=== PATIENT | female | born 1930 | race Caucasian/White ===

== ENCOUNTER 2017-02-04 16:18 | Inpatient (IN) | payer MEDICARE ==
[~2017-02-04 16:18] MED LIST: Dexamethasone 20 MG/5 ML VIAL ONE; Ondansetron HCl/PF 4 MG/2 ML Vial ONE; Propofol 200 MG/20 ML VIAL ONE
[2017-02-04 17:31] LABS: ALT (SGPT) 16 U/L (8-55); AST (SGOT) 26 U/L (5-34); Alkaline Phosphatase 110 U/L (40-150); Anion Gap 13 mmol/L (10-20); BUN (Urea Nitrogen) 11 mg/dL (9.8-20.1); Bilirubin, Total 0.8 mg/dL (0.2-1.2); Calc. Creatinine Clearance 0 mL/min (70-130); Calcium 9.6 mg/dL (7.8-10.44); Carbon Dioxide 25 mmol/L (23-31); Chloride 95 mmol/L (98-107); Estimated GFR-MDRD 85; Globulin 3.7 g/dL (2.4-3.5); Glucose 101 mg/dL (83-110); Potassium 3.6 mmol/L (3.5-5.1); Protein, Total 7.7 g/dL (6.0-8.3); Sodium 129 mmol/L (136-145)
[2017-02-04] MEDS ORDERED: Fentanyl 100 MCG/2 ML VIAL ONE ×2 (17:38→21:00)
[2017-02-04] MEDS ORDERED: Piperacillin/Tazobactam 3.375 GM in Sodium Chloride 0.9% 100 ML IVPB SCH ×2 (18:00→23:59)
[2017-02-04] MEDS ORDERED: Neomycin-Polymyxin 1 ML AMP ONE ×2 (18:05→19:43)
[2017-02-04 18:09] LABS: Band 6 % (5-11); Differential Comment Atypical Mono-like; Hemoglobin 9.7 g/dL (12.0-16.0); Lymphocytes 8 % (21-51); MDiff Complete? YES; Mean Corpuscular HGB CONC 30.9 g/dL (32.0-36.0); Mean Corpuscular Hemoglobin 28.1 pg (27.0-31.0); Mean Corpuscular Volume 90.9 fl (81.0-99.0); Mean Platelet Volume 9.7 fL (7.4-10.4); Metamyelocyte 4 % (0-0); Monocytes 45 % (0-10); Myelocyte 5 % (0-0); Neutrophil 16 % (42-75); PLT Morphology Comment Appears Adequate; Platelet Count 249 thou/uL (130-400); Polychromasia MODERATE = 3-4 cells (100X) (0-2/hpf); RBC Distribution Width 14.3 % (11.5-14.5); Reactive Lymphocytes 3 % (0-10); Red Blood Cell (RBC) Count 3.43 mill/uL (4.20-5.40); Reflex for Review?? YES
[2017-02-04] MEDS ORDERED: Morphine 4 MG/ML VIAL ONE (18:55)
--- NOTE | 2017-02-04 19:04 | RAD ---
RIGHT FEMUR TWO VIEWS: History: Pain. Comparison: None. FINDINGS: No fracture. No cortical irregularity. No periosteal reaction. IMPRESSION: No fracture. POS: ANNAMARIA
--- NOTE | 2017-02-04 19:05 | RAD ---
FOUR VIEWS RIGHT KNEE: History: Pain. Comparison: None. FINDINGS: Suprapatellar effusion. Joint spaces are preserved. No fracture. No malalignment. IMPRESSION: Suprapatellar effusion. POS: ANNAMARIA
[2017-02-04] MEDS ORDERED: Piperacillin/Tazobactam 3.375 GM VIAL ONE (19:58)
[2017-02-04] MEDS ORDERED: Acetaminophen 325 MG TAB PO PRN (20:50)
[2017-02-04] MEDS ORDERED: HYDROcodone/Acetaminophen 7.5/325 mg Tablet PO PRN (20:50)
[2017-02-04] MEDS ORDERED: Ondansetron HCl/PF 4 MG/2 ML Vial IVP PRN (20:52)
[2017-02-04] MEDS ORDERED: Promethazine HCl 25 MG/ML VIAL IM PRN (20:52)
[2017-02-04] MEDS ORDERED: Promethazine HCl 25 MG/ML VIAL SLOW IVP PRN (20:52)
[2017-02-04] MEDS ORDERED: Timolol 0.5% Ophth Soln 5 ml Bottle EA EYE SCH (23:00)
[2017-02-04] MEDS ORDERED: Brimonidine Tartrate 0.2% Ophth Soln 5 ml Bottle EA EYE SCH (23:00)
[2017-02-04] MEDS ORDERED: Dorzolamide HCl 2% Ophth Soln 10 ml Bottle EA EYE SCH (23:00)
[2017-02-04] MEDS: Sodium Chloride 0.9% 1,000 ML IV SCH (23:21)
[2017-02-04] MEDS: Latanoprost 0.005% Ophth Soln 2.5 ml Bottle EA EYE SCH ×2 (23:25→23:31)
[2017-02-04] MEDS ORDERED: Latanoprost 0.005% Ophth Soln 2.5 ml Bottle L EYE SCH (23:45)
[2017-02-05] MEDS: Piperacillin/Tazobactam 3.375 GM in Sodium Chloride 0.9% 100 ML IVPB SCH ×4 (02:30→20:54)
[2017-02-05 05:23] LABS: Band 10 % (5-11); Hemoglobin 8.9 g/dL (12.0-16.0); Lymphocytes 14 % (21-51); MDiff Complete? YES; Mean Corpuscular HGB CONC 30.4 g/dL (32.0-36.0); Mean Corpuscular Hemoglobin 28.1 pg (27.0-31.0); Mean Corpuscular Volume 92.7 fl (81.0-99.0); Mean Platelet Volume 10.3 fL (7.4-10.4); Metamyelocyte 4 % (0-0); Monocytes 35 % (0-10); Myelocyte 1 % (0-0); Neutrophil 36 % (42-75); PLT Morphology Comment Appears Adequate; Platelet Count 215 thou/uL (130-400); RBC Distribution Width 14.3 % (11.5-14.5); Red Blood Cell (RBC) Count 3.17 mill/uL (4.20-5.40); White Blood Cell (WBC) Count 63.5 thou/uL (4.8-10.8)
[2017-02-05] MEDS: Levothyroxine Sodium 75 MCG TAB PO SCH (05:27)
[2017-02-05] MEDS: Brimonidine Tartrate 0.2% Ophth Soln 5 ml Bottle EA EYE SCH ×2 (08:27→21:00)
[2017-02-05] MEDS: Dorzolamide HCl 2% Ophth Soln 10 ml Bottle EA EYE SCH ×2 (08:27→21:00)
[2017-02-05] MEDS: Timolol 0.5% Ophth Soln 5 ml Bottle EA EYE SCH ×2 (08:28→21:00)
[2017-02-05] MEDS: Multivit, Therapeutic 1 TAB PO SCH (08:30)
[2017-02-05] MEDS: Vancomycin HCl 1 GM in Premix Bag 1 BAG IVPB SCH ×2 (08:30→21:02)
--- NOTE | 2017-02-05 09:40 | OP ---
DATE OF SURGERY: 02/04/2017 PREOPERATIVE DIAGNOSIS: Right septic hip. POSTOPERATIVE DIAGNOSIS: Right septic hip. SURGICAL PROCEDURE: Incision and drainage of right hip. ANESTHESIA: LMA. SURGEON: Rigo Saldaña M.D. BLOOD LOSS: Approximately 50 mL. COMPLICATIONS: None. DRAINS: Hemovac x 1. SPECIMEN: Swabs x2 sent for Gram stain culture and sensitivity. OUTCOME: Satisfactory. INDICATIONS: The patient is an 86-year-old lady with a 48-hour history of worsening right thigh and groin pain. Earlier today the patient was seen and evaluated at the [facility] in [facility] where workup included x-ray of the hip, CT scan of the hip as well as laboratory. ASSESSMENT: The patient was found to have an elevated white blood cell count of 40,000, extreme groi n pain on the right side and a CT scan that showed evidence of an effusion within the right hip. Giv en concern regarding septic hip the patient was transferred to [facility]. Upon my assessment in the emergency room the patient was found to have severe groin pain with any type of hip flexion or even log rolling of the thigh and her white count had elevated up to 50,000. X-rays of the femur sh owed no evidence of mass within the thigh. Her knee was found to be relatively normal, although she complained of some nonspecific knee pain bilaterally. Given the findings of extreme pain with any hi p motion and elevated white count, we have opted to proceed with incision and drainage of this right hip. Informed consent has been obtained. I believe all questions answered. PROCEDURE IN DETAIL: After the induction of LMA anesthesia, the patient was positioned in the left l ateral decubitus position and then a sterile prep and drape was performed of the right lower extremit y. Next, a small curvilinear incision was made centered over the greater trochanter. After the skin was sharply incised, dissection was carried down bluntly to the underlying tensor fascia and fascia marko. This was incised in line with the skin incision and reflected anteriorly and posteriorly. The trochanteric bursa was swept off of the short external rotators. Next, exploiting the interval betw een the piriformis and the superior gemelli the capsule was identified and a T capsulotomy was perfor med. It should be noted that a yellow colored slightly cloudy fluid did come up from the hip capsule . This was swabbed x2 and sent for Gram stain, culture and sensitivity. There was not an excessive amount of volume within the hip capsule, although clearly it was under pressure. Next 6 liters yolette l saline using Pulsavac was irrigated through the hip through this capsulotomy. At the completion of this, the hip capsule was left open and a Hemovac drain was laid overlying the hip capsule. The fas jhonny marko and tensor fascia was reapproximated with #2 Vicryl in running fashion and then Puja's fas jhonny closed in 0 Vicryl followed by 2-0 Vicryl and staple closure for the skin. A Xeroform gauze tape dressing was applied to the thigh and then the patient was transferred to recovery room in stable co ndition. There were no complications. She tolerated the procedure well.
--- NOTE | 2017-02-05 13:17 | EKG ---
Test Reason : STAT Blood Pressure : / mmHG Vent. Rate : 104 BPM Atrial Rate : 104 BPM P-R Int : 172 ms QRS Dur : 082 ms QT Int : 326 ms P-R-T Axes : 086 047 054 degrees QTc Int : 428 ms Sinus tachycardia Otherwise normal ECG No previous ECGs available Confirmed by MAU ZAMORA ([id number]) on 02/05/2017 1:17:20 PM Referred By: Confirmed By:MAU ZAMORA
[2017-02-05] MEDS: Sodium Chloride 0.9% 1,000 ML IV SCH (17:41)
[2017-02-05] MEDS: traMADol HCl 50 MG TAB PO PRN (18:01)
[2017-02-05] MEDS: Latanoprost 0.005% Ophth Soln 2.5 ml Bottle L EYE SCH (20:59)
[2017-02-06] MEDS: traMADol HCl 50 MG TAB PO PRN ×2 (01:30→13:28)
[2017-02-06] MEDS: Piperacillin/Tazobactam 3.375 GM in Sodium Chloride 0.9% 100 ML IVPB SCH ×4 (03:48→21:08)
[2017-02-06] MEDS: Levothyroxine Sodium 75 MCG TAB PO SCH (05:15)
[2017-02-06 06:45] LABS: Anion Gap 12 mmol/L (10-20); BUN (Urea Nitrogen) 17 mg/dL (9.8-20.1); Calc. Creatinine Clearance 47 mL/min (70-130); Calcium 8.9 mg/dL (7.8-10.44); Carbon Dioxide 25 mmol/L (23-31); Chloride 97 mmol/L (98-107); Estimated GFR-MDRD 62; Glucose 125 mg/dL (83-110); Magnesium 1.8 mg/dL (1.6-2.6); Potassium 3.5 mmol/L (3.5-5.1); Sodium 130 mmol/L (136-145)
[2017-02-06 06:57] LABS: White Blood Cell (WBC) Count 63.1 thou/uL (4.8-10.8)
[2017-02-06 08:04] LABS: Vancomycin, Trough 7.9 ug/mL
[2017-02-06 08:44] LABS: Band 1 % (5-11); Differential Comment Atypical Mono-like; Hemoglobin 6.9 g/dL (12.0-16.0); Lymphocytes 16 % (21-51); MDiff Complete? YES; Mean Corpuscular HGB CONC 30.3 g/dL (32.0-36.0); Mean Corpuscular Hemoglobin 27.8 pg (27.0-31.0); Mean Corpuscular Volume 91.9 fl (81.0-99.0); Mean Platelet Volume 10.1 fL (7.4-10.4); Monocytes 41 % (0-10); Neutrophil 37 % (42-75); Platelet Count 239 thou/uL (130-400); RBC Distribution Width 14.2 % (11.5-14.5); Red Blood Cell (RBC) Count 2.48 mill/uL (4.20-5.40)
[2017-02-06] MEDS: Timolol 0.5% Ophth Soln 5 ml Bottle EA EYE SCH ×2 (09:13→21:08)
[2017-02-06] MEDS: Brimonidine Tartrate 0.2% Ophth Soln 5 ml Bottle EA EYE SCH ×2 (09:14→21:08)
[2017-02-06] MEDS: Dorzolamide HCl 2% Ophth Soln 10 ml Bottle EA EYE SCH ×2 (09:14→21:08)
[2017-02-06] MEDS: Multivit, Therapeutic 1 TAB PO SCH (09:15)
[2017-02-06] MEDS: Vancomycin HCl 1 GM in Premix Bag 1 BAG IVPB SCH ×2 (10:09→21:07)
[2017-02-06] MEDS ORDERED: Polyethylene Glycol 3350 17 GM Packet PO PRN (10:27)
[2017-02-06] MEDS ORDERED: Bisacodyl 10 MG SUPP PR PRN (10:29)
[2017-02-06] MEDS: Sodium Chloride 0.9% 1,000 ML IV SCH (13:31)
--- NOTE | 2017-02-06 15:01 | PDOC.PN ---
- Subjective Encounter Start Date: 02/06/17 Encounter Start Time: 10:40 Pt seen and examined. Case discussed with Dr Saldaña, and ijeoma Kam of Oncology. Pt says her hip feels better, not moving her right leg much out o fear of pain. No F/C, no N/V/D/C. started on Vanc and zosyn post op by ortho. peripheral smear back and shows evidence of myoproliferation. Dr Linton of oncology contacted and recommended conservative management and agrees that right hip effusion *COULD* be reactive 10 point ROS performed and neg for all accept as per HPI - Objective Resuscitation Status: FULL Vital Signs & Weight: Vital Signs (12 hours) Temp Pulse Resp BP BP Pulse Ox 02/06/17 12:00 97.6 F 98 12 109/69 94 L 02/06/17 09:13 98 134/68 02/06/17 08:00 97.6 F 98 14 134/68 98 02/06/17 07:55 97.6 F 98 14 98 Weight Weight 143 lb I&O: 02/05/17 02/06/17 02/07/17 06:59 06:59 06:59 Intake Total 950 3240 Output Total 20 15 Balance 930 3225 Result Diagrams: 02/06/17 06:00 02/06/17 06:00 Radiology Reviewed by me: Yes EKG Reviewed by me: Yes Phys Exam - Physical Examination Constitutional: NAD HEENT: PERRLA, moist MMs, sclera anicteric, oral pharynx no lesions Neck: no nodes, no JVD, supple, full ROM Respiratory: no wheezing, no rales, no rhonchi, clear to auscultation bilateral Cardiovascular: RRR, no rub HSM apex, TESFAYE 2/6 RUSB Gastrointestinal: soft, non-tender, no distention, positive bowel sounds Musculoskeletal: no edema, pulses present Neurological: non-focal, normal sensation, moves all 4 limbs Lymphatic: no nodes Psychiatric: normal affect, A&O x 3 Skin: no rash, normal turgor, cap refill <2 seconds Dx/Plan (1) Arthritis of right hip Code(s): M16.11 - UNILATERAL PRIMARY OSTEOARTHRITIS, RIGHT HIP Status: Acute Comment: s/p I&D, bacterial culture neg so far. No path, cyto, tissue. pt feels markedly better. suspect noninfectious, RF neg, ESTEFANIA and ANCA pending. no AFB or fungal cultures or smears. hold abx fo rnow. no other effusions or pain at present. ESR 70s and CRP 15+ (2) Right hip joint effusion Code(s): M25.451 - EFFUSION, RIGHT HIP Status: Acute Comment: drained (3) Myelodysplasia (myelodysplastic syndrome) Code(s): D46.9 - MYELODYSPLASTIC SYNDROME, UNSPECIFIED Status: Chronic Comment: WBC 12k in 11/2016, now 50 up to 63K with monocytic predominance. Serum cytology ordered. Dr Kumar recommends concervative management and no BM Bx for now as it likely wont change treatment plan (4) Hypothyroidism Code(s): E03.9 - HYPOTHYROIDISM, UNSPECIFIED Status: Chronic Qualifiers: Hypothyroidism type: acquired Qualified Code(s): E03.9 - Hypothyroidism, unspecified Comment: AM TSH - Plan * .
--- NOTE | 2017-02-06 18:12 | EKG ---
Test Reason : C/O CHEST PAIN Blood Pressure : / mmHG Vent. Rate : 087 BPM Atrial Rate : 087 BPM P-R Int : 164 ms QRS Dur : 086 ms QT Int : 376 ms P-R-T Axes : 077 041 048 degrees QTc Int : 452 ms Normal sinus rhythm Normal ECG Confirmed by MAU ZAMORA ([id number]) on 02/06/2017 6:12:06 PM Referred By: ERA SCHOFIELD PA-C Confirmed By:MAU ZAMORA
[2017-02-06] MEDS: Docusate 100 MG CAP PO SCH (21:07)
[2017-02-06] MEDS: Latanoprost 0.005% Ophth Soln 2.5 ml Bottle L EYE SCH (21:08)
[2017-02-07] MEDS: traMADol HCl 50 MG TAB PO PRN (02:41)
[2017-02-07] MEDS: Piperacillin/Tazobactam 3.375 GM in Sodium Chloride 0.9% 100 ML IVPB SCH ×4 (02:41→20:58)
[2017-02-07] MEDS: Levothyroxine Sodium 75 MCG TAB PO SCH (05:23)
[2017-02-07 06:32] LABS: Anion Gap 10 mmol/L (10-20); BUN (Urea Nitrogen) 14 mg/dL (9.8-20.1); Calc. Creatinine Clearance 58 mL/min (70-130); Calcium 8.8 mg/dL (7.8-10.44); Carbon Dioxide 27 mmol/L (23-31); Chloride 99 mmol/L (98-107); Estimated GFR-MDRD 79; Glucose 107 mg/dL (83-110); Potassium 3.4 mmol/L (3.5-5.1); Sodium 133 mmol/L (136-145)
[2017-02-07 06:59] LABS: Band 6 % (5-11); Hemoglobin 6.7 g/dL (12.0-16.0); Lymphocytes 9 % (21-51); MDiff Complete? YES; Mean Corpuscular HGB CONC 31.3 g/dL (32.0-36.0); Mean Corpuscular Hemoglobin 28.8 pg (27.0-31.0); Mean Corpuscular Volume 92.1 fl (81.0-99.0); Monocytes 56 % (0-10); Neutrophil 29 % (42-75); Platelet Count 263 thou/uL (130-400); RBC Distribution Width 14.2 % (11.5-14.5); Red Blood Cell (RBC) Count 2.32 mill/uL (4.20-5.40); White Blood Cell (WBC) Count 40.2 thou/uL (4.8-10.8)
[2017-02-07 08:21] LABS: Antinuclear AB Negative (Negative)
[2017-02-07] MEDS: Vancomycin HCl 1 GM in Premix Bag 1 BAG IVPB SCH ×2 (10:22→20:58)
[2017-02-07] MEDS: Multivit, Therapeutic 1 TAB PO SCH (10:22)
[2017-02-07] MEDS: Docusate 100 MG CAP PO SCH ×2 (10:23→20:58)
[2017-02-07] MEDS: Dorzolamide HCl 2% Ophth Soln 10 ml Bottle EA EYE SCH ×2 (10:23→20:59)
[2017-02-07] MEDS: Brimonidine Tartrate 0.2% Ophth Soln 5 ml Bottle EA EYE SCH ×2 (10:23→20:59)
[2017-02-07] MEDS: HYDROcodone/Acetaminophen 7.5/325 mg Tablet PO PRN ×2 (10:36→21:01)
[2017-02-07] MEDS: Timolol 0.5% Ophth Soln 5 ml Bottle EA EYE SCH ×2 (10:38→20:59)
[2017-02-07] MEDS: Sodium Chloride 0.9% 1,000 ML IV SCH ×2 (10:40→20:58)
--- NOTE | 2017-02-07 19:13 | PDOC.PN ---
- Subjective Encounter Start Date: 02/07/17 Encounter Start Time: 19:00 Subjective: f/u for septic R hip s/p I&D POD #2. Receiving Vancomycin and Zosyn. -: Also with myeloproliferative evidence on CBC with WBC elevated 40K down -: from peak 63.5K. - Objective MAR Reviewed: Yes Vital Signs & Weight: Vital Signs (12 hours) Temp Pulse Pulse Resp BP BP BP 02/07/17 13:30 98 108/52 L 02/07/17 10:38 108 H 119/62 02/07/17 08:08 98.9 F 108 H 16 119/62 Pulse Ox Pulse Ox 02/07/17 13:30 96 02/07/17 10:38 02/07/17 08:08 92 L Weight Weight 143 lb I&O: 02/06/17 02/07/17 02/08/17 06:59 06:59 06:59 Intake Total 3240 2600 Output Total 15 Balance 3225 2600 Result Diagrams: 02/07/17 05:16 02/07/17 05:16 Additional Labs: Microbiology 02/04/17 20:11 Hip - Right Bacterial Culture - Preliminary 02/04/17 20:11 Hip - Right Anaerobic Culture - Preliminary NO ANAEROBES ISOLATED IN 3 DAYS 02/04/17 20:09 Hip - Right Bacterial Culture - Preliminary 02/04/17 20:09 Hip - Right Anaerobic Culture - Preliminary NO ANAEROBES ISOLATED IN 3 DAYS 02/04/17 17:08 Venous blood - Left Hand Blood Culture - Preliminary NO GROWTH AT 48 HOURS 02/04/17 16:59 Venous blood - Left Arm Blood Culture - Preliminary NO GROWTH AT 48 HOURS Laboratory Tests 02/04/17 02/04/17 02/05/17 17:00 17:00 03:28 WBC 50.0 H* 63.5 H* Hgb 9.7 L 8.9 L Sodium 129 L Vancomycin Trough Rheumatoid Factor ESTEFANIA Screen 02/05/17 02/05/17 02/06/17 16:48 16:48 03:44 WBC Hgb Sodium Vancomycin Trough 7.9 Rheumatoid Factor Negative ESTEFANIA Screen Negative 02/06/17 02/06/17 06:00 06:00 WBC 63.1 H* Hgb 6.9 L Sodium 130 L Vancomycin Trough Rheumatoid Factor ESTEFANIA Screen Phys Exam - Physical Examination mild distress HEENT: PERRLA, oral pharynx no lesions Neck: no JVD, supple diminished in bases tachycardic Gastrointestinal: soft, non-tender, no distention, positive bowel sounds R hip with surgical dressing in place Musculoskeletal: pulses present, edema present Psychiatric: A&O x 3 Skin: normal turgor, cap refill <2 seconds Dx/Plan (1) Septic hip Code(s): M00.9 - PYOGENIC ARTHRITIS, UNSPECIFIED Status: Acute Comment: s/p I&D POD #2, local care, IV Vancomycin and Zosyn (2) Status post incision and drainage Code(s): Z98.890 - OTHER SPECIFIED POSTPROCEDURAL STATES Status: Acute Comment: see above #1 (3) Hypothyroidism Code(s): E03.9 - HYPOTHYROIDISM, UNSPECIFIED Status: Chronic Qualifiers: Hypothyroidism type: acquired Qualified Code(s): E03.9 - Hypothyroidism, unspecified Comment: Continue Levothyroxine (4) Myelodysplasia (myelodysplastic syndrome) Code(s): D46.9 - MYELODYSPLASTIC SYNDROME, UNSPECIFIED Status: Chronic Comment: WBC 12k in 11/2016, now 50 up to 63K with monocytic predominance. Serum cytology ordered. Dr Kumar recommends concervative management and no BM Bx for now as it likely wont change treatment plan, trending down currently (5) Normocytic anemia Code(s): D64.9 - ANEMIA, UNSPECIFIED Status: Acute Comment: Likely due to myelodysplastic process, no active blood loss identified, repeat CBC in am - Plan continue antibiotics, PT/OT, DVT proph w/SCDs Stable currently -: Pain control -: Continue Zosyn and Vancomycin -: Serial CBC monitoring -: Continue IVF at 50ml/h * AM lab: BMP, CBC
[2017-02-07 20:33] LABS: Vancomycin, Trough 27.5 ug/mL
[2017-02-07] MEDS: Latanoprost 0.005% Ophth Soln 2.5 ml Bottle L EYE SCH (20:59)
--- NOTE | 2017-02-07 22:48 | CON ---
DATE OF CONSULTATION: 02/05/2017 REQUESTING PHYSICIAN: Rigo Saldaña MD REASON FOR CONSULTATION: Acute arthritis and high white count without a normal appearance. PRIMARY CARE PHYSICIAN: Anthony Cardoza MD HISTORY OF PRESENT ILLNESS: Ms. Menendez is an extremely pleasant 86-year-old white female with a benjamin ited past medical history of hypothyroidism and some kind of bone marrow problem who was in her [facility] state of health until this week. 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 She developed right hip pain that st arted about 48 hours prior to presentation and got acutely worse over the preceding 18 hours or so. It was increased with movement and weightbearing. She denies any fevers or chills. No chest pain, n o shortness of breath, no nausea and vomiting. No chills, rigors, or night sweats. She did state that a couple of days prior to this hip hurting, she did have some knee swelling in the right knee. She says she also has this off and on periodically. Workup in the emergency department suggested a large right hip effusion, white blood cell count on pr esentation was 50,000, Orthopedic was consulted and was concerned about septic arthritis, so took her to the operating room. Dr. Saldaña states he got some cloudy fluid out, but no kelsea pus. He sent swab cultures, but did not obtain any fluid. Today, white blood cell counts from 50,000 to 63,000 a nd had a 35% monocytosis and I was concerned this might not be infectious or might be leukemic and wa nted us to evaluate. Further history, the patient states that she did see Dr. Linton after her other primary Dr. Rosamaria Loaiza found some lab abnormalities. Her white blood cell count over the last year has been between 7,000 and 12,000. She saw Dr. Linton, and did not get a bone marrow biopsy. A peripheral smear did suggest a myelodysplastic syndrome with a monocytic predominance in a couple of metamyelocytes and m yelocytes. She has not had a white count up to this magnitude before. She denies any recurrent complaints. PAST MEDICAL HISTORY: 1. Hypothyroidism. 2. Bone marrow disorder. PAST SURGICAL HISTORY: 1. Hysterectomy, remotely. 2. Bladder sling. 3. Tonsillectomy as a child. HOME MEDICATIONS: Levothyroxine 75 mcg daily. ALLERGIES: NKDA. FAMILY HISTORY: Significant for her parents lived being in their 90 to 93 and 96 per her mother and father, respectively. Her mother was diagnosed with breast cancer at age of 80, but lived to be 93 a nd her dad at 96 with natural causes. She has a brother who has had a stroke. She had a sister that had some kind of arthritis that she had gold infusions for. She has several grandchildren numbering total of 5 with Abraham's thyroiditis. SOCIAL HISTORY: Negative for habits x3. She lives in a [place] currently with her and has been there only for a couple of weeks. She goes to a farm regularly to work there. Her medical decision maker is her niece, Indigo Garnica, phone number is [phone]. We discussed co de status and it must be a FULL CODE at this time. REVIEW OF SYSTEMS: A 10-point review of systems was performed, negative for all systems except as st ated as per HPI. PHYSICAL EXAMINATION: VITAL SIGNS: Temperature 98.1, pulse 93, blood pressure 124/66, respiratory 16, sat 97% on 2 liters, 95% on room air. GENERAL: She is awake. She is alert. She is oriented. She is a well-developed, well-nourished, ol jaden white female, appears to be in no distress. HEENT: Normocephalic, atraumatic. Pupils are equal and reactive bilaterally. Mucous membranes are moist. She had no visible lesions, no thrush. NECK: Supple, without lymphadenopathy, JVD, or thyromegaly. She has no carotid bruits. She has nor mal carotid upstrokes. RESPIRATORY: Lungs are clear. She has no wheezes, no rales, no rhonchi. She has good air movement. Symmetrical chest excursion. There is no prolonged expiratory phase. CARDIOVASCULAR: She has a normal S1 and S2. She is regular with a normal rate. She does have a 2-3 /6 systolic ejection murmur best heard at the right upper sternal border and a 3/6 holosystolic murmu r of two different types, one best over the apex without radiation and one heard at the right lower s ternal border, radiates to bilateral axillae. MUSCULOSKELETAL: Right hip has a drain in place. Left hip, bilateral knees, elbows, shoulders appea r to be uninflamed. There are mild palpable effusions in her bilateral knees, but no tenderness. SKIN: Otherwise warm and well perfused. No rashes or lesions. NEUROLOGIC: Cranial nerves II through XII grossly intact without focal neurologic deficits. She has normal speech pattern and 5/5 strength. LABORATORY AND DIAGNOSTIC DATA: CMP showed a sodium 129, potassium 3.6, chloride 95, bicarbonate 25, BUN 11, creatinine 0.66, glucose 107 with a calcium 9.6. Liver function is normal. White blood jarrod l count today's, at date of consultation is 63,500 up from 50,000. She has 36% neutrophils, 10% band s, 4 metamyelocytes, and 1 myelocyte. She has 14 lymphocytes and 35 monocytes. Hemoglobin today is 8.9/9.7 preop and her hematocrit is 29.4, platelets are 215,000. X-ray of the knee showed a suprapat ellar effusion on admission, a right femur showed no evidence of fracture. She had an echocardiogram done 10/14/2016 and showed an EF of 55% to 60%, mild dilation of left atrium, moderate , mild MR, [id number] tricuspid regurgitation, and moderately increased pulmonary pressures. ASSESSMENT AND PLAN: 1. Right hip effusion, acute, certainly could be arthritis. She is feeling much better since surger y. No other joints are bothering her at this time. We did not get fluid, so we cannot get a cell co unt or cytology on that fluid. Differential includes septic arthritis versus leukemic effusion versu s reactive arthritis. She has no history of antecedent infection in the upper respiratory tract. Reynaldo glaser did not get antibiotics prior to surgery. She was started on vancomycin and Zosyn by the orthopedi c team. We would favor stopping her antibiotics. I do not think this represents an acute bacterial infection. I certainly could be AFB or fungal or atypical bacteria, however, without fluid, we are u nable to get these cultures. We will monitor for signs of reaccumulation or reinflammation. 2. Hypothyroidism: We will check TSH, continue levothyroxine 75 mcg daily. 3. Myelodysplastic syndrome: Awaiting peripheral smear. White blood cell count certainly has had s ignificant increase. She certainly could progress from myelodysplasia to myeloproliferative disorder . We will get serum flow cytometry. 4. Hyponatremia. Sodium is 129, asymptomatic.
[2017-02-08] MEDS: Piperacillin/Tazobactam 3.375 GM in Sodium Chloride 0.9% 100 ML IVPB SCH ×4 (02:51→21:33)
[2017-02-08] MEDS: Levothyroxine Sodium 75 MCG TAB PO SCH (05:25)
[2017-02-08 06:00] LABS: Anion Gap 9 mmol/L (10-20); BUN (Urea Nitrogen) 9 mg/dL (9.8-20.1); Calc. Creatinine Clearance 60 mL/min (70-130); Calcium 8.6 mg/dL (7.8-10.44); Carbon Dioxide 28 mmol/L (23-31); Chloride 101 mmol/L (98-107); Estimated GFR-MDRD 82; Glucose 112 mg/dL (83-110); Potassium 3.3 mmol/L (3.5-5.1); Sodium 135 mmol/L (136-145)
[2017-02-08 06:18] LABS: Band 2 % (5-11); Eosinophils 1 % (0-10); Lymphocytes 7 % (21-51); MDiff Complete? YES; Mean Corpuscular HGB CONC 31.7 g/dL (32.0-36.0); Mean Corpuscular Hemoglobin 29.1 pg (27.0-31.0); Mean Corpuscular Volume 91.8 fl (81.0-99.0); Mean Platelet Volume 9.4 fL (7.4-10.4); Monocytes 51 % (0-10); Neutrophil 39 % (42-75); Platelet Count 292 thou/uL (130-400); RBC Distribution Width 14.2 % (11.5-14.5); Red Blood Cell (RBC) Count 2.08 mill/uL (4.20-5.40); White Blood Cell (WBC) Count 32.3 thou/uL (4.8-10.8)
[2017-02-08] MEDS: Vancomycin HCl 1 GM in Premix Bag 1 BAG IVPB SCH (08:07)
[2017-02-08] MEDS: Docusate 100 MG CAP PO SCH ×2 (09:26→21:37)
[2017-02-08] MEDS: Multivit, Therapeutic 1 TAB PO SCH (09:26)
[2017-02-08] MEDS: Timolol 0.5% Ophth Soln 5 ml Bottle EA EYE SCH ×2 (09:27→21:36)
[2017-02-08] MEDS: Brimonidine Tartrate 0.2% Ophth Soln 5 ml Bottle EA EYE SCH ×2 (09:28→21:36)
[2017-02-08] MEDS: Dorzolamide HCl 2% Ophth Soln 10 ml Bottle EA EYE SCH ×2 (09:28→21:35)
[2017-02-08] MEDS: HYDROcodone/Acetaminophen 7.5/325 mg Tablet PO PRN ×2 (09:39→22:02)
--- NOTE | 2017-02-08 15:47 | PDOC.PN ---
- Subjective Encounter Start Date: 02/08/17 Encounter Start Time: 15:35 Subjective: f/u for septic R hip s/p I&D POD #3 tx with Vancomycin and Zosyn. -: Receiving 1u PRBC's today with Hgb 6. - Objective Vital Signs & Weight: Vital Signs (12 hours) Temp Pulse Pulse Resp BP BP BP 02/08/17 15:25 98.5 F 109 H 20 149/72 H 02/08/17 12:40 98.5 F 100 20 127/58 L 02/08/17 12:24 98.7 F 101 H 20 124/49 L 02/08/17 11:00 98.1 F 95 16 96/56 L 02/08/17 09:27 115 H 152/69 H 02/08/17 07:00 98.2 F 115 H 18 152/69 H 02/08/17 04:36 98.0 F 106 H 18 147/68 H Pulse Ox 02/08/17 15:25 98 02/08/17 12:40 97 02/08/17 12:24 98 02/08/17 11:00 91 L 02/08/17 09:27 02/08/17 07:00 97 02/08/17 04:36 97 Weight Weight 143 lb I&O: 02/07/17 02/08/17 02/09/17 06:59 06:59 06:59 Intake Total 2600 2540 350 Balance 2600 2540 350 Result Diagrams: 02/08/17 05:00 02/08/17 05:00 Additional Labs: Microbiology 02/04/17 20:11 Hip - Right Bacterial Culture - Preliminary 02/04/17 20:11 Hip - Right Anaerobic Culture - Preliminary NO ANAEROBES ISOLATED IN 3 DAYS 02/04/17 20:11 Hip - Right Bacterial Culture - Preliminary 02/04/17 20:11 Hip - Right Anaerobic Culture - Preliminary Coagulase Neg Staphylococcus NO ANAEROBES ISOLATED IN 4 DAYS 02/04/17 20:09 Hip - Right Bacterial Culture - Preliminary 02/04/17 20:09 Hip - Right Anaerobic Culture - Preliminary NO ANAEROBES ISOLATED IN 3 DAYS 02/04/17 17:08 Venous blood - Left Hand Blood Culture - Preliminary NO GROWTH AT 48 HOURS 02/04/17 16:59 Venous blood - Left Arm Blood Culture - Preliminary NO GROWTH AT 48 HOURS Laboratory Tests 02/04/17 02/04/17 02/05/17 17:00 17:00 03:28 WBC 50.0 H* 63.5 H* Hgb 9.7 L 8.9 L Sodium 129 L Potassium TSH 3rd Generation Vancomycin Trough Rheumatoid Factor ESTEFANIA Screen 02/05/17 02/05/17 02/06/17 16:48 16:48 03:44 WBC Hgb Sodium Potassium TSH 3rd Generation Vancomycin Trough 7.9 Rheumatoid Factor Negative ESTEFANIA Screen Negative 02/06/17 02/06/17 02/07/17 06:00 06:00 05:16 WBC 63.1 H* Hgb 6.9 L Sodium 130 L Potassium 3.4 L TSH 3rd Generation Vancomycin Trough Rheumatoid Factor ESTEFANIA Screen 02/07/17 02/07/17 02/07/17 05:16 05:16 20:05 WBC 40.2 H* Hgb 6.7 L Sodium Potassium TSH 3rd Generation 0.6581 Vancomycin Trough 27.5 Rheumatoid Factor ESTEFANIA Screen Phys Exam - Physical Examination Constitutional: NAD HEENT: PERRLA, oral pharynx no lesions Neck: no JVD, supple Respiratory: no wheezing, clear to auscultation bilateral Cardiovascular: RRR Gastrointestinal: soft, non-tender, no distention, positive bowel sounds R hip with mild edema Musculoskeletal: pulses present Neurological: normal sensation, moves all 4 limbs Psychiatric: A&O x 3 Skin: normal turgor, cap refill <2 seconds Dx/Plan (1) Septic hip Code(s): M00.9 - PYOGENIC ARTHRITIS, UNSPECIFIED Status: Acute Comment: s/p I&D POD #3, local care, IV Vancomycin and Zosyn, hold Vancomycin and repeat Vanc level due to elevated value (2) Status post incision and drainage Code(s): Z98.890 - OTHER SPECIFIED POSTPROCEDURAL STATES Status: Acute Comment: see above #1 (3) Hypothyroidism Code(s): E03.9 - HYPOTHYROIDISM, UNSPECIFIED Status: Chronic Qualifiers: Hypothyroidism type: acquired Qualified Code(s): E03.9 - Hypothyroidism, unspecified Comment: Continue Levothyroxine (4) Myelodysplasia (myelodysplastic syndrome) Code(s): D46.9 - MYELODYSPLASTIC SYNDROME, UNSPECIFIED Status: Chronic Comment: WBC 12k in 11/2016, now 50 up to 63K with monocytic predominance. Serum cytology ordered. 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
[2017-02-08] MEDS ORDERED: Vancomycin HCl 750 GM in Premix Bag 1 BAG IVPB SCH (16:05)
[2017-02-08 16:14] LABS: ANCA Pattern <1:20 titer (Neg:<1:20); ANCA Total <1:20 titer (Neg:<1:20); Atypical pANCA <1:20 titer (Neg:<1:20); Myeloperoxidase AutoAbs <9.0 U/mL (0.0-9.0); Proteinase-3 AutoAbs Less than 3.5 U/mL (0.0-3.5)
[2017-02-08] MEDS: Latanoprost 0.005% Ophth Soln 2.5 ml Bottle L EYE SCH (21:33)
[2017-02-09] MEDS: Sodium Chloride 0.9% 1,000 ML IV SCH (02:53)
[2017-02-09] MEDS: Piperacillin/Tazobactam 3.375 GM in Sodium Chloride 0.9% 100 ML IVPB SCH ×4 (02:54→21:37)
[2017-02-09 06:21] LABS: Hemoglobin 7.5 g/dL (12.0-16.0); Mean Corpuscular HGB CONC 31.7 g/dL (32.0-36.0); Mean Corpuscular Volume 91.4 fl (81.0-99.0); Mean Platelet Volume 9.1 fL (7.4-10.4); Platelet Count 326 thou/uL (130-400); RBC Distribution Width 14.3 % (11.5-14.5); Red Blood Cell (RBC) Count 2.59 mill/uL (4.20-5.40)
[2017-02-09 06:41] LABS: Band 2 % (5-11); Lymphocytes 9 % (21-51); MDiff Complete? YES; Monocytes 58 % (0-10); Neutrophil 31 % (42-75); PLT Morphology Comment Appears Adequate
[2017-02-09] MEDS: Levothyroxine Sodium 75 MCG TAB PO SCH (06:55)
[2017-02-09 07:48] LABS: Anion Gap 13 mmol/L (10-20); BUN (Urea Nitrogen) 13 mg/dL (9.8-20.1); Calc. Creatinine Clearance 35 mL/min (70-130); Calcium 8.8 mg/dL (7.8-10.44); Carbon Dioxide 27 mmol/L (23-31); Chloride 100 mmol/L (98-107); Estimated GFR-MDRD 44; Glucose 109 mg/dL (83-110); Potassium 3.5 mmol/L (3.5-5.1); Sodium 136 mmol/L (136-145)
[2017-02-09] MEDS ORDERED: Vancomycin HCl 750 MG in Sodium Chloride 0.9% 250 ML 250 ML IVPB SCH (08:00)
[2017-02-09] MEDS: HYDROcodone/Acetaminophen 7.5/325 mg Tablet PO PRN (08:57)
[2017-02-09] MEDS: Multivit, Therapeutic 1 TAB PO SCH (08:59)
[2017-02-09] MEDS: Dorzolamide HCl 2% Ophth Soln 10 ml Bottle EA EYE SCH ×2 (09:00→21:45)
[2017-02-09] MEDS: Timolol 0.5% Ophth Soln 5 ml Bottle EA EYE SCH ×2 (09:00→21:45)
[2017-02-09] MEDS: Brimonidine Tartrate 0.2% Ophth Soln 5 ml Bottle EA EYE SCH ×2 (09:01→21:44)
[2017-02-09] MEDS: Docusate 100 MG CAP PO SCH ×2 (09:02→21:42)
[2017-02-09 15:12] LABS: Fungus Stain Final report (.)
[2017-02-09 15:12] LABS: Fungus Stain Final report (.)
[2017-02-09] MEDS: Calcium Carbonate 500 MG ChewTAB PO PRN (16:11)
--- NOTE | 2017-02-09 18:41 | PDOC.PN ---
- Subjective Encounter Start Date: 02/09/17 Encounter Start Time: 18:30 Subjective: f/u on I&D R hip effusion POD #4 on Vanc/Zosyn. Also s/p 1u PRBC's -: Hgb 6 now 7.5. Feels better overall. Ambulating further without pain. -: Some diarrhea noted. - Objective MAR Reviewed: Yes Vital Signs & Weight: Vital Signs (12 hours) Temp Pulse Resp BP Pulse Ox 02/09/17 16:00 98.7 F 95 20 128/66 98 02/09/17 12:00 98.8 F 84 16 100/56 L 96 02/09/17 09:30 98.8 F 84 16 02/09/17 08:00 98.7 F 102 H 16 139/57 L 96 02/09/17 07:00 98.8 F 95 18 109/61 93 L Weight Weight 143 lb I&O: 02/08/17 02/09/17 02/10/17 06:59 06:59 06:59 Intake Total 2540 1650 Balance 2540 1650 Result Diagrams: 02/09/17 05:52 02/09/17 05:52 Additional Labs: Microbiology 02/04/17 20:11 Hip - Right Bacterial Culture - Preliminary 02/04/17 20:11 Hip - Right Anaerobic Culture - Preliminary NO ANAEROBES ISOLATED IN 3 DAYS 02/04/17 20:11 Hip - Right Bacterial Culture - Preliminary 02/04/17 20:11 Hip - Right Anaerobic Culture - Preliminary Coagulase Neg Staphylococcus NO ANAEROBES ISOLATED IN 4 DAYS 02/04/17 20:09 Hip - Right Bacterial Culture - Preliminary 02/04/17 20:09 Hip - Right Anaerobic Culture - Preliminary NO ANAEROBES ISOLATED IN 3 DAYS 02/04/17 17:08 Venous blood - Left Hand Blood Culture - Preliminary NO GROWTH AT 48 HOURS 02/04/17 16:59 Venous blood - Left Arm Blood Culture - Preliminary NO GROWTH AT 48 HOURS Laboratory Tests 02/04/17 02/04/17 02/05/17 17:00 17:00 03:28 WBC 50.0 H* 63.5 H* Hgb 9.7 L 8.9 L Neutrophils % (Manual) Sodium 129 L Potassium TSH 3rd Generation Vancomycin Trough Rheumatoid Factor ESTEFANIA Screen 02/05/17 02/05/17 02/06/17 16:48 16:48 03:44 WBC Hgb Neutrophils % (Manual) Sodium Potassium TSH 3rd Generation Vancomycin Trough 7.9 Rheumatoid Factor Negative ESTEFANIA Screen Negative 02/06/17 02/06/17 02/07/17 06:00 06:00 05:16 WBC 63.1 H* Hgb 6.9 L Neutrophils % (Manual) Sodium 130 L Potassium 3.4 L TSH 3rd Generation Vancomycin Trough Rheumatoid Factor ESTEFANIA Screen 02/07/17 02/07/17 02/07/17 05:16 05:16 20:05 WBC 40.2 H* Hgb 6.7 L Neutrophils % (Manual) Sodium Potassium TSH 3rd Generation 0.6581 Vancomycin Trough 27.5 Rheumatoid Factor ESTEFANIA Screen 02/08/17 02/09/17 05:00 05:52 WBC 32.3 H Hgb 6.0 L Neutrophils % (Manual) 39 L 31 L Sodium Potassium TSH 3rd Generation Vancomycin Trough Rheumatoid Factor ESTEFANIA Screen Phys Exam - Physical Examination Constitutional: NAD HEENT: PERRLA, oral pharynx no lesions Neck: no JVD, supple Respiratory: no wheezing, clear to auscultation bilateral Cardiovascular: RRR Gastrointestinal: soft, non-tender, no distention, positive bowel sounds R hip with mild edema Musculoskeletal: pulses present Neurological: normal sensation, moves all 4 limbs Psychiatric: A&O x 3 Skin: normal turgor, cap refill <2 seconds Dx/Plan (1) Septic hip Code(s): M00.9 - PYOGENIC ARTHRITIS, UNSPECIFIED Status: Acute Comment: s/p I&D POD #4, local care, IV Vancomycin and Zosyn, hold Vancomycin and repeat Vanc level due to elevated value (2) Status post incision and drainage Code(s): Z98.890 - OTHER SPECIFIED POSTPROCEDURAL STATES Status: Acute Comment: see above #1 (3) Hypothyroidism Code(s): E03.9 - HYPOTHYROIDISM, UNSPECIFIED Status: Chronic Qualifiers: Hypothyroidism type: acquired Qualified Code(s): E03.9 - Hypothyroidism, unspecified Comment: Continue Levothyroxine (4) Myelodysplasia (myelodysplastic syndrome) Code(s): D46.9 - MYELODYSPLASTIC SYNDROME, UNSPECIFIED Status: Chronic Comment: WBC 12k in 11/2016, now 50 up to 63K with monocytic predominance. Serum cytology ordered. Dr Kumar recommends concervative management and no BM Bx for now as it likely wont change treatment plan, trending down currently (5) Normocytic anemia Code(s): D64.9 - ANEMIA, UNSPECIFIED Status: Acute Comment: Likely due to myelodysplastic process, transfuse 1u PRBC's today, repeat CBC in am - Plan plan discussed w/ family, continue antibiotics, PT/OT, out of bed/ambulate, DVT proph w/SCDs Stable overall -: Continue Vancomycin and Zosyn -: Start Florastor 250mg daily -: Imodium prn -: OOB/ambulate * AM lab: CBC * Likely home in 48h
[2017-02-09] MEDS ORDERED: Loperamide HCl 2 MG CAP PO PRN (19:03)
[2017-02-09] MEDS: Vancomycin HCl 750 MG in Sodium Chloride 0.9% 250 ML 250 ML IVPB SCH (21:33)
[2017-02-09] MEDS: Latanoprost 0.005% Ophth Soln 2.5 ml Bottle L EYE SCH (21:44)
[2017-02-10] MEDS: Sodium Chloride 0.9% 1,000 ML IV SCH ×2 (00:17→17:32)
[2017-02-10] MEDS: Piperacillin/Tazobactam 3.375 GM in Sodium Chloride 0.9% 100 ML IVPB SCH ×4 (03:47→20:51)
[2017-02-10] MEDS: Levothyroxine Sodium 75 MCG TAB PO SCH (05:49)
[2017-02-10] MEDS: HYDROcodone/Acetaminophen 7.5/325 mg Tablet PO PRN (06:20)
[2017-02-10 06:43] LABS: Band 2 % (5-11); Lymphocytes 16 % (21-51); MDiff Complete? YES; Mean Corpuscular HGB CONC 31.2 g/dL (32.0-36.0); Mean Corpuscular Hemoglobin 28.8 pg (27.0-31.0); Mean Corpuscular Volume 92.4 fl (81.0-99.0); Mean Platelet Volume 9.1 fL (7.4-10.4); Monocytes 26 % (0-10); Myelocyte 5 % (0-0); Neutrophil 50 % (42-75); PLT Morphology Comment Appears Adequate; Platelet Count 314 thou/uL (130-400); RBC Distribution Width 14.3 % (11.5-14.5); Red Blood Cell (RBC) Count 2.42 mill/uL (4.20-5.40); White Blood Cell (WBC) Count 27.5 thou/uL (4.8-10.8)
[2017-02-10] MEDS: Vancomycin HCl 750 MG in Sodium Chloride 0.9% 250 ML 250 ML IVPB SCH ×2 (08:19→20:51)
[2017-02-10] MEDS: Multivit, Therapeutic 1 TAB PO SCH (08:27)
[2017-02-10] MEDS: Saccharomyces boulardii 250 MG CAP PO SCH (08:28)
[2017-02-10] MEDS: Dorzolamide HCl 2% Ophth Soln 10 ml Bottle EA EYE SCH ×2 (08:31→21:07)
[2017-02-10] MEDS: Brimonidine Tartrate 0.2% Ophth Soln 5 ml Bottle EA EYE SCH ×2 (08:32→21:08)
[2017-02-10] MEDS: Timolol 0.5% Ophth Soln 5 ml Bottle EA EYE SCH ×2 (08:32→21:08)
[2017-02-10] MEDS: Docusate 100 MG CAP PO SCH ×2 (08:36→20:51)
--- NOTE | 2017-02-10 14:31 | PDOC.PN ---
- Subjective Encounter Start Date: 02/10/17 Encounter Start Time: 14:25 Subjective: f/u for R hip I&D POD #5 on Vanc/Zosyn with ? staph in aspirate. No new -: complaints. No fever. Still with some loose stool. - Objective MAR Reviewed: Yes Vital Signs & Weight: Vital Signs (12 hours) Temp Pulse Resp BP Pulse Ox 02/10/17 12:15 97.8 F 82 18 115/66 98 02/10/17 08:00 97.4 F L 90 16 148/67 H 99 Weight Weight 143 lb I&O: 02/09/17 02/10/17 02/11/17 06:59 06:59 06:59 Intake Total 1650 1290 Balance 1650 1290 Result Diagrams: 02/10/17 04:20 02/09/17 05:52 Phys Exam - Physical Examination Constitutional: NAD HEENT: PERRLA, oral pharynx no lesions Neck: no JVD, supple Respiratory: no wheezing, clear to auscultation bilateral Cardiovascular: RRR Gastrointestinal: soft, non-tender, no distention, positive bowel sounds Minimal edema of R hip region Musculoskeletal: pulses present Neurological: normal sensation, moves all 4 limbs Psychiatric: A&O x 3 Skin: normal turgor, cap refill <2 seconds Dx/Plan (1) Septic hip Code(s): M00.9 - PYOGENIC ARTHRITIS, UNSPECIFIED Status: Acute Comment: s/p I&D POD #5, local care, IV Vancomycin and Zosyn, hold Vancomycin and repeat Vanc level due to elevated value (2) Status post incision and drainage Code(s): Z98.890 - OTHER SPECIFIED POSTPROCEDURAL STATES Status: Acute Comment: see above #1 (3) Hypothyroidism Code(s): E03.9 - HYPOTHYROIDISM, UNSPECIFIED Status: Chronic Qualifiers: Hypothyroidism type: acquired Qualified Code(s): E03.9 - Hypothyroidism, unspecified Comment: Continue Levothyroxine (4) Myelodysplasia (myelodysplastic syndrome) Code(s): D46.9 - MYELODYSPLASTIC SYNDROME, UNSPECIFIED Status: Chronic Comment: WBC 12k in 11/2016, now 50 up to 63K with monocytic predominance. Serum cytology ordered. Dr Linton recommends concervative management and no Bx for now as it likely wont change treatment plan, trending down currently (5) Normocytic anemia Code(s): D64.9 - ANEMIA, UNSPECIFIED Status: Acute Comment: Likely due to myelodysplastic process, transfuse 1u PRBC's today, repeat CBC in am - Plan plan discussed w/ family, continue antibiotics, out of bed/ambulate, DVT proph w /SCDs stable overall -: OOB/ambulate with PT -: Continue Vancomycin and Zosyn with likely d/c Zosyn in 24h -: Continue Florastor 250mg daily -: AM lab: BMP, CBC * Likely home in am
[2017-02-10] MEDS: Latanoprost 0.005% Ophth Soln 2.5 ml Bottle L EYE SCH (21:07)
[2017-02-10] MEDS: Calcium Carbonate 500 MG ChewTAB PO PRN (23:58)
[2017-02-11] MEDS: Piperacillin/Tazobactam 3.375 GM in Sodium Chloride 0.9% 100 ML IVPB SCH ×4 (04:43→20:33)
[2017-02-11] MEDS: Levothyroxine Sodium 75 MCG TAB PO SCH (05:40)
[2017-02-11 06:38] LABS: Hemoglobin 7.8 g/dL (12.0-16.0); Mean Corpuscular HGB CONC 31.1 g/dL (32.0-36.0); Mean Corpuscular Hemoglobin 28.8 pg (27.0-31.0); Mean Corpuscular Volume 92.5 fl (81.0-99.0); Mean Platelet Volume 8.9 fL (7.4-10.4); Platelet Count 374 thou/uL (130-400); RBC Distribution Width 14.4 % (11.5-14.5); Red Blood Cell (RBC) Count 2.69 mill/uL (4.20-5.40); White Blood Cell (WBC) Count 33.9 thou/uL (4.8-10.8)
[2017-02-11 06:39] LABS: Band 5 % (5-11); Eosinophils 2 % (0-10); Large Platelets SLIGHT; Lymphocytes 11 % (21-51); MDiff Complete? YES; Metamyelocyte 1 % (0-0); Monocytes 44 % (0-10); Myelocyte 2 % (0-0); Neutrophil 34 % (42-75)
[2017-02-11 06:40] LABS: Vancomycin, Trough 36.7 ug/mL
[2017-02-11] MEDS ORDERED: VANCOMYCIN IVPB PRN (07:09)
[2017-02-11] MEDS: Saccharomyces boulardii 250 MG CAP PO SCH (07:35)
[2017-02-11] MEDS: Docusate 100 MG CAP PO SCH ×2 (07:35→20:31)
[2017-02-11] MEDS: Calcium Carbonate 500 MG ChewTAB PO PRN (07:35)
[2017-02-11] MEDS: Multivit, Therapeutic 1 TAB PO SCH (07:36)
[2017-02-11] MEDS: Timolol 0.5% Ophth Soln 5 ml Bottle EA EYE SCH ×2 (07:41→20:33)
[2017-02-11] MEDS: Dorzolamide HCl 2% Ophth Soln 10 ml Bottle EA EYE SCH ×2 (07:41→20:34)
[2017-02-11] MEDS: Brimonidine Tartrate 0.2% Ophth Soln 5 ml Bottle EA EYE SCH ×2 (07:42→20:34)
[2017-02-11] MEDS: Ondansetron HCl/PF 4 MG/2 ML Vial IVP PRN (08:19)
--- NOTE | 2017-02-11 10:40 | PRG ---
DATE OF SERVICE: 02/11/2017 ORTHOPEDIC PROGRESS NOTE SUBJECTIVE: Ms. Alcazar complains of abdominal pain. She is now approximately 6 days postop from he r open arthrotomy of the hip, which provided her with significant relief. First culture did not demo nstrate any bacteria and her second culture did demonstrate some coag negative Staph, but in the nutr ient broth only. Question of whether or not this is a contaminant. She is doing much better other t bello the ileus that she developed. She does complain bitterly of abdominal pain. Her white count has been trending down, now 33.9. Vital signs have remained stable, afebrile. The last 24 hours is 98. 4. Blood pressure is also stable. OBJECTIVE: VITAL SIGNS: Temperature 98.4, pulse is 89, blood pressure 124/61, respiratory rate 16, O2 saturatio n on room air is 94%. GENERAL: She is alert and oriented to person, place, time, and situation, and appropriate with the e xaminer. ABDOMEN: Distended, tympanitic to percussion is also noted. Bowel sounds are audible, but sounds ar e consistent with ileus. Discomfort is noted with palpation along the anterior abdomen, which is dis tended. ASSESSMENT: 1. An 86-year-old white female postoperative day #6 from a right hip open arthrotomy. 2. Leukocytosis probably unrelated to her hip. 3. Laboratory finding of coag negative Staph in one culture from the hip at approximately 5 days. S uspect a contaminant, because clinically the patient is improving. PLAN: 1. N.p.o. now except for ice chips. 2. Consult walking program to amplify the amount of time. The patient is out of bed, hopefully we w ill get her ileus to pass, if not, place an NG-tube. 3. Hold transfer to skilled today.
[2017-02-11] MEDS ORDERED: Vancomycin HCl 750 MG in Sodium Chloride 0.9% 250 ML 250 ML IVPB SCH (12:15)
--- NOTE | 2017-02-11 14:56 | PDOC.PN ---
- Subjective Encounter Start Date: 02/11/17 Encounter Start Time: 14:50 Subjective: f/u for R septic hip s/p I&D with coag neg Staph on Vancomycin. -: Vanc level elevated this am and Vanc on hold. c/o N/V and concern for ileus -: with KUB pending. + BM's. - Objective MAR Reviewed: Yes Vital Signs & Weight: Vital Signs (12 hours) Temp Pulse Resp BP Pulse Ox 02/11/17 12:00 97.4 F L 92 16 119/68 90 L 02/11/17 08:00 97.8 F 95 14 145/82 H 94 L 02/11/17 07:41 89 02/11/17 03:55 98.4 F 89 16 128/66 98 Weight Admit Weight 143 lb Weight 143 lb I&O: 02/10/17 02/11/17 02/12/17 06:59 06:59 06:59 Intake Total 1290 Balance 1290 Result Diagrams: 02/11/17 05:03 02/09/17 05:52 Additional Labs: Laboratory Tests 02/06/17 02/07/17 02/11/17 03:44 20:05 05:03 Vancomycin Trough 7.9 27.5 36.7 H* Phys Exam - Physical Examination Constitutional: NAD HEENT: PERRLA, oral pharynx no lesions Neck: no JVD, supple Cardiovascular: RRR R hip with edema Musculoskeletal: pulses present, edema present Neurological: normal sensation, moves all 4 limbs Psychiatric: A&O x 3 Skin: normal turgor, cap refill <2 seconds Dx/Plan (1) Septic hip Code(s): M00.9 - PYOGENIC ARTHRITIS, UNSPECIFIED Status: Acute Comment: s/p I&D POD #6, local care, IV Vancomycin and Zosyn, hold Vancomycin and repeat Vanc level due to elevated value, hold Vancomycin 24h (2) Status post incision and drainage Code(s): Z98.890 - OTHER SPECIFIED POSTPROCEDURAL STATES Status: Acute Comment: see above #1 (3) Hypothyroidism Code(s): E03.9 - HYPOTHYROIDISM, UNSPECIFIED Status: Chronic Qualifiers: Hypothyroidism type: acquired Qualified Code(s): E03.9 - Hypothyroidism, unspecified Comment: Continue Levothyroxine (4) Myelodysplasia (myelodysplastic syndrome) Code(s): D46.9 - MYELODYSPLASTIC SYNDROME, UNSPECIFIED Status: Chronic Comment: WBC 12k in 11/2016, now 50 up to 63K with monocytic predominance. Serum cytology ordered. Dr Linton recommends concervative management and no Bx for now as it likely wont change treatment plan (5) Normocytic anemia Code(s): D64.9 - ANEMIA, UNSPECIFIED Status: Acute Comment: Likely due to myelodysplastic process, transfuse 1u PRBC's today, repeat CBC in am - Plan PT/OT, out of bed/ambulate, DVT proph w/SCDs D/C Vancomycin -: KUB pending -: NPO currently -: Continue Zosyn 3.375gm IV q6h -: Continue Florastor 250mg daily * AM lab: BMP, CBC
[2017-02-11] MEDS: Sodium Chloride 0.9% 1,000 ML IV SCH (16:34)
--- NOTE | 2017-02-11 18:20 | RAD ---
ABDOMEN TWO VIEWS CHEST ONE VIEW: Comparison: None. History: Ileus. FINDINGS: Supine and upright views of the abdomen and upright view of the chest shows a nonspecific, nonobstruc vladimir bowel gas pattern. There is air in the colon. A few air filled loops of small bowel are seen in t he lower abdomen. No free air is seen on the upright examination. A few air fluid levels are seen on the upright examination. The cardiomediastinal silhouette is normal in size. There is no evidence of consolidation, mass or pl eural effusion. IMPRESSION: Dilated loops of small bowel. A nonobstructed pattern is seen, but an ileus or partial small bowel ob struction may be a possibility. POS: ANNAMARIA
[2017-02-11] MEDS: Latanoprost 0.005% Ophth Soln 2.5 ml Bottle L EYE SCH (20:35)
[2017-02-12] MEDS: Piperacillin/Tazobactam 3.375 GM in Sodium Chloride 0.9% 100 ML IVPB SCH (02:58)
[2017-02-12] MEDS: Levothyroxine Sodium 75 MCG TAB PO SCH (06:21)
--- NOTE | 2017-02-12 07:38 | PDOC.PN ---
- Subjective Encounter Start Date: 02/12/17 Encounter Start Time: 07:25 Subjective: f/u for R hip septic arthritis s/p I&D with coag neg staph. Currently on -: Vancomycin. Developed ileus 02/11/17 but improved with limited po intake. -: + BM's per pt report. No obstruction noted on KUB. - Objective MAR Reviewed: Yes Vital Signs & Weight: Vital Signs (12 hours) Temp Pulse Resp BP Pulse Ox 02/12/17 04:00 98 F 65 16 129/95 H 95 02/11/17 23:49 98.6 F 104 H 14 145/61 H 96 02/11/17 20:33 99 02/11/17 20:00 98.5 F 99 18 104/57 L 96 Weight Admit Weight 143 lb Weight 143 lb I&O: 02/11/17 02/12/17 02/13/17 06:59 06:59 06:59 Intake Total 1550 Output Total 400 Balance 1150 Result Diagrams: 02/12/17 07:08 02/12/17 07:08 Additional Labs: Microbiology 02/04/17 20:11 Hip - Right Bacterial Culture - Preliminary 02/04/17 20:11 Hip - Right Anaerobic Culture - Preliminary NO ANAEROBES ISOLATED IN 3 DAYS 02/04/17 20:11 Hip - Right Bacterial Culture - Preliminary 02/04/17 20:11 Hip - Right Anaerobic Culture - Preliminary Coagulase Neg Staphylococcus NO ANAEROBES ISOLATED IN 4 DAYS 02/04/17 20:09 Hip - Right Bacterial Culture - Preliminary 02/04/17 20:09 Hip - Right Anaerobic Culture - Preliminary NO ANAEROBES ISOLATED IN 3 DAYS 02/04/17 17:08 Venous blood - Left Hand Blood Culture - Preliminary NO GROWTH AT 48 HOURS 02/04/17 16:59 Venous blood - Left Arm Blood Culture - Preliminary NO GROWTH AT 48 HOURS Laboratory Tests 02/04/17 02/04/17 02/05/17 17:00 17:00 03:28 WBC 50.0 H* 63.5 H* Hgb 9.7 L 8.9 L Neutrophils % (Manual) Sodium 129 L Potassium Creatinine TSH 3rd Generation Vancomycin Trough Rheumatoid Factor ESTEFANIA Screen 02/05/17 02/05/17 02/06/17 16:48 16:48 03:44 WBC Hgb Neutrophils % (Manual) Sodium Potassium Creatinine TSH 3rd Generation Vancomycin Trough 7.9 Rheumatoid Factor Negative ESTEFANIA Screen Negative 02/06/17 02/06/17 02/07/17 06:00 06:00 05:16 WBC 63.1 H* Hgb 6.9 L Neutrophils % (Manual) Sodium 130 L Potassium 3.4 L Creatinine TSH 3rd Generation Vancomycin Trough Rheumatoid Factor ESTEFANIA Screen 02/07/17 02/07/17 02/07/17 05:16 05:16 20:05 WBC 40.2 H* Hgb 6.7 L Neutrophils % (Manual) Sodium Potassium Creatinine TSH 3rd Generation 0.6581 Vancomycin Trough 27.5 Rheumatoid Factor ESTEFANIA Screen 02/08/17 02/09/17 02/09/17 05:00 05:52 05:52 WBC 32.3 H Hgb 6.0 L Neutrophils % (Manual) 39 L 31 L Sodium Potassium 3.5 Creatinine 1.16 H TSH 3rd Generation Vancomycin Trough Rheumatoid Factor ESTEFANIA Screen 02/10/17 02/11/17 02/11/17 04:20 05:03 05:03 WBC 27.5 H 33.9 H Hgb 7.0 L 7.8 L Neutrophils % (Manual) Sodium Potassium Creatinine TSH 3rd Generation Vancomycin Trough 36.7 H* Rheumatoid Factor ESTEFANIA Screen 02/12/17 07:08 WBC Hgb Neutrophils % (Manual) Sodium Potassium Creatinine TSH 3rd Generation Vancomycin Trough 24.1 Rheumatoid Factor ESTEFANIA Screen Radiology Reviewed by me: Yes (KUB - no obstruction noted, likely ileus) Phys Exam - Physical Examination Constitutional: NAD HEENT: PERRLA, oral pharynx no lesions Neck: no JVD, supple Respiratory: no wheezing, clear to auscultation bilateral Cardiovascular: RRR mild distention Gastrointestinal: soft, non-tender, positive bowel sounds R hip edema noted Musculoskeletal: pulses present Neurological: normal sensation, moves all 4 limbs Psychiatric: A&O x 3 Skin: normal turgor, cap refill <2 seconds Dx/Plan (1) Ileus Code(s): K56.7 - ILEUS, UNSPECIFIED Status: Acute Comment: KUB negative for overt obstruction, + BM's currently and no emesis, clear liquids and monitor response, consider surgical evaluation if clinically decompensating, increase ambulation (2) Septic hip Code(s): M00.9 - PYOGENIC ARTHRITIS, UNSPECIFIED Status: Acute Comment: s/p I&D POD #7, local care, IV Vancomycin and Zosyn, hold Vancomycin and repeat Vanc level due to elevated value, hold Vancomycin 24h (3) Status post incision and drainage Code(s): Z98.890 - OTHER SPECIFIED POSTPROCEDURAL STATES Status: Acute Comment: see above #1 (4) Hypothyroidism Code(s): E03.9 - HYPOTHYROIDISM, UNSPECIFIED Status: Chronic Qualifiers: Hypothyroidism type: acquired Qualified Code(s): E03.9 - Hypothyroidism, unspecified Comment: Continue Levothyroxine (5) Myelodysplasia (myelodysplastic syndrome) Code(s): D46.9 - MYELODYSPLASTIC SYNDROME, UNSPECIFIED Status: Chronic Comment: WBC 12k in 11/2016, now 50 up to 63K with monocytic predominance. Serum cytology ordered. 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
[2017-02-12] MEDS: Brimonidine Tartrate 0.2% Ophth Soln 5 ml Bottle EA EYE SCH ×2 (08:07→22:04)
[2017-02-12 08:11] LABS: Hemoglobin 7.6 g/dL (12.0-16.0); Mean Corpuscular HGB CONC 30.4 g/dL (32.0-36.0); Mean Corpuscular Hemoglobin 28.4 pg (27.0-31.0); Mean Corpuscular Volume 93.3 fl (81.0-99.0); Mean Platelet Volume 8.8 fL (7.4-10.4); Platelet Count 401 thou/uL (130-400); RBC Distribution Width 14.8 % (11.5-14.5); Red Blood Cell (RBC) Count 2.69 mill/uL (4.20-5.40); White Blood Cell (WBC) Count 45.9 thou/uL (4.8-10.8)
[2017-02-12] MEDS: Timolol 0.5% Ophth Soln 5 ml Bottle EA EYE SCH ×2 (08:13→22:05)
[2017-02-12] MEDS: Dorzolamide HCl 2% Ophth Soln 10 ml Bottle EA EYE SCH ×2 (08:13→22:04)
[2017-02-12 08:14] LABS: Vancomycin, Trough 24.1 ug/mL
[2017-02-12] MEDS: Saccharomyces boulardii 250 MG CAP PO SCH (08:14)
[2017-02-12] MEDS: Multivit, Therapeutic 1 TAB PO SCH (08:14)
[2017-02-12] MEDS: Docusate 100 MG CAP PO SCH ×2 (08:14→22:06)
[2017-02-12 08:17] LABS: Anion Gap 15 mmol/L (10-20); BUN (Urea Nitrogen) 27 mg/dL (9.8-20.1); Calc. Creatinine Clearance 24 mL/min (70-130); Calcium 8.9 mg/dL (7.8-10.44); Carbon Dioxide 24 mmol/L (23-31); Chloride 102 mmol/L (98-107); Estimated GFR-MDRD 28; Glucose 88 mg/dL (83-110); Potassium 3.3 mmol/L (3.5-5.1); Sodium 138 mmol/L (136-145)
[2017-02-12 09:00] LABS: Band 16 % (5-11); Hypochromia SLIGHT = 6-15 cells (100X) (0-5/hpf); Lymphocytes 8 % (21-51); MDiff Complete? YES; Metamyelocyte 3 % (0-0); Monocytes 29 % (0-10); Myelocyte 7 % (0-0); Neutrophil 36 % (42-75); PLT Morphology Comment Appears Increased; Polychromasia MODERATE = 3-4 cells (100X) (0-2/hpf); Reactive Lymphocytes 1 % (0-10); Toxic Granulation SLIGHT
[2017-02-12] MEDS ORDERED: Cephalexin 250 MG CAP PO SCH (12:00)
[2017-02-12] MEDS: Sodium Chloride 0.9% 1,000 ML IV SCH ×2 (12:19→23:08)
--- NOTE | 2017-02-12 13:23 | MRI ---
MRI OF THE RIGHT HIP WITHOUT IV CONTRAST: INDICATION: History of right hip septic arthritis status post I&D. COMPARISON: None. TECHNIQUE: Multiplanar multisequence MR images were obtained of the right hip without IV contrast due to diminis hed GFR. FINDINGS: There is a heterogeneous fluid collection seen within the musculature of the right gluteus medias mus culature. The collection measures approximately 9.5 x 7.6 x 11.2 cm and suspicious for a large intra muscular abscess. There is also a fluid collection overlying the right greater trochanter suspicious for bursitis measuring 4.4 cm. There is abnormal fluid signal intensity within the right gluteal mu sculature as well as the right hip adductor musculature. There is a high-grade partial-thickness tear of the right gluteus minimus at the insertion. There is mild joint capsular distention within the right hip joint. There are moderate degenerative changes of the right hip joint with degenerative fraying of the acetabular labrum. No iliopsoas bursitis is evident. Rectus femoris and hamstring origins appear within normal limits. There is moderate free fluid in the pelvis. IMPRESSION: 1. Large multiloculated intramuscular abscess suspected within the right gluteus medias measuring 9. 5 x 7.5 x 11.9 cm. 2. Septic trochanteric bursitis overlying the right hip. 3. High-grade partial-thickness tear of the right gluteus minimus muscle. 4. Edema within the right gluteal musculature as well as within the right hip adductor musculature i s suspicious for myositis. 5. Extensive edema within the subcutaneous tissues overlying the right hip and right lower quadrant of the abdomen. 6. Moderate free fluid within the pelvis. 7. Moderate degenerative changes of the right hip joint with degenerative fraying of the acetabular labrum. POS: BRUNILDA
[2017-02-12] MEDS ORDERED: Piperacillin/Tazobactam 2.25 GM in Sodium Chloride 0.9% 100 ML IVPB SCH (14:00)
[2017-02-12] MEDS: Latanoprost 0.005% Ophth Soln 2.5 ml Bottle L EYE SCH (22:03)
[2017-02-12] MEDS: HYDROcodone/Acetaminophen 7.5/325 mg Tablet PO PRN (23:05)
[2017-02-13 05:48] LABS: Anion Gap 10 mmol/L (10-20); BUN (Urea Nitrogen) 28 mg/dL (9.8-20.1); Calc. Creatinine Clearance 25 mL/min (70-130); Calcium 8.6 mg/dL (7.8-10.44); Carbon Dioxide 25 mmol/L (23-31); Chloride 103 mmol/L (98-107); Estimated GFR-MDRD 30; Glucose 103 mg/dL (83-110); Potassium 3.1 mmol/L (3.5-5.1); Sodium 135 mmol/L (136-145)
[2017-02-13] MEDS: Sodium Chloride 0.9% 1,000 ML IV SCH ×2 (05:59→19:58)
[2017-02-13 06:01] LABS: Band 12 % (5-11); Eosinophils 1 % (0-10); Hemoglobin 7.1 g/dL (12.0-16.0); Lymphocytes 9 % (21-51); MDiff Complete? YES; Mean Corpuscular HGB CONC 31.1 g/dL (32.0-36.0); Mean Corpuscular Hemoglobin 28.8 pg (27.0-31.0); Mean Corpuscular Volume 92.8 fl (81.0-99.0); Metamyelocyte 4 % (0-0); Monocytes 21 % (0-10); Myelocyte 9 % (0-0); Neutrophil 44 % (42-75); Platelet Count 357 thou/uL (130-400); Red Blood Cell (RBC) Count 2.45 mill/uL (4.20-5.40); White Blood Cell (WBC) Count 36.1 thou/uL (4.8-10.8)
[2017-02-13] MEDS: Levothyroxine Sodium 75 MCG TAB PO SCH (06:33)
--- NOTE | 2017-02-13 10:28 | PDOC.PN ---
- Subjective Encounter Start Date: 02/13/17 Encounter Start Time: 10:15 Subjective: FEELING BETTER TODAY, SOME PAIN FROM WALKING WITH PT - Objective MAR Reviewed: Yes Vital Signs & Weight: Vital Signs (12 hours) Temp Pulse Resp BP Pulse Ox 02/13/17 07:20 97.5 F L 82 16 122/64 91 L 02/13/17 04:30 97.4 F L 79 16 107/63 91 L 02/13/17 00:15 98.7 F 87 16 122/57 L 93 L Weight Admit Weight 143 lb Weight 143 lb I&O: 02/12/17 02/13/17 02/14/17 06:59 06:59 06:59 Intake Total 1550 2240 Output Total 400 0 Balance 1150 2240 Result Diagrams: 02/13/17 04:35 02/13/17 04:35 Phys Exam - Physical Examination Constitutional: NAD HEENT: PERRLA, moist MMs, sclera anicteric Neck: supple, full ROM Respiratory: no wheezing, no rhonchi, clear to auscultation bilateral Cardiovascular: RRR TESFAYE Gastrointestinal: soft, non-tender, positive bowel sounds Musculoskeletal: no edema Neurological: non-focal, moves all 4 limbs Psychiatric: normal affect, A&O x 3 Skin: no rash Dx/Plan (1) Arthritis of right hip Code(s): M16.11 - UNILATERAL PRIMARY OSTEOARTHRITIS, RIGHT HIP Status: Acute Comment: s/p I&D, bacterial culture neg so far. No path, cyto, tissue. pt feels markedly better. suspect noninfectious, RF neg, ESTEFANIA and ANCA pending. no AFB or fungal cultures or smears. hold abx fo rnow. no other effusions or pain at present. ESR 70s and CRP 15+ (2) Ileus Code(s): K56.7 - ILEUS, UNSPECIFIED Status: Acute Comment: KUB negative for overt obstruction, + BM's currently and no emesis, clear liquids and monitor response, consider surgical evaluation if clinically decompensating, increase ambulation (3) Normocytic anemia Code(s): D64.9 - ANEMIA, UNSPECIFIED Status: Acute Comment: Likely due to myelodysplastic process, transfuse 1u PRBC's today, repeat CBC in am (4) Right hip joint effusion Code(s): M25.451 - EFFUSION, RIGHT HIP Status: Acute Comment: drained (5) Septic hip Code(s): M00.9 - PYOGENIC ARTHRITIS, UNSPECIFIED Status: Acute Comment: s/p I&D POD #7, local care, IV Vancomycin and Zosyn, hold Vancomycin and repeat Vanc level due to elevated value, hold Vancomycin 24h (6) Status post incision and drainage Code(s): Z98.890 - OTHER SPECIFIED POSTPROCEDURAL STATES Status: Acute Comment: see above #1 (7) Hypothyroidism Code(s): E03.9 - HYPOTHYROIDISM, UNSPECIFIED Status: Chronic Qualifiers: Hypothyroidism type: acquired Qualified Code(s): E03.9 - Hypothyroidism, unspecified Comment: Continue Levothyroxine (8) Myelodysplasia (myelodysplastic syndrome) Code(s): D46.9 - MYELODYSPLASTIC SYNDROME, UNSPECIFIED Status: Chronic Comment: WBC 12k in 11/2016, now 50 up to 63K with monocytic predominance. Serum cytology ordered. Dr Linton recommends conservative management and no Bx for now as it likely wont change treatment plan, follow trend - Plan cont current plan of care, continue antibiotics, PT/OT APPROVED FOR SNF ONCE RELEASED BY ORTHO. D/C ON KEFLEX -: MDS PER ONCOLOGY ONCE D/C * .
[2017-02-13] MEDS: Docusate 100 MG CAP PO SCH ×2 (10:49→21:50)
[2017-02-13] MEDS: Multivit, Therapeutic 1 TAB PO SCH (10:49)
[2017-02-13] MEDS: Saccharomyces boulardii 250 MG CAP PO SCH (10:49)
[2017-02-13] MEDS: Timolol 0.5% Ophth Soln 5 ml Bottle EA EYE SCH ×2 (10:50→21:50)
[2017-02-13] MEDS: Dorzolamide HCl 2% Ophth Soln 10 ml Bottle EA EYE SCH ×2 (10:50→21:49)
[2017-02-13] MEDS: Brimonidine Tartrate 0.2% Ophth Soln 5 ml Bottle EA EYE SCH ×2 (10:50→21:48)
[2017-02-13] MEDS: Latanoprost 0.005% Ophth Soln 2.5 ml Bottle L EYE SCH (21:49)
[2017-02-14] MEDS: Sodium Chloride 0.9% 1,000 ML IV SCH ×2 (02:13→11:49)
[2017-02-14] MEDS: Levothyroxine Sodium 75 MCG TAB PO SCH (06:05)
[2017-02-14 06:17] LABS: Anion Gap 11 mmol/L (10-20); BUN (Urea Nitrogen) 24 mg/dL (9.8-20.1); Band 6 % (5-11); Calc. Creatinine Clearance 30 mL/min (70-130); Calcium 8.9 mg/dL (7.8-10.44); Carbon Dioxide 27 mmol/L (23-31); Chloride 102 mmol/L (98-107); Eosinophils 2 % (0-10); Estimated GFR-MDRD 37; Glucose 102 mg/dL (83-110); Hemoglobin 7.8 g/dL (12.0-16.0); Lymphocytes 9 % (21-51); MDiff Complete? YES; Mean Corpuscular HGB CONC 31.2 g/dL (32.0-36.0); Mean Corpuscular Hemoglobin 28.8 pg (27.0-31.0); Mean Corpuscular Volume 92.2 fl (81.0-99.0); Mean Platelet Volume 8.5 fL (7.4-10.4); Metamyelocyte 4 % (0-0); Monocytes 24 % (0-10); Myelocyte 2 % (0-0); Neutrophil 53 % (42-75); PLT Morphology Comment Appears Adequate; Platelet Count 367 thou/uL (130-400); Potassium 3.1 mmol/L (3.5-5.1); RBC Distribution Width 14.7 % (11.5-14.5); Red Blood Cell (RBC) Count 2.73 mill/uL (4.20-5.40); Sodium 137 mmol/L (136-145); White Blood Cell (WBC) Count 40.8 thou/uL (4.8-10.8)
[2017-02-14] MEDS: HYDROcodone/Acetaminophen 7.5/325 mg Tablet PO PRN (06:36)
[2017-02-14] MEDS: Docusate 100 MG CAP PO SCH ×2 (09:00→22:35)
[2017-02-14] MEDS: Saccharomyces boulardii 250 MG CAP PO SCH (09:00)
[2017-02-14] MEDS: Multivit, Therapeutic 1 TAB PO SCH (09:00)
[2017-02-14] MEDS: Brimonidine Tartrate 0.2% Ophth Soln 5 ml Bottle EA EYE SCH ×2 (09:00→22:35)
[2017-02-14] MEDS: Dorzolamide HCl 2% Ophth Soln 10 ml Bottle EA EYE SCH ×2 (09:01→22:43)
[2017-02-14] MEDS: Timolol 0.5% Ophth Soln 5 ml Bottle EA EYE SCH ×2 (09:02→22:37)
[2017-02-14] MEDS ORDERED: Potassium Chloride 20 MEQ TAB PO SCH (12:00)
--- NOTE | 2017-02-14 19:32 | PDOC.PN ---
- Subjective Encounter Start Date: 02/14/17 Encounter Start Time: 11:50 Subjective: no new complaints - Objective MAR Reviewed: Yes Vital Signs & Weight: Vital Signs (12 hours) Temp Pulse Resp BP BP Pulse Ox 02/14/17 16:00 98.0 F 85 18 147/67 H 93 L 02/14/17 12:00 98.0 F 97 14 157/78 H 94 L 02/14/17 09:02 95 151/71 H 02/14/17 08:53 98.0 F 97 14 98 02/14/17 08:00 98.0 F 95 16 151/71 H 90 L Weight Admit Weight 143 lb Weight 143 lb I&O: 02/13/17 02/14/17 02/15/17 06:59 06:59 06:59 Intake Total 2240 1500 960 Output Total 0 Balance 2240 1500 960 Result Diagrams: 02/14/17 05:30 02/14/17 05:30 Phys Exam - Physical Examination Constitutional: NAD HEENT: PERRLA, moist MMs, sclera anicteric Neck: supple, full ROM Respiratory: no rhonchi, clear to auscultation bilateral Cardiovascular: RRR Gastrointestinal: soft, non-tender, positive bowel sounds Musculoskeletal: no edema Neurological: non-focal, moves all 4 limbs Psychiatric: normal affect, A&O x 3 Skin: no rash Dx/Plan (1) Arthritis of right hip Code(s): M16.11 - UNILATERAL PRIMARY OSTEOARTHRITIS, RIGHT HIP Status: Acute Comment: s/p I&D, bacterial culture neg so far. No path, cyto, tissue. pt feels markedly better. suspect noninfectious, RF neg, ESTEFANIA and ANCA pending. no AFB or fungal cultures or smears. hold abx fo rnow. no other effusions or pain at present. ESR 70s and CRP 15+ (2) Ileus Code(s): K56.7 - ILEUS, UNSPECIFIED Status: Acute Comment: KUB negative for overt obstruction, + BM's currently and no emesis, clear liquids and monitor response, consider surgical evaluation if clinically decompensating, increase ambulation (3) Normocytic anemia Code(s): D64.9 - ANEMIA, UNSPECIFIED Status: Acute Comment: Likely due to myelodysplastic process, transfuse 1u PRBC's today, repeat CBC in am (4) Right hip joint effusion Code(s): M25.451 - EFFUSION, RIGHT HIP Status: Acute Comment: drained (5) Septic hip Code(s): M00.9 - PYOGENIC ARTHRITIS, UNSPECIFIED Status: Acute Comment: s/p I&D POD #7, local care, IV Vancomycin and Zosyn, hold Vancomycin and repeat Vanc level due to elevated value, hold Vancomycin 24h (6) Status post incision and drainage Code(s): Z98.890 - OTHER SPECIFIED POSTPROCEDURAL STATES Status: Acute Comment: see above #1 (7) Hypothyroidism Code(s): E03.9 - HYPOTHYROIDISM, UNSPECIFIED Status: Chronic Qualifiers: Hypothyroidism type: acquired Qualified Code(s): E03.9 - Hypothyroidism, unspecified Comment: Continue Levothyroxine (8) Myelodysplasia (myelodysplastic syndrome) Code(s): D46.9 - MYELODYSPLASTIC SYNDROME, UNSPECIFIED Status: Chronic Comment: WBC 12k in 11/2016, now 50 up to 63K with monocytic predominance. Serum cytology ordered. Dr Linton recommends conservative management and no Bx for now as it likely wont change treatment plan, follow trend - Plan cont current plan of care, PT/OT To rehab per primary service * .
[2017-02-14] MEDS: Ondansetron HCl/PF 4 MG/2 ML Vial IVP PRN (22:34)
[2017-02-14] MEDS: Latanoprost 0.005% Ophth Soln 2.5 ml Bottle L EYE SCH (22:36)
[2017-02-15] MEDS: Sodium Chloride 0.9% 1,000 ML IV SCH ×3 (00:10→22:15)
[2017-02-15] MEDS: Ondansetron HCl/PF 4 MG/2 ML Vial IVP PRN (04:37)
[2017-02-15] MEDS: Docusate 100 MG CAP PO SCH ×2 (04:46→09:08)
[2017-02-15 05:45] LABS: Anion Gap 15 mmol/L (10-20); BUN (Urea Nitrogen) 21 mg/dL (9.8-20.1); Calc. Creatinine Clearance 31 mL/min (70-130); Calcium 8.8 mg/dL (7.8-10.44); Carbon Dioxide 25 mmol/L (23-31); Chloride 102 mmol/L (98-107); Estimated GFR-MDRD 38; Glucose 104 mg/dL (83-110); Potassium 3.7 mmol/L (3.5-5.1); Sodium 138 mmol/L (136-145)
[2017-02-15] MEDS: Levothyroxine Sodium 75 MCG TAB PO SCH (06:14)
[2017-02-15 06:15] LABS: Band 19 % (5-11); Eosinophils 2 % (0-10); Hemoglobin 8.7 g/dL (12.0-16.0); Lymphocytes 5 % (21-51); MDiff Complete? YES; Mean Corpuscular HGB CONC 31.6 g/dL (32.0-36.0); Mean Corpuscular Hemoglobin 28.8 pg (27.0-31.0); Mean Corpuscular Volume 91.1 fl (81.0-99.0); Mean Platelet Volume 9.3 fL (7.4-10.4); Metamyelocyte 4 % (0-0); Monocytes 26 % (0-10); Neutrophil 43 % (42-75); PLT Morphology Comment Appears Adequate; Platelet Count 380 thou/uL (130-400); RBC Distribution Width 15.2 % (11.5-14.5); RBC Morphology Normal; Reactive Lymphocytes 1 % (0-10); White Blood Cell (WBC) Count 52.8 thou/uL (4.8-10.8)
[2017-02-15] MEDS ORDERED: Potassium Chloride 20 MEQ TAB PO SCH (08:00)
[2017-02-15] MEDS: Dorzolamide HCl 2% Ophth Soln 10 ml Bottle EA EYE SCH ×2 (09:04→22:02)
[2017-02-15] MEDS: Timolol 0.5% Ophth Soln 5 ml Bottle EA EYE SCH ×2 (09:04→22:01)
[2017-02-15] MEDS: Brimonidine Tartrate 0.2% Ophth Soln 5 ml Bottle EA EYE SCH ×2 (09:05→22:00)
[2017-02-15] MEDS: Multivit, Therapeutic 1 TAB PO SCH (09:08)
[2017-02-15] MEDS: Saccharomyces boulardii 250 MG CAP PO SCH (09:09)
--- NOTE | 2017-02-15 10:08 | RAD ---
FRONTAL VIEW ABDOMEN: Indication: Nausea, vomiting. Two views provided. FINDINGS: There is an abnormal area of distention of small bowel in the lower abdomen and pelvis. The upper abd omen is not imaged for comment. There is osseous degenerative change. Scattered calcifications are pr esent. IMPRESSION: Abnormal dilatation of the small bowel may relate to bowel obstruction versus ileus. Recommend dedica vladimir imaging follow up for further assessment. POS: [facility]
--- NOTE | 2017-02-15 10:53 | PDOC.PN ---
- Subjective Encounter Start Date: 02/15/17 Encounter Start Time: 10:53 Subjective: pleasant but with nausea - Objective MAR Reviewed: Yes Vital Signs & Weight: Vital Signs (12 hours) Temp Pulse Resp BP Pulse Ox 02/15/17 09:04 104 H 02/15/17 08:13 98.0 F 104 H 15 175/71 H 96 02/15/17 08:00 98.0 F 104 H 15 02/15/17 04:27 98.0 F 101 H 20 171/72 H 92 L 02/15/17 00:01 98.1 F 100 18 122/62 90 L Weight Admit Weight 143 lb Weight 143 lb I&O: 02/14/17 02/15/17 02/16/17 06:59 06:59 06:59 Intake Total 1500 1460 Balance 1500 1460 Result Diagrams: 02/15/17 05:03 02/15/17 05:03 Phys Exam - Physical Examination Constitutional: NAD HEENT: PERRLA, sclera anicteric Neck: supple, full ROM Respiratory: no wheezing, no rhonchi, clear to auscultation bilateral Cardiovascular: RRR mumtaz distended mildly tender with hypoactive bs Musculoskeletal: edema present Neurological: non-focal, moves all 4 limbs Psychiatric: normal affect, A&O x 3 Skin: no rash Dx/Plan (1) Arthritis of right hip Code(s): M16.11 - UNILATERAL PRIMARY OSTEOARTHRITIS, RIGHT HIP Status: Acute Comment: s/p I&D, bacterial culture neg so far. No path, cyto, tissue. pt feels markedly better. suspect noninfectious, RF neg, ESTEFANIA and ANCA pending. no AFB or fungal cultures or smears. hold abx fo rnow. no other effusions or pain at present. ESR 70s and CRP 15+ (2) Ileus Code(s): K56.7 - ILEUS, UNSPECIFIED Status: Suspected Comment: KUB negative for overt obstruction, + BM's currently and no emesis, clear liquids and monitor response, consider surgical evaluation if clinically decompensating, increase ambulation (3) Normocytic anemia Code(s): D64.9 - ANEMIA, UNSPECIFIED Status: Acute Comment: Likely due to myelodysplastic process, transfuse 1u PRBC's today, repeat CBC in am (4) Right hip joint effusion Code(s): M25.451 - EFFUSION, RIGHT HIP Status: Acute Comment: drained (5) Septic hip Code(s): M00.9 - PYOGENIC ARTHRITIS, UNSPECIFIED Status: Acute Comment: s/p I&D POD #7, local care, IV Vancomycin and Zosyn, hold Vancomycin and repeat Vanc level due to elevated value, hold Vancomycin 24h (6) Status post incision and drainage Code(s): Z98.890 - OTHER SPECIFIED POSTPROCEDURAL STATES Status: Acute Comment: see above #1 (7) Hypothyroidism Code(s): E03.9 - HYPOTHYROIDISM, UNSPECIFIED Status: Chronic Qualifiers: Hypothyroidism type: acquired Qualified Code(s): E03.9 - Hypothyroidism, unspecified Comment: Continue Levothyroxine (8) Myelodysplasia (myelodysplastic syndrome) Code(s): D46.9 - MYELODYSPLASTIC SYNDROME, UNSPECIFIED Status: Chronic Comment: WBC 12k in 11/2016, now 50 up to 63K with monocytic predominance. Serum cytology ordered. Dr Linton recommends conservative management and no Bx for now as it likely wont change treatment plan, follow trend - Plan KUB c/w possible ileus. hold of NGT at this point. I have requested -: surgical eval. * .
--- NOTE | 2017-02-15 14:10 | RAD ---
ABDOMEN 2 VIEWS WITH 1 VIEW CHEST: Date: 02/15/17 HISTORY: Abdominal distention. FINDINGS: Supine and upright views of abdomen, as well as AP view of chest obtained. There is a nasogastric tube in place. Small bilateral pleural effusions seen. No evidence of pneumoni a seen. There are some areas of scarring seen in the left lung base. Two views of abdomen demonstrate nasogastric tube in place. There is a moderate degree of small bowel dilatation with air fluid levels seen. When compared to the previous exam from 02/11/17, air fluid l evels are stable and have not significantly changed. No evidence of free intraperitoneal air is seen. IMPRESSION: 1. Interval placement of a nasogastric tube. 2. Small bowel dilatation with air fluid levels compatible with bowel obstruction, not significantly changed since the previous exam from 02/11/17. POS: [facility]
[2017-02-15] MEDS ORDERED: Sodium Chloride 0.9% 1,000 ML IV SCH (14:45)
[2017-02-15] MEDS ORDERED: Acetaminophen 1,000 MG in Premix Bag 1 BAG IVPB PRN (18:16)
[2017-02-15] MEDS: Enoxaparin Sodium 30 MG/0.3 ML SYRINGE SC SCH (21:59)
[2017-02-15] MEDS: Latanoprost 0.005% Ophth Soln 2.5 ml Bottle L EYE SCH (22:01)
--- NOTE | 2017-02-15 23:47 | CON ---
DATE OF CONSULT: 02/15/2017 HISTORY OF PRESENT ILLNESS: Inge Menendez is an 86-year-old female who lives with her in [facility] [place] until about 4 to 8 weeks ago when they moved in the [facility] assisted living. Patient reports she has been driving independently ambulatory until she reported to the emergency [facility] on 02/04/2017 that was admitted and found to have a right septic hip undergoing incision and draina ge of the right hip by Dr. Saldaña on 02/04/2017. Cultures revealed coagulase-negative Staphylococc us. Patient initially evaluated at [facility] facility in [place], where an x-ray of the hip, CAT scan of the hip was obtained. I suggested that did not appreciate any mass in the thigh or hip and knee was noted to be normal and she underwent an incision and drainage of the right hip draining some yellow, slightly colored cloudy fluid from the hip capsule. Capsule had been left open and the woun d closed. On admission, her white count was noted to be 50,000 and has fallen to 27,000, but it is b ack up to 52,000. Hemoglobin has ranged from 7.8 to 8.7. The patient reports that since being in [facility], she has suffered nausea and vomiting and had diarrhea on occasion. I was asked to see he r regarding abdominal distention. Abdominal x-rays were obtained revealing distended small bowel loo ps with air-fluid levels compatible with bowel obstruction unchanged since 02/11/2017. NG tube place d, drained over 600 of bilious material. Abdominal x-rays revealed good NG tube placement. MR of [facility] right hip suggests a large right gluteus medius abscess, septic trochanteric bursitis overlying the right hip. Patient reports that in June at [facility] small bowel follow through was ordered for pro blems with abdominal distention and this resolved her problems. She reports having had a colonoscopy many years ago, but it has been over 10 years since she has had one. She has had problems at home w ith intermittent constipation and loose stools. Only operation she reports is total abdominal hyster ectomy, bilateral salpingo-oophorectomy. Patient was then felt that she had an ileus and she would be treated for that until now. 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 ALLERGIES: None. TOBACCO: None. ALCOHOL: None. MEDICATIONS: At home eyedrops, levothyroxine, hydrocodone. PAST SURGICAL HISTORY: Total abdominal hysterectomy, bilateral salpingo-oophorectomy, bladder sling, tonsillectomy as a child. PAST MEDICAL HISTORY: Bone marrow disorder, myelodysplastic syndrome, hypothyroidism. PHYSICAL EXAMINATION: GENERAL: 5 feet 4, 143 pounds, 24 BMI. VITAL SIGNS: 98.1, 100 heart rate, 14 respiratory rate, 153/66. HEAD, EARS, EYES, NOSE, AND THROAT: Unremarkable. LUNGS: Clear to auscultation. CARDIAC: Regular rate and rhythm with a 3/6 ejection murmur. ABDOMEN: Soft, distended, tympanitic. Bowel sounds present. EXTREMITIES: Unremarkable. LABORATORY DATA: White count today is 52,000, hemoglobin 8.7, platelet count 380,000. BUN is 21, cr eatinine 1.33, sodium 138, potassium 3.7. ASSESSMENT AND PLAN: 1. Abdominal distention, no recent bowel movement, no flatus. Findings consistent with an ileus or bowel obstruction. We will continue the NG tube and IV fluid hydration. We would discontinue her po tassium chloride . She has become slightly prerenal with elevated BUN and creatinine in view of her ileus, positive for a bowel obstruction, we will increase to her IV fluids from 75 mL per hour t o 125 mL per hour. Recheck her renal function tomorrow. We would minimize narcotics and stop her or al medications. 2. Myelodysplastic syndrome. 3. Cardiac murmur. She has not had an echocardiogram. We will leave this to medical as she may hav e had this done as an outpatient. She has ordered, Imodium p.r.n., we will stop that, also dis continue her MiraLax and tramadol. We will keep her n.p.o. except for ice chips and began Lovenox fo r deep venous thrombosis prophylaxis. MRI a few days ago suggests large hip abscess, we will discuss with Orthopedics.
[2017-02-16] MEDS: Sodium Chloride 0.9% 1,000 ML IV SCH ×3 (05:12→17:24)
[2017-02-16 05:32] LABS: Hemoglobin 8.7 g/dL (12.0-16.0); Mean Corpuscular HGB CONC 31.6 g/dL (32.0-36.0); Mean Corpuscular Hemoglobin 29.2 pg (27.0-31.0); Mean Corpuscular Volume 92.6 fl (81.0-99.0); Mean Platelet Volume 9.4 fL (7.4-10.4); Platelet Count 369 thou/uL (130-400); RBC Distribution Width 15.7 % (11.5-14.5); Red Blood Cell (RBC) Count 2.97 mill/uL (4.20-5.40)
[2017-02-16 05:58] LABS: Band 29 % (5-11); Hypochromia SLIGHT = 6-15 cells (100X) (0-5/hpf); Lymphocytes 6 % (21-51); MDiff Complete? YES; Metamyelocyte 6 % (0-0); Monocytes 15 % (0-10); Myelocyte 4 % (0-0); Neutrophil 40 % (42-75); Nucleated RBC 2 % (0); PLT Morphology Comment Appears Adequate
[2017-02-16 06:01] LABS: Anion Gap 15 mmol/L (10-20); BUN (Urea Nitrogen) 21 mg/dL (9.8-20.1); Calc. Creatinine Clearance 28 mL/min (70-130); Calcium 8.9 mg/dL (7.8-10.44); Carbon Dioxide 26 mmol/L (23-31); Chloride 103 mmol/L (98-107); Estimated GFR-MDRD 34; Glucose 84 mg/dL (83-110); Potassium 3.3 mmol/L (3.5-5.1); Sodium 141 mmol/L (136-145)
[2017-02-16] MEDS: Brimonidine Tartrate 0.2% Ophth Soln 5 ml Bottle EA EYE SCH ×2 (08:32→20:39)
[2017-02-16] MEDS: Timolol 0.5% Ophth Soln 5 ml Bottle EA EYE SCH ×2 (08:32→20:37)
[2017-02-16] MEDS: Dorzolamide HCl 2% Ophth Soln 10 ml Bottle EA EYE SCH ×2 (08:33→20:38)
[2017-02-16] MEDS: Pantoprazole 40 MG VIAL IVP SCH (08:34)
--- NOTE | 2017-02-16 10:24 | PDOC.PN ---
- Subjective Encounter Start Date: 02/16/17 Encounter Start Time: 09:30 Pt seen on rounds, i am re-assuming care. I havent seen her in about 10 days No F/C, no N/V/D/C today. Small BM earlier when up to urinate Complaint of right hip hurting for last 30 min prior to my arrival. Wants to get up to a chair. Case discussed at length with orthopedics seen by surgery yesterday. NGT placed to LWS - nausea resolved. 10 point ROs performed and neg for all systems except as above - Objective MAR Reviewed: Yes Vital Signs & Weight: Vital Signs (12 hours) Temp Pulse Resp BP BP Pulse Ox 02/16/17 08:32 105 H 139/59 L 02/16/17 07:59 98.0 F 105 H 14 139/59 L 87 L 02/16/17 04:00 98.1 F 101 H 20 128/63 94 L 02/16/17 00:00 98.2 F 99 16 127/63 91 L Weight Admit Weight 143 lb Weight 143 lb I&O: 02/15/17 02/16/17 02/17/17 06:59 06:59 06:59 Intake Total 8303 790 1199 Output Total 1700 450 Balance 1460 -1280 800 Result Diagrams: 02/16/17 05:03 02/16/17 05:04 Radiology Reviewed by me: Yes EKG Reviewed by me: Yes Phys Exam - Physical Examination Constitutional: NAD HEENT: PERRLA, moist MMs, sclera anicteric, oral pharynx no lesions NGT in place to LIWS Neck: no nodes, no JVD, supple, full ROM Respiratory: no wheezing, no rales, no rhonchi, clear to auscultation bilateral Cardiovascular: RRR, no rub murmurs stable Gastrointestinal: soft, non-tender, no distention, positive bowel sounds bowel sounds present, hypoactive, no r/r/g Musculoskeletal: pulses present, edema present Neurological: non-focal, normal sensation, moves all 4 limbs Lymphatic: no nodes Psychiatric: normal affect, A&O x 3 Skin: no rash, normal turgor, cap refill <2 seconds Dx/Plan (1) Arthritis of right hip Code(s): M16.11 - UNILATERAL PRIMARY OSTEOARTHRITIS, RIGHT HIP Status: Acute Comment: s/p I&D, bacterial culture neg so far. No path, cyto, tissue. pt feels markedly better. suspect noninfectious, RF neg, ESTEFANIA and ANCA pending. no AFB or fungal cultures or smears. hold abx fo rnow. no other effusions or pain at present. ESR 70s and CRP 15+. Cultures remained negative, fungal cx neg to date, no AFB cultures sent. feels markedly better and able to walk on. owuld NOT rx for bacterial infection at this point (2) Right hip joint effusion Code(s): M25.451 - EFFUSION, RIGHT HIP Status: Acute Comment: drained (3) Myelodysplasia (myelodysplastic syndrome) Code(s): D46.9 - MYELODYSPLASTIC SYNDROME, UNSPECIFIED Status: Chronic Comment: WBC 12k in 11/2016, now 50 up to 69K with monocytic predominance. Serum cytology ordered. Dr Linton recommends conservative management and no Bx for now as it likely wont change treatment plan, follow trend. I think she is just very reactive. (4) Hypothyroidism Code(s): E03.9 - HYPOTHYROIDISM, UNSPECIFIED Status: Chronic Qualifiers: Hypothyroidism type: acquired Qualified Code(s): E03.9 - Hypothyroidism, unspecified Comment: Continue Levothyroxine (5) ANTOINETTE (acute kidney injury) Code(s): N17.9 - ACUTE KIDNEY FAILURE, UNSPECIFIED Status: Acute Comment: I think this was a Vanc+Zosyn effect. off both. IVF upped by surgery while NPO and NGT to LIWS. slightly better today. follow (6) Ileus Code(s): K56.7 - ILEUS, UNSPECIFIED Status: Suspected Comment: KUB negative for overt obstruction, + BM's currently and no emesis, npo x ice chips. surgery following. less symptomatic today. OOB and ambulate - Plan cont current plan of care, PT/OT, out of bed/ambulate * .
--- NOTE | 2017-02-16 15:07 | RAD ---
TWO VIEW ABDOMEN: TECHNIQUE: Supine and upright views. HISTORY: Followup ileus. COMPARISON: Comparison is made to abdominal films from yesterday. FINDINGS: There is scattered gas throughout the colon. There continues to be gas-filled mildly dilated loops o f small bowel in the mid abdomen. No free air is seen on the upright study. IMPRESSION: Continued gas-filled mildly dilated loops of small bowel, unchanged in appearance from yesterday. POS: [facility]
--- NOTE | 2017-02-16 18:04 | PRG ---
DATE OF SERVICE: 02/16/2017 SUBJECTIVE: Ms. Menendez is doing well today. She has not had any hip pain. Her NG tube output has been 900 over the last 24 hours. She has been making urine. Abdominal x-rays are nonspecific with s ome dilated loops of small bowel, blood gas in the colon. Report is that she did pass some stool. H er BUN and creatinine are still elevated to 21 and 1.47 respectively. Potassium 3.3, sodium 141. Wh ite count is 69,000, hemoglobin 8.7. ASSESSMENT AND PLAN: 1. Myelodysplastic syndrome with reactive leukocytosis. 2. Right hip problems resolved with buttocks fluid collection due to orthopedic intervention, no act ion required. 3. Ileus. She has experienced this before and has outpatient problems with gastrointestinal functio n. We will obtain a small bowel follow through tomorrow and await these results.
[2017-02-16] MEDS: Acetaminophen 1,000 MG in Premix Bag 1 BAG IVPB PRN (19:41)
[2017-02-16] MEDS: Enoxaparin Sodium 30 MG/0.3 ML SYRINGE SC SCH (20:36)
[2017-02-16] MEDS: Latanoprost 0.005% Ophth Soln 2.5 ml Bottle L EYE SCH (20:39)
[2017-02-17] MEDS: Acetaminophen 1,000 MG in Premix Bag 1 BAG IVPB PRN ×2 (01:31→08:56)
[2017-02-17] MEDS: Sodium Chloride 0.9% 1,000 ML IV SCH ×3 (01:32→16:43)
[2017-02-17 04:46] LABS: Anion Gap 16 mmol/L (10-20); BUN (Urea Nitrogen) 24 mg/dL (9.8-20.1); Calc. Creatinine Clearance 27 mL/min (70-130); Calcium 8.3 mg/dL (7.8-10.44); Carbon Dioxide 22 mmol/L (23-31); Chloride 106 mmol/L (98-107); Estimated GFR-MDRD 33; Glucose 78 mg/dL (83-110); Magnesium 1.6 mg/dL (1.6-2.6); Potassium 3.4 mmol/L (3.5-5.1); Sodium 141 mmol/L (136-145)
[2017-02-17 05:48] LABS: Band 15 % (5-11); Hemoglobin 6.7 g/dL (12.0-16.0); Lymphocytes 12 % (21-51); MDiff Complete? YES; Mean Corpuscular HGB CONC 30.5 g/dL (32.0-36.0); Mean Corpuscular Hemoglobin 28.6 pg (27.0-31.0); Mean Corpuscular Volume 93.5 fl (81.0-99.0); Metamyelocyte 4 % (0-0); Monocytes 25 % (0-10); Neutrophil 41 % (42-75); PLT Morphology Comment Appears Adequate; Platelet Count 319 thou/uL (130-400); Polychromasia MODERATE = 3-4 cells (100X) (0-2/hpf); RBC Distribution Width 15.7 % (11.5-14.5); Reactive Lymphocytes 3 % (0-10); Red Blood Cell (RBC) Count 2.33 mill/uL (4.20-5.40)
[2017-02-17] MEDS: Pantoprazole 40 MG VIAL IVP SCH (08:51)
[2017-02-17] MEDS: Timolol 0.5% Ophth Soln 5 ml Bottle EA EYE SCH ×2 (08:53→20:58)
[2017-02-17] MEDS: Brimonidine Tartrate 0.2% Ophth Soln 5 ml Bottle EA EYE SCH ×2 (08:54→20:57)
[2017-02-17] MEDS: Dorzolamide HCl 2% Ophth Soln 10 ml Bottle EA EYE SCH ×2 (08:54→20:58)
[2017-02-17 10:58] LABS: Hemoglobin 6.2 g/dL (12.0-16.0)
--- NOTE | 2017-02-17 11:23 | PDOC.PN ---
- Subjective Encounter Start Date: 02/17/17 Encounter Start Time: 09:40 Pt sleeping soundly, easily arousable, feels tires, no f/C,no N/V/D/C. Hip pain better now. No acute events overnight. Denies BRBPR, hematemesis, melena. Case discussed with Dr saldaña this morning, Dr obiren last evening face to face. Dr Obrien wants to get a SBFT today, will order. today, h/H down 2 grams, repeated, and even lower. Will transfuse. ? bleeding into hip or belly/bowel? 10 point ROs performed and neg for all systems except as per HPI - Objective MAR Reviewed: Yes Vital Signs & Weight: Vital Signs (12 hours) Temp Pulse Resp BP BP Pulse Ox 02/17/17 08:53 100 148/65 H 02/17/17 08:50 98.1 F 100 16 93 L 02/17/17 08:05 98.1 F 100 16 148/65 H 93 L 02/17/17 05:49 97.6 F 101 H 18 146/63 H 95 02/16/17 23:52 98 F 92 16 114/61 91 L Weight Admit Weight 143 lb Weight 143 lb I&O: 02/16/17 02/17/17 02/18/17 06:59 06:59 06:59 Intake Total 420 4125 Output Total 1700 1630 Balance -1280 2495 Result Diagrams: 02/17/17 10:34 02/17/17 03:33 Radiology Reviewed by me: Yes EKG Reviewed by me: Yes Phys Exam - Physical Examination Constitutional: NAD pale HEENT: PERRLA, moist MMs, sclera anicteric, oral pharynx no lesions Neck: no nodes, no JVD, supple, full ROM Respiratory: no wheezing, no rales, no rhonchi, clear to auscultation bilateral Cardiovascular: RRR, no significant murmur, no rub Gastrointestinal: soft, non-tender, no distention, positive bowel sounds bowel sound scant, no r/R/G Musculoskeletal: pulses present, edema present Neurological: non-focal, normal sensation, moves all 4 limbs Lymphatic: no nodes Psychiatric: normal affect, A&O x 3 Skin: no rash, normal turgor, cap refill <2 seconds Dx/Plan (1) Arthritis of right hip Code(s): M16.11 - UNILATERAL PRIMARY OSTEOARTHRITIS, RIGHT HIP Status: Acute Comment: s/p I&D, bacterial culture neg so far. No path, cyto, tissue. pt feels markedly better. suspect noninfectious, RF neg, ESTEFANIA and ANCA pending. no AFB or fungal cultures or smears. hold abx fo rnow. no other effusions or pain at present. ESR 70s and CRP 15+. Cultures remained negative, fungal cx neg to date, no AFB cultures sent. feels markedly better and able to walk on. Would NOT rx for bacterial infection at this point (2) Right hip joint effusion Code(s): M25.451 - EFFUSION, RIGHT HIP Status: Acute Comment: drained (3) Myelodysplasia (myelodysplastic syndrome) Code(s): D46.9 - MYELODYSPLASTIC SYNDROME, UNSPECIFIED Status: Chronic Comment: WBC 12k in 11/2016, now 50 up to 69K to 77k with monocytic predominance. Serum cytology ordered. Dr Linton recommends conservative management and no Bx for now as it likely wont change treatment plan, follow trend. I think she is just very reactive. Will ask oncology to see tomorrow. WE need to maek sure her blood dyscrasia has nothing to do with the other issues (4) Hypothyroidism Code(s): E03.9 - HYPOTHYROIDISM, UNSPECIFIED Status: Chronic Qualifiers: Hypothyroidism type: acquired Qualified Code(s): E03.9 - Hypothyroidism, unspecified Comment: Continue Levothyroxine (5) ANTOINETTE (acute kidney injury) Code(s): N17.9 - ACUTE KIDNEY FAILURE, UNSPECIFIED Status: Acute Comment: I think this was a Vanc+Zosyn effect. off both. IVF upped by surgery while NPO and NGT to LIWS. slightly better today. follow (6) Ileus Code(s): K56.7 - ILEUS, UNSPECIFIED Status: Suspected Comment: KUB negative for overt obstruction, + BM's currently and no emesis, npo x ice chips. surgery following. less symptomatic today. OOB and ambulate (7) Acute blood loss anemia Code(s): D62 - ACUTE POSTHEMORRHAGIC ANEMIA Status: Acute Comment: unsure of source/site. likely hip or bowel. haqs not sown up form bowel. hav enot reimaged hip. Will discuss again with Dr Saldaña - Plan cont current plan of care, PT/OT, out of bed/ambulate * .
--- NOTE | 2017-02-17 13:12 | CT ---
CT OF THE ABDOMEN AND PELVIS WITHOUT IV CONTRAST: INDICATION: Abdominal pain with distention and ileus. Concern for loose stool and bloody stool. COMPARISON: None. FINDINGS: There are moderate bilateral pleural effusions. There is bibasilar airspace consolidation. There is dense contrast seen within the stomach and small bowel loops consistent with the patient's o ngoing procedure of a small bowel follow-through utilizing Gastrografin contrast. Some beam-scattere d artifact limits detail within the upper abdomen from the concentrated enteric contrast within the r egion of the stomach. There are multiple dilated loops of small bowel that do transition to a normal caliber in the right l ower quadrant on image 59 of series 2. There is a mild amount of free fluid present within the abdomen. The unopacified liver, spleen, and visualized kidneys are unremarkable. The pancreas is difficult to see due to the spray artifact. There are moderate calcifications noted involving the abdominopelvic vasculature. There is a large 7.5 x 10.6 hyperdense hematoma within the right gluteus medius and minimus musculatu re on image 63 of series 2. There is diffuse anasarca. There is a compression abnormality along the superior aspect of T10 and T11, which in retrospect was probably present in the 12/19/16 abdominal s eries from [facility]. IMPRESSION: 1. Findings suspicious for a mild to moderate partial small bowel obstruction with a transition zone within the right lower quadrant of the abdomen. 2. Limitation of the exam due to prominent beam scatter artifact from the patient's enteric contrast . 3. Bibasilar airspace opacities with bilateral pleural effusions may reflect a component of atelecta sis or pneumonia. 4. Mild ascites and anasarca. 5. Large right gluteal intramusculature hematoma. 6. Likely chronic superior end plate compression fractures involving T10 and T11, which in retrospec t were probably present on an comparison abdominal radiograph dated 04/22/16. There is diffuse osteop enia. POS: [facility]
--- NOTE | 2017-02-17 16:04 | RAD ---
GASTROGRAFIN SMALL BOWEL EXAM: Technique: Gastrografin administered through NG tube. Sequential imaging of abdomen obtained. FINDINGS: Initial images show mild dilatation of the jejunum and ileum. Contrast reaches the right colon at 2 h ours. IMPRESSION: Ekg/Ecg Technician film shows gas filled mildly dilated loops of small bowel and the contrast small bowel exam als o exhibits diffuse mild dilatation of small bowel loops. A transition point is not definitely identif ied. Contrast reaches the colon within two hours. Findings could represent ileus or partial distal sm all bowel obstruction. POS: [facility]
--- NOTE | 2017-02-17 16:41 | PRG ---
DATE OF SERVICE: 02/17/2017 SUBJECTIVE: She is doing well today. She is slightly confused. Family reports that she does do thi s occasionally. Her son in [place] has power of patternmaker wood. Temperature 97.5 degrees, heart rate 93, respiratory rate 20, blood pressure 130/63. Gastric drainage overnight last 24 hours is 1030. T he patient has been urinating adequately. White count is 7700, hemoglobin 6.7. She has been transfu sed 2 units of blood. BUN is 24, creatinine 1.5 consistent with her chronic kidney disease. Sodium 141, potassium 3.4. The patient has not had a bowel movement. She has not passed flatus since yeste rd morning. I have spoken to the patient initially and the family is present and reiterates what s he has told me that she was hospitalized in [place] for nonoperative treatment of a bowel obstruction and has had interval problems with gastrointestinal function, abdominal bloating, distention intermi ttently. I had ordered a small bowel follow-through this morning and contrast initiated. Dr. Diogenes morris ordered a CAT scan of the abdomen that demonstrated probable transition zone distal small bowel . The patient is undergoing small bowel follow-through currently. Initial radiation / chemistry technician film reveals some g as in the colon suggestive of partial obstruction, but distended small bowel loops. The 1-hour film on the small bowel follow-through, there is distended small bowel without progression to the colon. OBJECTIVE: LUNGS: Clear to auscultation. CARDIAC: Regular rate and rhythm without murmur or gallop. ABDOMEN: Soft, distended, nontender. ASSESSMENT AND PLAN: 1. Small bowel obstruction secondary to past hysterectomy and probable adhesions. If the small martha l follow-through does not progress today, it is likely that she will need a laparotomy, adhesiolysis tomorrow, Saturday. I discussed this with the family present and they are in agreement and they expect ed this to occur with the problems she has been having in the past. 2. Status post drainage of right hip recently with resultant hematoma, right gluteus demonstrated on today's CAT scan. 3. Myelodysplastic syndrome with anemia and leukocytosis. Dr. Ender Garrett discussed this with Dr. Tess montesinos and this has happened in the past with her and is not unexpected. She is anemic and was trans fused 2 units of blood. Her platelet count is 319,000. [facility] 4. Chronic kidney disease. 5. Dementia. 6. Advanced age.
[2017-02-17] MEDS ORDERED: MD-Gastroview 120 ML BOT ONE (17:50)
[2017-02-17 19:45] LABS: Hemoglobin 10.2 g/dL (12.0-16.0)
[2017-02-17] MEDS: Latanoprost 0.005% Ophth Soln 2.5 ml Bottle L EYE SCH (20:57)
[2017-02-18] MEDS: Sodium Chloride 0.9% 1,000 ML IV SCH ×3 (03:04→17:19)
[2017-02-18] MEDS: Acetaminophen 1,000 MG in Premix Bag 1 BAG IVPB PRN ×3 (03:04→23:30)
[2017-02-18 05:38] LABS: Anion Gap 19 mmol/L (10-20); BUN (Urea Nitrogen) 22 mg/dL (9.8-20.1); Calc. Creatinine Clearance 27 mL/min (70-130); Calcium 8.6 mg/dL (7.8-10.44); Carbon Dioxide 20 mmol/L (23-31); Chloride 113 mmol/L (98-107); Estimated GFR-MDRD 33; Glucose 95 mg/dL (83-110); Hemoglobin 9.7 g/dL (12.0-16.0); Mean Corpuscular HGB CONC 30.1 g/dL (32.0-36.0); Mean Corpuscular Hemoglobin 28.4 pg (27.0-31.0); Mean Corpuscular Volume 94.4 fl (81.0-99.0); Mean Platelet Volume 10.2 fL (7.4-10.4); Platelet Count 289 thou/uL (130-400); RBC Distribution Width 15.5 % (11.5-14.5); Sodium 149 mmol/L (136-145); White Blood Cell (WBC) Count 94.6 thou/uL (4.8-10.8)
[2017-02-18 05:52] LABS: Band 14 % (5-11); Lymphocytes 4 % (21-51); MDiff Complete? YES; Metamyelocyte 3 % (0-0); Monocytes 25 % (0-10); Myelocyte 3 % (0-0); Neutrophil 50 % (42-75); PLT Morphology Comment Appears Adequate
[2017-02-18 08:11] LABS: ALT (SGPT) 19 U/L (8-55); AST (SGOT) 33 U/L (5-34); Alkaline Phosphatase 146 U/L (40-150); Bilirubin, Direct 0.5 mg/dL (0.1-0.3); Bilirubin, Total 0.8 mg/dL (0.2-1.2); Protein, Total 6.1 g/dL (6.0-8.3)
[2017-02-18] MEDS ORDERED: Ondansetron HCl/PF 4 MG/2 ML Vial ONE (08:56)
[2017-02-18] MEDS ORDERED: Propofol 200 MG/20 ML VIAL ONE (08:56)
[2017-02-18] MEDS ORDERED: Succinylcholine Chloride 20 MG/ML 10 ml SYRINGE FS ONE (08:56)
[2017-02-18] MEDS ORDERED: Lidocaine 1% PF 5 ML VIAL ONE (08:56)
[2017-02-18] MEDS ORDERED: PHENYLEPHRINE-NS 100 MCG/ML 10 ML SYRINGE ONE (08:56)
[2017-02-18] MEDS: Dorzolamide HCl 2% Ophth Soln 10 ml Bottle EA EYE SCH ×2 (09:17→22:16)
[2017-02-18] MEDS: Pantoprazole 40 MG VIAL IVP SCH (09:17)
[2017-02-18] MEDS: Timolol 0.5% Ophth Soln 5 ml Bottle EA EYE SCH ×2 (09:17→22:16)
[2017-02-18] MEDS: Brimonidine Tartrate 0.2% Ophth Soln 5 ml Bottle EA EYE SCH ×2 (09:18→22:15)
--- NOTE | 2017-02-18 09:52 | RAD ---
ABDOMEN 2 VIEWS: Date: 02/18/17 HISTORY: Follow-up small bowel obstruction. COMPARISON: CT abdomen and pelvis from prior day. FINDINGS: On the left lateral decubitus view, there is no free air detected under the peritoneum. On multiple v iews, there is contrast throughout the small bowel and is entering into the large bowel. An enteric tube is in place with tip in the gastric body. Large sliding hiatal hernia. Layering pleural effusions. IMPRESSION: Contrast is transited throughout the small bowel and is within the large bowel; therefore, there is n o high grade small bowel obstruction. POS: OFF
[2017-02-18] MEDS: Ondansetron HCl/PF 4 MG/2 ML Vial IVP PRN (11:07)
[2017-02-18] MEDS ORDERED: Fentanyl 100 MCG/2 ML VIAL ONE ×2 (12:54→15:17)
--- NOTE | 2017-02-18 13:02 | CON ---
DATE OF CONSULTATION: 02/18/2017 REASON FOR CONSULTATION: Leukocytosis. HISTORY OF PRESENT ILLNESS: Ms. Menendez is an 86-year-old female with a history of probable low-grad e myelodysplastic syndrome, who presented to the emergency room with acute arthritis and leukocytosis . She developed hip pain 48 hours prior to arrival. She was unable to bear weight. In the emergenc y room, her CBC showed a white count of 50,000. She had a monocytosis consistent with her myelodyspl astic syndrome. Over the course of the hospital stay, the white count has fluctuated with a low of 2 7,000. Most recently, it has increased to 94,000. Patient did have surgery on her right hip on 07/2016. Culture was coagulase-negative Staphylococcus. She improved during the course of stay; means mert, she developed an ileus and had again a fluid buildup in the right hip and is currently going for repeat I and D. The patient's current CBC shows a white count of 94.6. She has a hemoglobin of 9.7 , hematocrit 32.1, platelet count of 289. She has 50% neutrophils, 14% bands, 4% lymphocytes, and 25 % monocytes. She does have 3% metamyelocytes and 3% myelocytes. The patient complains of pain in th e right hip. PAST MEDICAL HISTORY: 1. Low-grade myelodysplastic syndrome with anemia and monocytosis, and occasional myelocyte and meta myelocytes on peripheral smear. 2. Prediabetes. 3. High cholesterol. 4. Glaucoma. 5. Osteoarthritis. 6. Macular degeneration. 7. Hypothyroidism. 8. Bilateral coronary artery stenosis. 9. Hearing loss. 10. Peptic ulcer, 1980. PAST SURGICAL HISTORY: 1. Right hip I and D. 2. Hysterectomy. 3. Bladder suspension. 4. Tonsillectomy. 5. Cataract removal. 6. Corneal transplant. ALLERGIES: No known drug allergies. CURRENT MEDICATIONS: 1. Tylenol p.r.n. 2. Eye drops b.i.d. 2. Protonix 40 mg daily. FAMILY HISTORY: Noncontributory. SOCIAL HISTORY: She is , has 5 children. No alcohol, tobacco, or illicit drug use. REVIEW OF SYSTEMS: Positive for confusion, abdominal bloating, and hip pain. PHYSICAL EXAMINATION: VITAL SIGNS: Temperature 97.8, pulse is 124, respiratory rate 22, BP is 165/84. She is 96% on 1 lit er. GENERAL: A well-developed, well-nourished female, in no acute distress. HEENT: Atraumatic, normocephalic. Pupils are equal and reactive to light. CARDIOVASCULAR: Regular rate and rhythm. LUNGS: Clear. ABDOMEN: Soft, mildly tender. NEUROLOGICAL: Nonfocal. PERTINENT LABORATORY AND X-RAYS: Current WBCs are 95,000 with polymorphonuclear leukocytes. Sodium is 149, potassium 3.0, chloride 113, CO2 is 20, BUN is 22, creatinine 1.5, total bilirubin is 0.8, T is 33, ALT is 19, alkaline phosphatase is 146, serum total protein is 6.1, albumin is 3. ESTEFANIA is ne gative. IMPRESSION: 1. Myelodysplastic syndrome with likely reactive leukocytosis. 2. Right hip effusion, status post incision and drainage. 3. Ileus. 4. Chronic kidney disease. 5. Advanced age. DISCUSSION: Case was discussed and reviewed in detail with Dr. Linton. He does feel that this is l ikely reactive leukocytosis. She has polymorphonuclear leukocytes with mature neutrophils, monocytes , and lymphocytes. A bone marrow biopsy is appropriate. I discussed with the orthopedic surgeons an d they will attempt to get a bone marrow aspirate during the I and D of the right hip this morning. If not, then this can be done in a few days when she has recovered from this procedure. She will be transfused p.r.n. and monitored closely. Thank you for the consult.
--- NOTE | 2017-02-18 13:22 | PDOC.PN ---
- Subjective Encounter Start Date: 02/18/17 Encounter Start Time: 09:00 Pt sen and exmained earlier on rounds. Case discussed with Dr Saldaña and MsBilly Kam face to face. Pt seen by Dr Reza last evening, mentioned repeat SBFT and OR trip of not improved Dr Saldaña wants tot take back to R today in setting of hematoma and WBC now up to 95+k. I have spoken with oncology to see. At thsi point her WBC is entering the leukemic range, adn i would like to ascertain exactly what process we are delaing with. Since visitng with the patient, she is being prepped for surgery for washout of her hip and will have a BMBx during the procedure while unde. Afebrile overnight, no N/V, no CP or SOB. iglesia NG tube okay, though she wants it out. - Objective MAR Reviewed: Yes Vital Signs & Weight: Vital Signs (12 hours) Temp Pulse Resp BP BP Pulse Ox 02/18/17 11:23 98.1 F 105 H 18 167/74 H 93 L 02/18/17 09:17 124 H 165/84 H 02/18/17 08:10 97.8 F 119 H 22 H 96 02/18/17 07:21 97.8 F 119 H 22 H 165/84 H 96 Weight Admit Weight 143 lb Weight 143 lb I&O: 02/17/17 02/18/17 02/19/17 06:59 06:59 06:59 Intake Total 4125 2575 Output Total 1630 1450 Balance 2495 1125 Result Diagrams: 02/18/17 04:44 02/18/17 04:44 Radiology Reviewed by me: Yes Phys Exam - Physical Examination Constitutional: NAD HEENT: PERRLA, moist MMs, sclera anicteric, oral pharynx no lesions NGT to LIWS Neck: no nodes, no JVD, supple Respiratory: no wheezing, no rales, no rhonchi, clear to auscultation bilateral Cardiovascular: RRR, no significant murmur, no rub tachy, regular Gastrointestinal: soft, non-tender, no distention scant bowel sounds Musculoskeletal: pulses present, edema present pedal edema bilaterally Neurological: non-focal, normal sensation, moves all 4 limbs Lymphatic: no nodes Psychiatric: normal affect, A&O x 3 Dx/Plan (1) Arthritis of right hip Code(s): M16.11 - UNILATERAL PRIMARY OSTEOARTHRITIS, RIGHT HIP Status: Acute Comment: s/p I&D, bacterial culture neg so far. No path, cyto, tissue. pt feels markedly better. suspect noninfectious, RF neg, ESTEFANIA and ANCA pending. no AFB or fungal cultures or smears. hold abx fo rnow. no other effusions or pain at present. ESR 70s and CRP 15+. Cultures remained negative, fungal cx neg to date, no AFB cultures sent. feels markedly better and able to walk on. Would NOT rx for bacterial infection at this point. TO OR 02/18 for washout and look. WBC trending up, but little in the way of symptoms, but again, would not expect much symptoms after synovectomy (2) Right hip joint effusion Code(s): M25.451 - EFFUSION, RIGHT HIP Status: Acute Comment: drained. Now iwth hematoma. washout today. follow up on findings (3) Myelodysplasia (myelodysplastic syndrome) Code(s): D46.9 - MYELODYSPLASTIC SYNDROME, UNSPECIFIED Status: Chronic Comment: WBC 12k in 11/2016, now 50 up to 69K to 77k to 95K with monocytic predominance. Serum cytology ordered. Dr Linton recommends conservative management and no Bx for now as it likely wont change treatment plan, follow trend. I think she is just very reactive. Will ask oncology to see tomorrow. WE need to make sure her blood dyscrasia has nothing to do with the other issues. Seen by onc chris steward BMBx planned in OR 02/18 (4) Hypothyroidism Code(s): E03.9 - HYPOTHYROIDISM, UNSPECIFIED Status: Chronic Qualifiers: Hypothyroidism type: acquired Qualified Code(s): E03.9 - Hypothyroidism, unspecified Comment: Continue Levothyroxine (5) ANTOINETTE (acute kidney injury) Code(s): N17.9 - ACUTE KIDNEY FAILURE, UNSPECIFIED Status: Acute Comment: I think this was a Vanc+Zosyn effect. off both. IVF upped by surgery while NPO and NGT to LIWS. stable today. follow (6) Ileus Code(s): K56.7 - ILEUS, UNSPECIFIED Status: Suspected Comment: KUB negative for overt obstruction, + BM's currently and no emesis, npo x ice chips. surgery following. SBFT showed ileus or PSBO, repeat films planned today. (7) Acute blood loss anemia Code(s): D62 - ACUTE POSTHEMORRHAGIC ANEMIA Status: Acute Comment: unsure of source/site. likely hip or bowel. has not shown up form bowel. have not reimaged hip. Dr Saldaña to wash out today. trnasfused 2 units yesterday, up form 6.2 to 10.2, down to 9.7 today - Plan cont current plan of care * .
[2017-02-18] MEDS ORDERED: Bupivacaine 0.25% HCL 30 ML VIAL ONE (13:40)
[2017-02-18] MEDS ORDERED: Promethazine HCl 25 MG/ML VIAL SLOW IVP PRN (14:48)
[2017-02-18] MEDS ORDERED: Promethazine HCl 25 MG/ML VIAL IM PRN (14:48)
[2017-02-18] MEDS ORDERED: Ondansetron HCl/PF 4 MG/2 ML Vial IVP PRN (14:48)
--- NOTE | 2017-02-18 17:51 | PRG ---
DATE OF SERVICE: 02/18/2017 SUBJECTIVE: Inge Menendez has completed her small bowel followthrough with a transit contrast in t he right colon within 2 hours. Follow up x-rays this morning reveal stagnant contrast in the small b owel. Patient's NG tube this morning once took back up to suction and has drained 1450 mL. She is s cheduled for a bone marrow today. OBJECTIVE: VITAL SIGNS: Temperature 98.1 degrees, pulse 105, blood pressure 167/74. LUNGS: Clear to auscultation. CARDIAC: Regular rate and rhythm without murmur or gallop. ABDOMEN: Soft, slightly tympanitic. Slightly distended, but less so than yesterday. LABORATORY DATA: White count 94,000, hemoglobin 9.7. Basic metabolic profile is unremarkable with C KD chronic changes, BUN 22, creatinine 1.5. ASSESSMENT AND PLAN: The patient has a several month history of GI motility problems, possibly relat ed to partial bowel obstruction from her previous hysterectomy despite small bowel follow through rev ealing the above findings. She has significant output of her NG tube. At this point, we would plan to clamp her NG tube and check residual in the morning. We will check abdominal x-rays in the [facility], could consider removing the NG tube depending on how she tolerates NG tube clamped today.
--- NOTE | 2017-02-18 18:07 | OP ---
DATE OF SURGERY: 02/18/2017 PREOPERATIVE DIAGNOSES: 1. Postoperative hematoma, right hip. 2. Myelodysplastic syndrome. POSTOPERATIVE DIAGNOSES: 1. Postoperative hematoma, right hip. 2. Myelodysplastic syndrome. SURGICAL PROCEDURES: 1. Incision and drainage of right hip hematoma. 2. Right iliac crest bone marrow aspirate with bone biopsy. ANESTHESIA: General. SURGEON: Rigo Saldaña M.D. NAIL WELTER: Rich Tafoya PA-C ESTIMATED BLOOD LOSS: 500 mL if you include the 400 mL hematoma present. SPECIMEN: 1. Aspirate was taken both superficial to the tensor fascia and deep to the tensor fascia. This asp irate was sent for Gram stain and culture and sensitivity. 2. Bone marrow aspirate from right anterior iliac crest sent for pathology, flow cytometry and then a right iliac crest bone biopsy also obtained. DRAINS: Hemovac x2. COMPLICATIONS: None. OUTCOME: Satisfactory. INDICATIONS: Ms. Menendez is a pleasant 86-year-old lady who is now 2 weeks into a hospitalization, i nitially thought for a septic hip with some severe hip pain and a white count of 40,000. The patient is now status post irrigation and debridement, which has only grown out 1 broth after 3 days of incu bation for any organisms. A follow up MRI was obtained of the hip that did show hematoma and patient continued to show a very significant elevated white blood cell count. At this time, the patient now taken back to the operating room for an anticipated incision and drainage procedure due to the fact that she is still draining from her skin incision, but also to obtain iliac crest bone marrow aspirat e and bone biopsy to further workup the presumed myelodysplastic syndrome. Informed consent has been obtained. I believe all questions answered. PROCEDURE IN DETAIL: After the induction of general anesthesia, the patient was positioned in a left lateral decubitus position and a sterile prep and drape was performed of the right lower extremity. First, attention was placed at the anterior iliac crest. Using the sterile prep and drape, a small skin incision was made at the anterior crest. After skin was sharply incised, the bone marrow aspira te tray was opened and using the sleeve with trocar introduced into the marrow cavity of the anterior iliac crest. This was aspirated for 5 mL of blood to be sent to pathology and then a green top and purple top tube were also gathered. Following this, the trocar was removed and then repositioned wit h help of the stylet to obtain a bone biopsy from the iliac crest. This does result in the bone biop sy measuring in excess of 1.5 cm. The manufacturing lab technician was in the room at the time of gathering these specimens and felt that all of the specimens were good and would be of diagnostic value. As manoz ch, the small incision was closed with a single staple. Next, the previously placed philip from her incision and drainage procedure were removed. This was followed by cutting of the 2-0 Vicryl and 0 Vicryl sutures. An aspirate was obtained from above the tensor fascia and IT band. This was sent for Gram stain culture and sensitivity. This just looks li ke serous fluid. Next, the IT band was again divided just by removing the prior sutures. At this po int, there was a large hematoma posterior to the joint capsule. This was evacuated and once evacuate d, aspiration of this fluid also performed and sent for Gram stain culture and sensitivity. Next, 5 liters of normal saline was irrigated through the wound. This resulted in final evacuation of the he matoma. No active bleeding was encountered. As such, the wound again inspected and found to be free of any further hematoma and then a Hemovac drain was placed posterior to the hip capsule. This was followed by closure of the IT band and tensor fascia. A second Hemovac drain was then placed superfi cial to this structure with closure of Puja's fascia, and then 2-0 Vicryl for the subcutaneous laye r. Prolene sutures were then used for the final skin closure. A Xeroform gauze and tape dressing wa s applied to the thigh and then patient was transferred to recovery room in stable condition. There were no complications and she tolerated the procedure well.
[2017-02-18] MEDS ORDERED: CEFAZOLIN 1 GM VIAL SLOW IVP SCH (22:00)
[2017-02-18] MEDS: Latanoprost 0.005% Ophth Soln 2.5 ml Bottle L EYE SCH (22:15)
[2017-02-18] MEDS: CEFAZOLIN 1 GM, Syringe 2.5 ML in Sterile Water 7.5 ML SLOW IVP SCH (22:15)
[2017-02-19 05:47] LABS: ALT (SGPT) 14 U/L (8-55); AST (SGOT) 30 U/L (5-34); Albumin 2.9 g/dL (3.4-4.8); Alkaline Phosphatase 138 U/L (40-150); Anion Gap 14 mmol/L (10-20); BUN (Urea Nitrogen) 23 mg/dL (9.8-20.1); Bilirubin, Total 0.6 mg/dL (0.2-1.2); Calc. Creatinine Clearance 30 mL/min (70-130); Calcium 7.9 mg/dL (7.8-10.44); Carbon Dioxide 24 mmol/L (23-31); Chloride 116 mmol/L (98-107); Estimated GFR-MDRD 37; Globulin 2.9 g/dL (2.4-3.5); Glucose 86 mg/dL (83-110); Magnesium 1.7 mg/dL (1.6-2.6); Protein, Total 5.8 g/dL (6.0-8.3); Sodium 151 mmol/L (136-145)
[2017-02-19] MEDS: Sodium Chloride 0.9% 1,000 ML IV SCH ×3 (06:39→14:26)
[2017-02-19] MEDS: CEFAZOLIN 1 GM, Syringe 2.5 ML in Sterile Water 7.5 ML SLOW IVP SCH ×3 (06:39→21:37)
[2017-02-19 08:38] LABS: Hemoglobin 8.8 g/dL (12.0-16.0); Mean Corpuscular HGB CONC 29.2 g/dL (32.0-36.0); Mean Corpuscular Hemoglobin 28.3 pg (27.0-31.0); Mean Platelet Volume 9.8 fL (7.4-10.4); Platelet Count 288 thou/uL (130-400); Red Blood Cell (RBC) Count 3.09 mill/uL (4.20-5.40); White Blood Cell (WBC) Count 80.2 thou/uL (4.8-10.8)
[2017-02-19] MEDS: Brimonidine Tartrate 0.2% Ophth Soln 5 ml Bottle EA EYE SCH ×2 (08:44→20:54)
[2017-02-19] MEDS: Dorzolamide HCl 2% Ophth Soln 10 ml Bottle EA EYE SCH ×2 (08:44→20:55)
[2017-02-19] MEDS: Timolol 0.5% Ophth Soln 5 ml Bottle EA EYE SCH ×2 (08:45→20:55)
[2017-02-19] MEDS: Pantoprazole 40 MG VIAL IVP SCH (08:45)
[2017-02-19] MEDS ORDERED: Ibuprofen 600 MG TAB PO PRN (08:51)
[2017-02-19] MEDS ORDERED: traMADol HCl 50 MG TAB PO PRN (08:51)
[2017-02-19 09:18] LABS: Band 27 % (5-11); Lymphocytes 3 % (21-51); MDiff Complete? YES; Metamyelocyte 8 % (0-0); Monocytes 24 % (0-10); Myelocyte 10 % (0-0); Neutrophil 28 % (42-75); Nucleated RBC 1 % (0); PLT Morphology Comment Appears Adequate; Polychromasia MODERATE = 3-4 cells (100X) (0-2/hpf)
[2017-02-19] MEDS: Polyethylene Glycol 3350 17 GM Packet PO SCH (10:03)
--- NOTE | 2017-02-19 11:37 | PRG ---
DATE OF SERVICE: 02/19/2017 SUBJECTIVE: Ms. Menendez is doing well today. Her small bowel follow through per NG tube yesterday r eached the colon within 2 hours. She reports, this morning, her abdomen is slightly distended, but m uch better than yesterday. She has had multiple bowel movements. NG tube was clamped overnight more than 12 hours and residual this morning was less than 20 mL. Her NG tube was removed and diet advan may to full liquids. Yesterday, she underwent evacuation of right buttock hematoma and bone marrow a spirate. Dr. Saldaña performed this. She did have abdominal x-rays this morning, portable, reveali ng a nonspecific bowel gas pattern. She has contrast in her colon and a few distended bowel loops, b ut not indicative of perhaps partial low-grade obstruction. OBJECTIVE: LUNGS: Clear to auscultation. CARDIAC: Regular rate and rhythm without murmur or gallop. ABDOMEN: Soft, bowel sounds present and nontender. LABORATORY DATA: White count 80,000, hemoglobin 8.8. Sodium 151, potassium 3.0, BUN 23 and creatini ne 1.35. ASSESSMENT AND PLAN: Chronic gastrointestinal problems. She had a small bowel follow through in [facility] a few months ago and has had some intermittent abdominal distention. She has had a prior hyster ectomy and probably has partial obstruction, mechanical from that event. Currently, there is no marlon cation for surgery at this point. Her NG tube has been removed. I would advance her diet as tolerat ed and give her MiraLax every day. If she has problems with recurrent nausea and vomiting, one could consider adhesiolysis expecting adhesions from her prior hysterectomy and perhaps a laparoscopy coul d be done, but to minimize her incisions. At this point, I would recommend a diet trial to avoid molly lyndon and increase her mobility.
--- NOTE | 2017-02-19 11:41 | RAD ---
ABDOMEN TWO VIEWS: History: Follow up small bowel follow through. Comparison: Abdomen radiograph prior day. FINDINGS: There is much less contrast in the abdomen. There is, however, new distention of the small bowel philip uring up to 4 cm. IMPRESSION: 1. Decreased contrast in the abdomen, therefore, high grade small bowel obstruction is not present. 2. New mild dilatation of the small bowel loops measuring up to 4 cm. This may represent low grade ob struction versus ileus. 3. Layering effusions. POS: [facility]
--- NOTE | 2017-02-19 12:07 | PDOC.PN ---
- Subjective Encounter Start Date: 02/19/17 Encounter Start Time: 10:15 Pt sitting up in a chair, NGT has been removed, pt has a few sips of water and became very nauseated, but has not vomitied. Discussed case with a daughter who was present. Went over findings and current results and plan. WBC down to 80k. Flow report reviewed. Bone marrow path pending, operative culres pending, gram stain neg for organisms, WBC present. afebrile, no Chills, no D/c, no GI bleeding 10 point ROs performed and neg for all systems except as per HPI - Objective MAR Reviewed: Yes Vital Signs & Weight: Vital Signs (12 hours) Temp Pulse Resp BP BP BP Pulse Ox 02/19/17 10:40 153/76 H 02/19/17 08:45 99 153/76 H 02/19/17 08:00 98.2 F 99 18 153/76 H 94 L 02/19/17 04:00 97.6 F 99 16 130/67 94 L Weight Admit Weight 143 lb Weight 143 lb I&O: 02/18/17 02/19/17 02/20/17 06:59 06:59 06:59 Intake Total 2575 970 Output Total 1450 190 Balance 1125 780 Result Diagrams: 02/19/17 04:46 02/19/17 04:46 Radiology Reviewed by me: Yes Phys Exam - Physical Examination Constitutional: NAD HEENT: PERRLA, moist MMs, sclera anicteric, oral pharynx no lesions Neck: no nodes, no JVD, supple, full ROM Respiratory: no wheezing, no rales, no rhonchi, clear to auscultation bilateral Cardiovascular: RRR, no significant murmur, no rub Gastrointestinal: soft, no distention tinkling bowel sounds Musculoskeletal: pulses present, edema present Neurological: non-focal, normal sensation, moves all 4 limbs Lymphatic: no nodes Psychiatric: normal affect, A&O x 3 Dx/Plan (1) Arthritis of right hip Code(s): M16.11 - UNILATERAL PRIMARY OSTEOARTHRITIS, RIGHT HIP Status: Acute Comment: s/p I&D, bacterial culture neg so far. No path, cyto, tissue. pt feels markedly better. suspect noninfectious, RF neg, ESTEFANIA and ANCA pending. no AFB or fungal cultures or smears. hold abx fo rnow. no other effusions or pain at present. ESR 70s and CRP 15+. Cultures remained negative, fungal cx neg to date, no AFB cultures sent. feels markedly better and able to walk on. Would NOT rx for bacterial infection at this point. TO OR 02/18 for washout and look. WBC trending up, but little in the way of symptoms, but again, would not expect much symptoms after synovectomy (2) Right hip joint effusion Code(s): M25.451 - EFFUSION, RIGHT HIP Status: Acute Comment: drained. Now with hematoma drained, cultures pending. washout 02/18. follow up on findings (3) Myelodysplasia (myelodysplastic syndrome) Code(s): D46.9 - MYELODYSPLASTIC SYNDROME, UNSPECIFIED Status: Chronic Comment: WBC 12k in 11/2016, now 50 up to 69K to 77k to 95K with monocytic predominance. Post op hematoma drainge, back to 80k. Serum cytology ordered. Dr Linton recommends conservative management and no Bx for now as it likely wont change treatment plan, follow trend. I think she is just very reactive. Will ask oncology to see tomorrow. WE need to make sure her blood dyscrasia has nothing to do with the other issues. Seen by onc toda02/17, BMBx in OR pending result. 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 off both. IVF upped by surgery while NPO and NGT to LIWS. Cr down to 1.35 on 02/19 (6) Ileus Code(s): K56.7 - ILEUS, UNSPECIFIED Status: Suspected Comment: KUB negative for overt obstruction, + BM's currently and no emesis, npo x ice chips. surgery following. SBFT showed ileus or PSBO, repeat films neg for high grade obstruction. NGT pulled, diet to advance as toleated. Will add reglan as a propulsive agent (7) Acute blood loss anemia Code(s): D62 - ACUTE POSTHEMORRHAGIC ANEMIA Status: Acute Comment: unsure of source/site. likely hip or bowel. has not shown up form bowel. have not reimaged hip. Dr Saldaña to wash out today. trnasfused 2 units yesterday, up form 6.2 to 10.2, down to 8.8 today post op hematoma drainage - Plan cont current plan of care, plan discussed w/ family, PT/OT, out of bed/ambulate * .
[2017-02-19] MEDS: traMADol HCl 50 MG TAB PO PRN (14:29)
[2017-02-19] MEDS: Ondansetron HCl/PF 4 MG/2 ML Vial IVP PRN (17:55)
[2017-02-19] MEDS: Latanoprost 0.005% Ophth Soln 2.5 ml Bottle L EYE SCH (20:55)
[2017-02-20] MEDS: Sodium Chloride 0.9% 1,000 ML IV SCH ×3 (01:30→19:18)
[2017-02-20] MEDS: CEFAZOLIN 1 GM, Syringe 2.5 ML in Sterile Water 7.5 ML SLOW IVP SCH ×3 (05:35→22:46)
[2017-02-20 06:23] LABS: Hemoglobin 8.1 g/dL (12.0-16.0); Mean Corpuscular Hemoglobin 29.2 pg (27.0-31.0); Mean Corpuscular Volume 97.2 fl (81.0-99.0); Mean Platelet Volume 10.1 fL (7.4-10.4); Platelet Count 277 thou/uL (130-400); RBC Distribution Width 16.4 % (11.5-14.5); Red Blood Cell (RBC) Count 2.79 mill/uL (4.20-5.40); White Blood Cell (WBC) Count 75.7 thou/uL (4.8-10.8)
[2017-02-20 06:37] LABS: Anion Gap 12 mmol/L (10-20); BUN (Urea Nitrogen) 24 mg/dL (9.8-20.1); Calc. Creatinine Clearance 31 mL/min (70-130); Calcium 7.8 mg/dL (7.8-10.44); Carbon Dioxide 25 mmol/L (23-31); Chloride 116 mmol/L (98-107); Estimated GFR-MDRD 39; Glucose 107 mg/dL (83-110); Magnesium 1.5 mg/dL (1.6-2.6); Sodium 150 mmol/L (136-145)
[2017-02-20 06:48] LABS: Potassium 2.9 mmol/L (3.5-5.1)
[2017-02-20 06:53] LABS: Band 9 % (5-11); Eosinophils 1 % (0-10); Lymphocytes 5 % (21-51); MDiff Complete? YES; Metamyelocyte 4 % (0-0); Monocytes 23 % (0-10); Myelocyte 9 % (0-0); Neutrophil 47 % (42-75); Nucleated RBC 1 % (0); PLT Morphology Comment Appears Adequate
[2017-02-20] MEDS ORDERED: Potassium Chloride 20 MEQ/100 ML PREMIX BAG IVPB SCH (07:30)
[2017-02-20] MEDS ORDERED: Potassium Chloride 20 MEQ in Sodium Chloride 0.9% 250 ML 250 ML IVPB SCH (08:00)
[2017-02-20] MEDS: Dorzolamide HCl 2% Ophth Soln 10 ml Bottle EA EYE SCH ×2 (08:44→21:42)
[2017-02-20] MEDS: Polyethylene Glycol 3350 17 GM Packet PO SCH (08:45)
[2017-02-20] MEDS ORDERED: Magnesium 2 GM/NS 0.9% 100 ML 2 GM in Premix Bag 1 BAG IVPB SCH (08:45)
[2017-02-20] MEDS: Brimonidine Tartrate 0.2% Ophth Soln 5 ml Bottle EA EYE SCH ×2 (08:46→21:42)
[2017-02-20] MEDS: Timolol 0.5% Ophth Soln 5 ml Bottle EA EYE SCH ×2 (08:46→21:42)
[2017-02-20] MEDS: traMADol HCl 50 MG TAB PO PRN (11:18)
--- NOTE | 2017-02-20 11:33 | PRG ---
DATE OF SERVICE: 02/20/2017 Ms. Menendez is feeling okay today. She has a little nausea off and on, but has been passing gas and had bowel movements. She has tolerated her clear liquids as long she takes it slow and thinks that h er stomach would feel better as she had some solid food. She does have some cream of wheat that she is going to try this morning. Her white count has come down slightly, but is still quite elevated at 75,000. Her hemoglobin is down a little bit to 8.1. Potassium is 2.9 and medicine has written for IV replacement. Her magnesium is slightly low at 1.5 and I have written for some supplemental magnes ium as well. Her abdomen is soft and nondistended. Her VENKATA drainage is serosanguineous. She has nor mal to hyperactive bowel sounds. ASSESSMENT: Ileus due to medical issues and anesthesia for her recent hip surgeries. This appears t o be resolving and we will advance her diet slowly as tolerated. No new recommendations.
--- NOTE | 2017-02-20 14:55 | PDOC.PN ---
- Subjective Encounter Start Date: 02/20/17 Encounter Start Time: 11:00 Pt feeling better, less nausea, but still present after eating or drinking. Walked to bathroom with much difficulty. No f/c, no CP or SOB, no abd pain, no D/C, good BMs earlier and passing gas 10 point ROS performed and neg for all systems except as per HPI - Objective MAR Reviewed: Yes Vital Signs & Weight: Vital Signs (12 hours) Temp Pulse Resp BP BP Pulse Ox 02/20/17 08:46 90 133/69 02/20/17 07:45 97.7 F 88 16 94 L 02/20/17 04:33 97.8 F 74 16 148/80 H 98 02/20/17 04:00 97.6 F 90 16 116/66 95 Weight Admit Weight 143 lb Weight 143 lb I&O: 02/19/17 02/20/17 02/21/17 06:59 06:59 06:59 Intake Total 970 2300 Output Total 190 120 Balance 780 2180 Result Diagrams: 02/20/17 05:17 02/20/17 05:17 Radiology Reviewed by me: Yes Phys Exam - Physical Examination Constitutional: NAD HEENT: PERRLA, moist MMs, sclera anicteric, oral pharynx no lesions Neck: no nodes, no JVD, supple, full ROM Respiratory: no wheezing, no rales, no rhonchi, clear to auscultation bilateral Cardiovascular: RRR, no significant murmur, no rub Gastrointestinal: soft, non-tender, no distention, positive bowel sounds Musculoskeletal: pulses present, edema present Neurological: non-focal, normal sensation, moves all 4 limbs Lymphatic: no nodes Psychiatric: normal affect, A&O x 3 Skin: no rash, normal turgor, cap refill <2 seconds Dx/Plan (1) Arthritis of right hip Code(s): M16.11 - UNILATERAL PRIMARY OSTEOARTHRITIS, RIGHT HIP Status: Acute Comment: s/p I&D, bacterial culture neg so far. No path, cyto, tissue. pt feels markedly better. suspect noninfectious, RF neg, ESTEFANIA and ANCA pending. no AFB or fungal cultures or smears. hold abx fo rnow. no other effusions or pain at present. ESR 70s and CRP 15+. Cultures remained negative, fungal cx neg to date, no AFB cultures sent. feels markedly better and able to walk on. Would NOT rx for bacterial infection at this point. TO OR 02/18 for washout and look. WBC trending up, but little in the way of symptoms, but again, would not expect much symptoms after synovectomy (2) Right hip joint effusion Code(s): M25.451 - EFFUSION, RIGHT HIP Status: Acute Comment: drained. Now with hematoma drained, cultures pending. washout 02/18. follow up on findings (3) Myelodysplasia (myelodysplastic syndrome) Code(s): D46.9 - MYELODYSPLASTIC SYNDROME, UNSPECIFIED Status: Chronic Comment: WBC 12k in 11/2016, now 50 up to 69K to 77k to 95K with monocytic predominance. Post op hematoma drainge, back to 80k to 75k. Serum cytology ordered. Dr Linton recommends conservative management and no Bx for now as it likely wont change treatment plan, follow trend. I think she is just very reactive. Will ask oncology to see tomorrow. WE need to make sure her blood dyscrasia has nothing to do with the other issues. Seen by onc toda02/17, BMBx in OR 02/18 pending result. 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 off both. IVF upped by surgery while NPO and NGT to LIWS. Cr down to 1.35 on 02/19 and 1.3 on 02/20 (6) Ileus Code(s): K56.7 - ILEUS, UNSPECIFIED Status: Suspected Comment: KUB negative for overt obstruction, + BM's currently and no emesis, npo x ice chips. surgery following. SBFT showed ileus or PSBO, repeat films neg for high grade obstruction. NGT pulled, diet to advance as toleated. Will add reglan as a propulsive agent (7) Acute blood loss anemia Code(s): D62 - ACUTE POSTHEMORRHAGIC ANEMIA Status: Acute Comment: unsure of source/site. likely hip or bowel. has not shown up form bowel. have not reimaged hip. Dr Saldaña to wash out today. trnasfused 2 units yesterday, up form 6.2 to 10.2, down to 8.8 today post op hematoma drainage - Plan * .
[2017-02-20] MEDS: Acetaminophen 500 MG TAB PO PRN (15:01)
[2017-02-20] MEDS: Latanoprost 0.005% Ophth Soln 2.5 ml Bottle L EYE SCH (21:42)
[2017-02-21] MEDS: Sodium Chloride 0.9% 1,000 ML IV SCH ×3 (02:35→17:57)
[2017-02-21] MEDS: CEFAZOLIN 1 GM, Syringe 2.5 ML in Sterile Water 7.5 ML SLOW IVP SCH ×3 (05:50→20:56)
[2017-02-21 06:25] LABS: Anion Gap 14 mmol/L (10-20); BUN (Urea Nitrogen) 20 mg/dL (9.8-20.1); Calc. Creatinine Clearance 35 mL/min (70-130); Carbon Dioxide 19 mmol/L (23-31); Chloride 117 mmol/L (98-107); Estimated GFR-MDRD 44; Glucose 96 mg/dL (83-110); Magnesium 1.9 mg/dL (1.6-2.6); Potassium 3.5 mmol/L (3.5-5.1); Sodium 146 mmol/L (136-145)
[2017-02-21 06:27] LABS: Hemoglobin 9.3 g/dL (12.0-16.0); Mean Corpuscular HGB CONC 29.6 g/dL (32.0-36.0); Mean Corpuscular Hemoglobin 28.9 pg (27.0-31.0); Mean Corpuscular Volume 97.8 fl (81.0-99.0); Platelet Count 268 thou/uL (130-400); RBC Distribution Width 16.5 % (11.5-14.5); Red Blood Cell (RBC) Count 3.23 mill/uL (4.20-5.40); White Blood Cell (WBC) Count 86.8 thou/uL (4.8-10.8)
[2017-02-21 06:38] LABS: Anisocytosis SLIGHT = 6-15 cells (100X) (0-5/hpf); Band 19 % (5-11); Lymphocytes 6 % (21-51); MDiff Complete? YES; Metamyelocyte 2 % (0-0); Monocytes 26 % (0-10); Myelocyte 4 % (0-0); Neutrophil 43 % (42-75); Nucleated RBC 1 % (0); Polychromasia SLIGHT = 2-3 cells (100X) (0-2/hpf)
[2017-02-21] MEDS: Brimonidine Tartrate 0.2% Ophth Soln 5 ml Bottle EA EYE SCH ×2 (09:29→20:57)
[2017-02-21] MEDS: Dorzolamide HCl 2% Ophth Soln 10 ml Bottle EA EYE SCH ×2 (09:29→20:57)
[2017-02-21] MEDS: Polyethylene Glycol 3350 17 GM Packet PO SCH (09:30)
[2017-02-21] MEDS: Timolol 0.5% Ophth Soln 5 ml Bottle EA EYE SCH ×2 (09:30→20:57)
[2017-02-21] MEDS: traMADol HCl 50 MG TAB PO PRN (09:32)
--- NOTE | 2017-02-21 12:06 | PDOC.PN ---
- Subjective Encounter Start Date: 02/21/17 Encounter Start Time: 09:15 Pt lying in bed, tried regular food last nigh,t but very nauseated. labs stable , WBC up, Hgb up, Cr down to1.13. Case discussed with Dr Saldaña face to face. doing well from an ortho perspective, GI function seems to b eher major issue now. Surgery following. diet advanced as tolerated, needs to walk more. No F/c, no diarrhea, had several BMs last evening. no other acute overnight events - Objective MAR Reviewed: Yes Vital Signs & Weight: Vital Signs (12 hours) Temp Pulse Resp BP Pulse Ox 02/21/17 09:30 101 H 02/21/17 08:00 97.5 F L 101 H 20 97 02/21/17 07:45 97.5 F L 101 H 20 157/82 H 97 02/21/17 04:59 98.5 F 96 16 149/73 H 93 L 02/21/17 00:49 98.4 F 92 15 131/72 91 L Weight Admit Weight 143 lb Weight 143 lb I&O: 02/20/17 02/21/17 02/22/17 06:59 06:59 06:59 Intake Total 2300 1600 Output Total 120 20 Balance 2180 1580 Result Diagrams: 02/21/17 05:33 02/21/17 05:33 Radiology Reviewed by me: Yes Phys Exam - Physical Examination Constitutional: NAD HEENT: PERRLA, moist MMs, sclera anicteric, oral pharynx no lesions Neck: no nodes, no JVD, supple, full ROM Respiratory: no wheezing, no rales, no rhonchi, clear to auscultation bilateral Cardiovascular: RRR, no significant murmur, no rub Gastrointestinal: soft, non-tender, no distention, positive bowel sounds Musculoskeletal: pulses present, edema present Neurological: non-focal, normal sensation, moves all 4 limbs Lymphatic: no nodes Psychiatric: normal affect, A&O x 3 Skin: no rash, normal turgor, cap refill <2 seconds Dx/Plan (1) Arthritis of right hip Code(s): M16.11 - UNILATERAL PRIMARY OSTEOARTHRITIS, RIGHT HIP Status: Acute Comment: s/p I&D, bacterial culture neg so far. No path, cyto, tissue. pt feels markedly better. suspect noninfectious, RF neg, ESTEFANIA and ANCA pending. no AFB or fungal cultures or smears. hold abx fo rnow. no other effusions or pain at present. ESR 70s and CRP 15+. Cultures remained negative, fungal cx neg to date, no AFB cultures sent. feels markedly better and able to walk on. Would NOT rx for bacterial infection at this point. TO OR 02/18 for washout and look. WBC trending up, but little in the way of symptoms, but again, would not expect much symptoms after synovectomy (2) Right hip joint effusion Code(s): M25.451 - EFFUSION, RIGHT HIP Status: Acute Comment: drained. Now with hematoma drained, cultures pending. washout 02/18. follow up on findings. Cultures remaining negative (3) Myelodysplasia (myelodysplastic syndrome) Code(s): D46.9 - MYELODYSPLASTIC SYNDROME, UNSPECIFIED Status: Chronic Comment: WBC 12k in 11/2016, now 50 up to 69K to 77k to 95K with monocytic predominance. Post op hematoma drainge, back to 80k to 75k. Serum cytology ordered. Dr Linton recommends conservative management and no Bx for now as it likely wont change treatment plan, follow trend. I think she is just very reactive. Oncology has seen, BMBx in OR 02/18 pending result. 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 off both. IVF upped by surgery while NPO and NGT to LIWS. Cr down to 1.35 on 02/19 and 1.3 on 02/20, 1.13 on 02/21 (6) Ileus Code(s): K56.7 - ILEUS, UNSPECIFIED Status: Suspected Comment: KUB negative for overt obstruction, + BM's currently and no emesis, npo x ice chips. surgery following. SBFT showed ileus or PSBO, repeat films neg for high grade obstruction. NGT pulled, diet to advance as tolerated. 02/21 Will add reglan as a propulsive agent (7) Acute blood loss anemia Code(s): D62 - ACUTE POSTHEMORRHAGIC ANEMIA Status: Acute Comment: unsure of source/site. likely hip or bowel. has not shown up form bowel. have not reimaged hip. Dr Saldaña to wash out today. trnasfused 2 units yesterday, up form 6.2 to 10.2, down to 8.8 today post op hematoma drainage - Plan cont current plan of care, plan discussed w/ family, PT/OT, out of bed/ambulate * .
[2017-02-21] MEDS ORDERED: Metoclopramide HCl 10 MG/2 ML VIAL IVP SCH (12:15)
--- NOTE | 2017-02-21 15:20 | PRG ---
DATE OF SERVICE: 02/21/2017 Inge Menendez is in the surgical floor. The patient's NG tube has been removed when she had no res idual. She has experienced emesis this morning. She was having liquid stools. She has had a long pr ior history of intermittent bowel problems and distention and small bowel follow-through, although tr ansit was within 2-3 hours. She still has stagnant contrast in her small bowel. I believe that she has a partial small-bowel obstruction from her hysterectomy. OBJECTIVE: LUNGS: Clear to auscultation. CARDIAC: Regular rate and rhythm. ABDOMEN: Slightly distended, slightly tympanitic, but much improved from previously. VITAL SIGNS: Temperature 97.7 degrees, pulse 99, blood pressure 145/81. Small bowel follow-through on 02/17/2017 and 02/19 abdominal x-rays reveals stagnation contrast into her small bowel. ASSESSMENT AND PLAN: 1. Leukocytosis 86,000 today, down from 94,000 three days ago. 2. Partial bowel obstruction. She is having some emesis this morning, but having liquid stools. We will plan to repeat abdominal x-rays today. We will discuss the situation with the family.
--- NOTE | 2017-02-21 15:53 | RAD ---
SUPINE AND UPRIGHT VIEWS OF THE ABDOMEN: HISTORY: Small bowel obstruction. FINDINGS: Supine and upright views of the abdomen are obtained. Abnormally dilated loops of small bowel with numerous air fluid levels seen. This is concerning for bowel obstruction or ileus. Small bowel dilatation was present on the patient's previous exam. Some of the small bowel loops more distally were of normal caliber; however, they appear to be somewhat d ilated now with more air fluid levels seen. Gas is seen in the colon suggesting possible intermittent obstruction or partial obstruction. Right proximal lower extremity surgical drains in place. IMPRESSION: Small bowel dilatation and air fluid levels concerning for bowel obstruction or ileus. POS: ANNAMARIA
[2017-02-21] MEDS: Metoclopramide HCl 10 MG TAB PO SCH ×2 (17:56→20:57)
[2017-02-21] MEDS: Latanoprost 0.005% Ophth Soln 2.5 ml Bottle L EYE SCH (20:57)
[2017-02-22] MEDS: Sodium Chloride 0.9% 1,000 ML IV SCH ×3 (02:10→17:10)
[2017-02-22] MEDS: CEFAZOLIN 1 GM, Syringe 2.5 ML in Sterile Water 7.5 ML SLOW IVP SCH ×3 (05:03→20:42)
[2017-02-22 06:26] LABS: Hemoglobin 8.5 g/dL (12.0-16.0); Mean Corpuscular HGB CONC 29.6 g/dL (32.0-36.0); Mean Corpuscular Hemoglobin 28.8 pg (27.0-31.0); Mean Corpuscular Volume 97.3 fl (81.0-99.0); Mean Platelet Volume 10.2 fL (7.4-10.4); Platelet Count 245 thou/uL (130-400); RBC Distribution Width 16.9 % (11.5-14.5); Red Blood Cell (RBC) Count 2.94 mill/uL (4.20-5.40); White Blood Cell (WBC) Count 81.7 thou/uL (4.8-10.8)
[2017-02-22 06:41] LABS: Anion Gap 12 mmol/L (10-20); BUN (Urea Nitrogen) 20 mg/dL (9.8-20.1); Calc. Creatinine Clearance 36 mL/min (70-130); Calcium 8.1 mg/dL (7.8-10.44); Carbon Dioxide 19 mmol/L (23-31); Chloride 115 mmol/L (98-107); Estimated GFR-MDRD 45; Glucose 100 mg/dL (83-110); Potassium 3.4 mmol/L (3.5-5.1); Sodium 143 mmol/L (136-145)
[2017-02-22 07:36] LABS: Anisocytosis SLIGHT = 6-15 cells (100X) (0-5/hpf); Band 20 % (5-11); Eosinophils 1 % (0-10); Lymphocytes 18 % (21-51); MDiff Complete? YES; Metamyelocyte 6 % (0-0); Monocytes 21 % (0-10); Myelocyte 4 % (0-0); Neutrophil 28 % (42-75); Nucleated RBC 1 % (0); PLT Morphology Comment Appears Adequate; Polychromasia MODERATE = 3-4 cells (100X) (0-2/hpf); Reactive Lymphocytes 1 % (0-10)
[2017-02-22] MEDS: Metoclopramide HCl 10 MG TAB PO SCH ×4 (07:52→20:42)
[2017-02-22] MEDS: Polyethylene Glycol 3350 17 GM Packet PO SCH (08:51)
[2017-02-22] MEDS: Timolol 0.5% Ophth Soln 5 ml Bottle EA EYE SCH ×2 (08:52→20:43)
[2017-02-22] MEDS: Dorzolamide HCl 2% Ophth Soln 10 ml Bottle EA EYE SCH ×2 (08:52→20:43)
[2017-02-22] MEDS: Brimonidine Tartrate 0.2% Ophth Soln 5 ml Bottle EA EYE SCH ×2 (08:52→20:43)
--- NOTE | 2017-02-22 13:07 | PDOC.PN ---
- Subjective Encounter Start Date: 02/22/17 Encounter Start Time: 11:00 Ms Gemma borrero on rounds. She does not look well today. No complaints other than abd pain and nasuea. Hip okay, no F/c, no D/C, no cough or sputum, no GI bleeding PT in to see pt, will try to get up to a chair. Abd xray yesterday with PSBO, SBO or ileus. belly distended today, no vomiting this monring yet. 10 point ROS performed and neg for all systems except as per HPI - Objective MAR Reviewed: Yes Vital Signs & Weight: Vital Signs (12 hours) Temp Pulse Resp BP BP Pulse Ox 02/22/17 08:52 101 H 148/67 H 02/22/17 08:25 98 F 101 H 16 148/67 H 96 02/22/17 05:13 98.0 F 104 H 18 151/74 H 93 L Weight Admit Weight 143 lb Weight 143 lb I&O: 02/21/17 02/22/17 02/23/17 06:59 06:59 06:59 Intake Total 1600 3750 Output Total 20 105 Balance 1580 3645 Result Diagrams: 02/22/17 05:47 02/22/17 05:47 Radiology Reviewed by me: Yes EKG Reviewed by me: Yes Phys Exam - Physical Examination Constitutional: NAD HEENT: PERRLA, moist MMs, sclera anicteric, oral pharynx no lesions Neck: no nodes, no JVD, supple, full ROM Respiratory: no wheezing, no rales, no rhonchi, clear to auscultation bilateral Cardiovascular: RRR, no rub HSM apex stable Gastrointestinal: soft minimally and diffusely tender, distended and tympanitic, bowel sounds rare Musculoskeletal: pulses present, edema present Neurological: non-focal, normal sensation, moves all 4 limbs Lymphatic: no nodes Deviation from normal: sleepy, OX3 Skin: no rash, normal turgor, cap refill <2 seconds Dx/Plan (1) Arthritis of right hip Code(s): M16.11 - UNILATERAL PRIMARY OSTEOARTHRITIS, RIGHT HIP Status: Acute Comment: s/p I&D, bacterial culture neg so far. No path, cyto, tissue. pt feels markedly better. suspect noninfectious, RF neg, ESTEFANIA and ANCA pending. no AFB or fungal cultures or smears. hold abx fo rnow. no other effusions or pain at present. ESR 70s and CRP 15+. Cultures remained negative, fungal cx neg to date, no AFB cultures sent. feels markedly better and able to walk on. Would NOT rx for bacterial infection at this point. TO OR 02/18 for washout and look. WBC trending up, but little in the way of symptoms, but again, would not expect much symptoms after synovectomy (2) Right hip joint effusion Code(s): M25.451 - EFFUSION, RIGHT HIP Status: Acute Comment: drained. Now with hematoma drained, cultures pending. washout 02/18. follow up on findings. Cultures remaining negative (3) Myelodysplasia (myelodysplastic syndrome) Code(s): D46.9 - MYELODYSPLASTIC SYNDROME, UNSPECIFIED Status: Chronic Comment: WBC 12k in 11/2016, now 50 up to 69K to 77k to 95K with monocytic predominance. Post op hematoma drainge, back to 80k to 75k. Serum cytology ordered. Dr Linton recommends conservative management and no Bx for now as it likely wont change treatment plan, follow trend. I think she is just very reactive. Oncology has seen, BMBx in OR 02/18 pending result. 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 BMBx back on 02/21, onc reviewed. Just reactive MDS per Dr Linton, Onc s/o'd (4) Hypothyroidism Code(s): E03.9 - HYPOTHYROIDISM, UNSPECIFIED Status: Chronic Qualifiers: Hypothyroidism type: acquired Qualified Code(s): E03.9 - Hypothyroidism, unspecified Comment: Continue Levothyroxine (5) ANTOINETTE (acute kidney injury) Code(s): N17.9 - ACUTE KIDNEY FAILURE, UNSPECIFIED Status: Acute Comment: I think this was a Vanc+Zosyn effect. off both. IVF upped by surgery while NPO and NGT to LIWS. Cr down to 1.35 on 02/19 and 1.3 on 02/20, 1.16 on 02/21 to 1.13 02/22 (6) Ileus Code(s): K56.7 - ILEUS, UNSPECIFIED Status: Suspected Comment: KUB negative for overt obstruction, + BM's currently and no emesis, npo x ice chips. surgery following. SBFT showed ileus or PSBO, repeat films neg for high grade obstruction. NGT pulled, diet to advance as tolerated. 02/21 added reglan as a propulsive agent, not much help (7) Acute blood loss anemia Code(s): D62 - ACUTE POSTHEMORRHAGIC ANEMIA Status: Acute Comment: unsure of source/site. likely hip or bowel. has not shown up form bowel. have not reimaged hip. Dr Saldaña to wash out today. trnasfused 2 units yesterday, up form 6.2 to 10.2, down to 8.5 today post op hematoma drainage - Plan cont current plan of care, PT/OT, out of bed/ambulate * . follow up on surgery recommendations, belly is not improving much.
--- NOTE | 2017-02-22 17:42 | PRG ---
DATE OF SERVICE: 02/22/2017 SUBJECTIVE: Ms. Menendez yesterday had an abdominal x-ray revealing gastric colon of distended loops of small bowel and air fluid levels. All the contrast from the small bowel follow through performed 04/20/2016 has passed out by 04/24/2016. She still had stagnant contrast in her small bowel on [facility] abdominal x-rays on 02/19/2017. The patient has been limited by speech therapy has to oral intak e for safe swallowing. The patient states she has a fear of swallowing. She is really only eating a bout third of her meals and that is pureed. She has between the meals snacks, but she does not like the Ensure and has been drinking chocolate milk. I have asked her nurse to find a supplement that is palatable to her. OBJECTIVE: LUNGS: Clear to auscultation. CARDIAC: Regular rate and rhythm without murmur or gallop. ABDOMEN: Slightly distended, tympanitic, but is soft and there are bowel sounds present. She is pas sing stool. ASSESSMENT AND PLAN: Partial bowel obstruction, no surgical intervention warranted at this time. Co ntinue dietary efforts. At this point, I will see her as needed. Please call if she develops nausea or vomiting, and is unable to tolerate orals in which case laparoscopic or open laparotomy with adhe siolysis could be performed, but at this point, she is deconditioned and I think if she can tolerate her diet is best to avoid this. She has had this problem for many months, and I do not think interve ntion at this time is warranted, although it may be necessary in the future. Please call if needed.
[2017-02-22] MEDS: Latanoprost 0.005% Ophth Soln 2.5 ml Bottle L EYE SCH (20:42)
[2017-02-23] MEDS: Sodium Chloride 0.9% 1,000 ML IV SCH ×3 (03:29→18:20)
[2017-02-23] MEDS: CEFAZOLIN 1 GM, Syringe 2.5 ML in Sterile Water 7.5 ML SLOW IVP SCH ×3 (05:35→22:37)
[2017-02-23] MEDS: Timolol 0.5% Ophth Soln 5 ml Bottle EA EYE SCH ×2 (09:02→22:39)
[2017-02-23] MEDS: Metoclopramide HCl 10 MG TAB PO SCH ×4 (09:02→22:37)
[2017-02-23] MEDS: Polyethylene Glycol 3350 17 GM Packet PO SCH (09:02)
[2017-02-23] MEDS: Brimonidine Tartrate 0.2% Ophth Soln 5 ml Bottle EA EYE SCH ×2 (09:03→22:41)
[2017-02-23] MEDS: Dorzolamide HCl 2% Ophth Soln 10 ml Bottle EA EYE SCH ×2 (09:04→22:39)
--- NOTE | 2017-02-23 15:40 | PDOC.PN ---
- Subjective Encounter Start Date: 02/23/17 Encounter Start Time: 15:38 Subjective: Seen and examined no new complaint - Objective Vital Signs & Weight: Vital Signs (12 hours) Temp Pulse Resp BP BP Pulse Ox 02/23/17 13:19 97.6 F 89 20 121/69 96 02/23/17 09:18 97.9 F 77 20 161/71 H 93 L 02/23/17 09:02 98 161/71 H 02/23/17 08:00 97.9 F 77 20 93 L Weight Admit Weight 143 lb Weight 143 lb I&O: 02/22/17 02/23/17 02/24/17 06:59 06:59 06:59 Intake Total 3750 3650 Output Total 105 30 Balance 3645 3620 Result Diagrams: 02/22/17 05:47 02/22/17 05:47 Phys Exam - Physical Examination Constitutional: NAD HEENT: PERRLA, moist MMs, sclera anicteric, TM's clear Neck: no nodes, no JVD, supple, full ROM Respiratory: no wheezing, no rales, no rhonchi Cardiovascular: RRR, no significant murmur, no rub Gastrointestinal: soft, non-tender Musculoskeletal: no edema, pulses present Dx/Plan (1) ANTOINETTE (acute kidney injury) Code(s): N17.9 - ACUTE KIDNEY FAILURE, UNSPECIFIED Status: Acute Comment: I think this was a Vanc+Zosyn effect. off both. IVF upped by surgery while NPO and NGT to LIWS. Cr down to 1.35 on 02/19 and 1.3 on 02/20, 1.16 on 02/21 to 1.13 02/22 (2) Acute blood loss anemia Code(s): D62 - ACUTE POSTHEMORRHAGIC ANEMIA Status: Acute Comment: unsure of source/site. likely hip or bowel. has not shown up form bowel. have not reimaged hip. Dr Saldaña to wash out today. trnasfused 2 units yesterday, up form 6.2 to 10.2, down to 8.5 today post op hematoma drainage (3) Arthritis of right hip Code(s): M16.11 - UNILATERAL PRIMARY OSTEOARTHRITIS, RIGHT HIP Status: Acute Comment: s/p I&D, bacterial culture neg so far. No path, cyto, tissue. pt feels markedly better. suspect noninfectious, RF neg, ESTEFANIA and ANCA pending. no AFB or fungal cultures or smears. hold abx fo rnow. no other effusions or pain at present. ESR 70s and CRP 15+. Cultures remained negative, fungal cx neg to date, no AFB cultures sent. feels markedly better and able to walk on. Would NOT rx for bacterial infection at this point. TO OR 02/18 for washout and look. WBC trending up, but little in the way of symptoms, but again, would not expect much symptoms after synovectomy (4) Normocytic anemia Code(s): D64.9 - ANEMIA, UNSPECIFIED Status: Acute Comment: Likely due to myelodysplastic process, transfuse 1u PRBC's today, repeat CBC in am (5) Right hip joint effusion Code(s): M25.451 - EFFUSION, RIGHT HIP Status: Acute Comment: drained. Now with hematoma drained, cultures pending. washout 02/18. follow up on findings. Cultures remaining negative (6) Septic hip Code(s): M00.9 - PYOGENIC ARTHRITIS, UNSPECIFIED Status: Acute Comment: s/p I&D POD #7, local care, IV Vancomycin and Zosyn, hold Vancomycin and repeat Vanc level due to elevated value, hold Vancomycin 24h (7) Hypothyroidism Code(s): E03.9 - HYPOTHYROIDISM, UNSPECIFIED Status: Chronic Qualifiers: Hypothyroidism type: acquired Qualified Code(s): E03.9 - Hypothyroidism, unspecified Comment: Continue Levothyroxine - Plan continue antibiotics, PT/OT, health care social worker Dispo challenge * .
[2017-02-23] MEDS: Latanoprost 0.005% Ophth Soln 2.5 ml Bottle L EYE SCH (22:39)
[2017-02-24] MEDS: Sodium Chloride 0.9% 1,000 ML IV SCH ×2 (03:34→15:33)
[2017-02-24] MEDS: Metoclopramide HCl 10 MG TAB PO SCH ×4 (05:42→22:20)
[2017-02-24] MEDS: CEFAZOLIN 1 GM, Syringe 2.5 ML in Sterile Water 7.5 ML SLOW IVP SCH ×3 (05:42→23:57)
[2017-02-24] MEDS ORDERED: Albuterol Sulfate 2.5 mg/3 ml Neb NEB PRN (07:21)
[2017-02-24] MEDS ORDERED: Albuterol Sulfate 2.5 mg/3 ml Neb NEB SCH (07:30)
[2017-02-24] MEDS: Brimonidine Tartrate 0.2% Ophth Soln 5 ml Bottle EA EYE SCH ×2 (10:42→22:20)
[2017-02-24] MEDS: Dorzolamide HCl 2% Ophth Soln 10 ml Bottle EA EYE SCH ×2 (10:43→22:20)
[2017-02-24] MEDS: Polyethylene Glycol 3350 17 GM Packet PO SCH (10:43)
[2017-02-24] MEDS: Timolol 0.5% Ophth Soln 5 ml Bottle EA EYE SCH ×2 (10:44→22:19)
--- NOTE | 2017-02-24 16:39 | PDOC.PN ---
- Subjective Encounter Start Date: 02/24/17 Encounter Start Time: 16:05 Subjective: f/u for protracted hospital stay with ? septic R hip post I&D. Now with -: partial ileus/SBO resolving and taking po. Pt with MDS with WBC >80K and no -: current evidence of active infection. - Objective MAR Reviewed: Yes Vital Signs & Weight: Vital Signs (12 hours) Temp Pulse Resp BP BP Pulse Ox 02/24/17 14:04 96 24 H 02/24/17 11:20 98.1 F 95 20 147/64 H 94 L 02/24/17 10:44 103 H 146/76 H 02/24/17 08:33 95 02/24/17 08:24 103 H 20 95 02/24/17 08:10 97.8 F 105 H 20 146/76 H 95 02/24/17 08:00 97.8 F 105 H 20 95 Weight Admit Weight 143 lb Weight 143 lb I&O: 02/23/17 02/24/17 02/25/17 06:59 06:59 06:59 Intake Total 3650 880 Output Total 30 30 Balance 3620 850 Result Diagrams: 02/22/17 05:47 02/22/17 05:47 Additional Labs: Laboratory Tests 02/19/17 02/19/17 02/20/17 04:46 04:46 05:17 WBC 80.2 H* Potassium 3.0 L 2.9 L* Creatinine 1.35 H 1.30 H 02/20/17 02/21/17 02/21/17 05:17 05:33 05:33 WBC 75.7 H* 86.8 H* Potassium 3.5 Creatinine 1.16 H Phys Exam - Physical Examination alert, responds to questions HEENT: PERRLA, oral pharynx no lesions Neck: no JVD, supple few scattered wheezes and coarse sounds Cardiovascular: RRR mild distention Gastrointestinal: soft, non-tender, positive bowel sounds Musculoskeletal: pulses present, edema present Neurological: normal sensation, moves all 4 limbs Lymphatic: no nodes Skin: normal turgor, cap refill <2 seconds Dx/Plan (1) Ileus Code(s): K56.7 - ILEUS, UNSPECIFIED Status: Suspected Comment: KUB negative for overt obstruction, + BM's currently and no emesis, npo x ice chips. surgery following. SBFT showed ileus or PSBO, repeat films neg for high grade obstruction. NGT pulled, diet to advance as tolerated. 02/21 added reglan as a propulsive agent, advancing diet (2) Septic hip Code(s): M00.9 - PYOGENIC ARTHRITIS, UNSPECIFIED Status: Acute Comment: Local care, Continue Ancef but consider d/c in next 24h (3) Status post incision and drainage Code(s): Z98.890 - OTHER SPECIFIED POSTPROCEDURAL STATES Status: Acute Comment: see above #1 (4) Hypothyroidism Code(s): E03.9 - HYPOTHYROIDISM, UNSPECIFIED Status: Chronic Qualifiers: Hypothyroidism type: acquired Qualified Code(s): E03.9 - Hypothyroidism, unspecified Comment: Continue Levothyroxine (5) Myelodysplasia (myelodysplastic syndrome) Code(s): D46.9 - MYELODYSPLASTIC SYNDROME, UNSPECIFIED Status: Chronic Comment: Oncology has seen, BMBx in OR 02/18 pending result. 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 BMBx back on 02/21, onc reviewed. Just reactive MDS per Dr Linton, Onc s/o'd (6) Normocytic anemia Code(s): D64.9 - ANEMIA, UNSPECIFIED Status: Acute Comment: Likely due to myelodysplastic process, transfuse 1u PRBC's today, repeat CBC in am (7) ANTOINETTE (acute kidney injury) Code(s): N17.9 - ACUTE KIDNEY FAILURE, UNSPECIFIED Status: Acute Comment: I think this was a Vanc+Zosyn effect. off both. IVF upped by surgery while NPO and NGT to LIWS. Cr down to 1.35 on 02/19 and 1.3 on 02/20, 1.16 on 02/21 to 1.13 02/22. IVF's d/c'd - Plan continue antibiotics, PT/OT, out of bed/ambulate, DVT proph w/SCDs Continue supportive mgmt -: Consider d/c Ancef in 24h -: PT for mobilization/OOB -: Nutritional support with fiber restricted diet -: Renal with High Protein diet * Likely to inpt rehab in 48h
[2017-02-24] MEDS: Latanoprost 0.005% Ophth Soln 2.5 ml Bottle L EYE SCH (22:20)
[2017-02-25] MEDS: CEFAZOLIN 1 GM, Syringe 2.5 ML in Sterile Water 7.5 ML SLOW IVP SCH ×3 (06:08→22:33)
[2017-02-25] MEDS: Metoclopramide HCl 10 MG TAB PO SCH ×4 (06:09→22:33)
--- NOTE | 2017-02-25 07:41 | PRG ---
DATE OF SERVICE: 02/25/2017 SUBJECTIVE: The patient is doing well. She seems a little more perky this morning, awake, answerin g questions, less somnolent than she has been in the last few days. No new complaints. OBJECTIVE: VITAL SIGNS: Stable. She is afebrile. I&O's are okay. Her p.o. intake is reasonable, but it could be higher. We have encouraged her to increase this. HIP: Right hip drains and dressing are both intact. Drains are down to 30. We will get those disco ntinued today. Moving bilateral lower extremities well. ASSESSMENT: Stable. Drains out. Continue to work on activity. Medicine following.
[2017-02-25] MEDS: Acetaminophen 500 MG TAB PO PRN (08:55)
[2017-02-25] MEDS: Brimonidine Tartrate 0.2% Ophth Soln 5 ml Bottle EA EYE SCH ×2 (08:56→22:40)
[2017-02-25] MEDS: Dorzolamide HCl 2% Ophth Soln 10 ml Bottle EA EYE SCH ×2 (08:56→22:39)
[2017-02-25] MEDS: Timolol 0.5% Ophth Soln 5 ml Bottle EA EYE SCH ×2 (08:56→22:39)
[2017-02-25] MEDS: Polyethylene Glycol 3350 17 GM Packet PO SCH (08:57)
--- NOTE | 2017-02-25 11:02 | RAD ---
CHEST 1 VIEW: Date: 02/25/17 HISTORY: Shortness of breath. COMPARISON: Chest radiograph from 02/15/17. FINDINGS: New extensive perihilar air space opacities. Layering effusions. No pneumothorax. IMPRESSION: Large effusions and perihilar opacities concerning for infection. This is markedly progressed from th e 02/15/17 examination. Follow-up recommended. POS: [facility]
--- NOTE | 2017-02-25 13:15 | PDOC.PN ---
- Subjective Encounter Start Date: 02/25/17 Encounter Start Time: 13:05 Subjective: f/u for MDS and septic right hip. Drains removed from R hip today. -: WBC remains elevated >80K. Pt feels weak and eating small amounts -: mainly liquids. - Objective MAR Reviewed: Yes Vital Signs & Weight: Vital Signs (12 hours) Temp Pulse Resp BP BP Pulse Ox 02/25/17 11:50 97.9 F 91 20 122/68 92 L 02/25/17 08:56 105 H 111/64 02/25/17 08:30 97.5 F L 83 20 125/72 92 L 02/25/17 08:00 97.5 F L 83 20 92 L 02/25/17 03:26 22 H Weight Admit Weight 143 lb Weight 143 lb I&O: 02/24/17 02/25/17 02/26/17 06:59 06:59 06:59 Intake Total 880 580 Output Total 30 50 Balance 850 530 Result Diagrams: 02/22/17 05:47 02/22/17 05:47 Phys Exam - Physical Examination tired-appearing, responsive HEENT: PERRLA, oral pharynx no lesions Neck: no JVD, supple Respiratory: no wheezing, clear to auscultation bilateral Cardiovascular: RRR Gastrointestinal: soft, non-tender, no distention, positive bowel sounds Musculoskeletal: pulses present, edema present Neurological: normal sensation, moves all 4 limbs Skin: normal turgor, cap refill <2 seconds Dx/Plan (1) Ileus Code(s): K56.7 - ILEUS, UNSPECIFIED Status: Suspected Comment: KUB negative for overt obstruction, + BM's currently and no emesis, npo x ice chips. surgery following. SBFT showed ileus or PSBO, repeat films neg for high grade obstruction. NGT pulled, diet to advance as tolerated. 02/21 added reglan as a propulsive agent, advancing diet (2) Septic hip Code(s): M00.9 - PYOGENIC ARTHRITIS, UNSPECIFIED Status: Acute Comment: Local care, Continue Ancef but consider d/c in next 24h (3) Status post incision and drainage Code(s): Z98.890 - OTHER SPECIFIED POSTPROCEDURAL STATES Status: Acute Comment: see above #1 (4) Hypothyroidism Code(s): E03.9 - HYPOTHYROIDISM, UNSPECIFIED Status: Chronic Qualifiers: Hypothyroidism type: acquired Qualified Code(s): E03.9 - Hypothyroidism, unspecified Comment: Continue Levothyroxine (5) Myelodysplasia (myelodysplastic syndrome) Code(s): D46.9 - MYELODYSPLASTIC SYNDROME, UNSPECIFIED Status: Chronic Comment: Oncology has seen, BMBx in OR 02/18 pending result. 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 BMBx back on 02/21, onc reviewed. Just reactive MDS per Dr Linton, Onc s/o'd (6) Normocytic anemia Code(s): D64.9 - ANEMIA, UNSPECIFIED Status: Acute Comment: Likely due to myelodysplastic process, transfuse 1u PRBC's today, repeat CBC in am (7) ANTOINETTE (acute kidney injury) Code(s): N17.9 - ACUTE KIDNEY FAILURE, UNSPECIFIED Status: Acute Comment: I think this was a Vanc+Zosyn effect. off both. IVF upped by surgery while NPO and NGT to LIWS. Cr down to 1.35 on 02/19 and 1.3 on 02/20, 1.16 on 02/21 to 1.13 02/22. 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
[2017-02-25] MEDS ORDERED: Furosemide 20 MG/2 ML VIAL SLOW IVP SCH (13:30)
[2017-02-25] MEDS: Latanoprost 0.005% Ophth Soln 2.5 ml Bottle L EYE SCH (22:40)
[2017-02-26] MEDS: CEFAZOLIN 1 GM, Syringe 2.5 ML in Sterile Water 7.5 ML SLOW IVP SCH ×3 (05:59→21:35)
[2017-02-26 06:30] LABS: Anion Gap 11 mmol/L (10-20); BUN (Urea Nitrogen) 21 mg/dL (9.8-20.1); Calc. Creatinine Clearance 39 mL/min (70-130); Calcium 8.1 mg/dL (7.8-10.44); Carbon Dioxide 26 mmol/L (23-31); Chloride 114 mmol/L (98-107); Estimated GFR-MDRD 50; Glucose 111 mg/dL (83-110); Sodium 148 mmol/L (136-145)
[2017-02-26 06:43] LABS: Potassium 2.6 mmol/L (3.5-5.1)
[2017-02-26] MEDS ORDERED: Furosemide 20 MG/2 ML VIAL SLOW IVP SCH (09:00)
[2017-02-26] MEDS ORDERED: Potassium Chloride 20 MEQ TAB PO SCH (09:30)
[2017-02-26] MEDS: Metoclopramide HCl 10 MG TAB PO SCH ×4 (09:42→21:17)
[2017-02-26] MEDS: Dorzolamide HCl 2% Ophth Soln 10 ml Bottle EA EYE SCH ×2 (09:42→21:16)
[2017-02-26] MEDS: Brimonidine Tartrate 0.2% Ophth Soln 5 ml Bottle EA EYE SCH ×2 (09:43→21:16)
[2017-02-26] MEDS: Timolol 0.5% Ophth Soln 5 ml Bottle EA EYE SCH ×2 (09:43→21:16)
[2017-02-26 13:03] LABS: Hemoglobin 8.9 g/dL (12.0-16.0); Mean Corpuscular HGB CONC 29.7 g/dL (32.0-36.0); Mean Corpuscular Hemoglobin 28.9 pg (27.0-31.0); Mean Corpuscular Volume 97.4 fl (81.0-99.0); Mean Platelet Volume 11.9 fL (7.4-10.4); Platelet Count 201 thou/uL (130-400); RBC Distribution Width 17.8 % (11.5-14.5); Red Blood Cell (RBC) Count 3.08 mill/uL (4.20-5.40)
[2017-02-26 13:19] LABS: Band 15 % (5-11); Blast 1 % (0-0); Hypochromia SLIGHT = 6-15 cells (100X) (0-5/hpf); Lymphocytes 5 % (21-51); MDiff Complete? YES; Metamyelocyte 7 % (0-0); Monocytes 40 % (0-10); Myelocyte 7 % (0-0); Neutrophil 23 % (42-75); Nucleated RBC 4 % (0); PLT Morphology Comment Appears Adequate; Polychromasia MODERATE = 3-4 cells (100X) (0-2/hpf); Reactive Lymphocytes 2 % (0-10); Reflex for Review?? NO
[2017-02-26] MEDS: Polyethylene Glycol 3350 17 GM Packet PO SCH (15:49)
[2017-02-26] MEDS: Potassium Chloride 20 MEQ TAB PO SCH ×2 (15:50→21:17)
--- NOTE | 2017-02-26 19:25 | PDOC.PN ---
- Subjective Encounter Start Date: 02/26/17 Encounter Start Time: 19:00 Subjective: f/u for septic R hip effusion s/p I&D with drain placement now removed -: Pt ambulated about 100ft today. Remains weak. K+ level 2.6 now receiving -: KCL replacement. Plan for [facility] transfer when K+ stable. - Objective MAR Reviewed: Yes Vital Signs & Weight: Vital Signs (12 hours) Temp Pulse Resp BP BP Pulse Ox 02/26/17 09:43 105 H 151/73 H 02/26/17 08:00 98.1 F 105 H 18 151/73 H 93 L Weight Admit Weight 143 lb Weight 143 lb I&O: 02/25/17 02/26/17 02/27/17 06:59 06:59 06:59 Intake Total 580 400 Output Total 50 10 Balance 530 390 Result Diagrams: 02/26/17 12:48 02/26/17 04:59 Additional Labs: Microbiology 02/04/17 20:11 Hip - Right Bacterial Culture - Preliminary 02/04/17 20:11 Hip - Right Anaerobic Culture - Preliminary NO ANAEROBES ISOLATED IN 3 DAYS 02/04/17 20:11 Hip - Right Bacterial Culture - Preliminary 02/04/17 20:11 Hip - Right Anaerobic Culture - Preliminary Coagulase Neg Staphylococcus NO ANAEROBES ISOLATED IN 4 DAYS 02/04/17 20:09 Hip - Right Bacterial Culture - Preliminary 02/04/17 20:09 Hip - Right Anaerobic Culture - Preliminary NO ANAEROBES ISOLATED IN 3 DAYS 02/04/17 17:08 Venous blood - Left Hand Blood Culture - Preliminary NO GROWTH AT 48 HOURS 02/04/17 16:59 Venous blood - Left Arm Blood Culture - Preliminary NO GROWTH AT 48 HOURS Laboratory Tests 02/04/17 02/04/17 02/05/17 17:00 17:00 03:28 WBC 50.0 H* 63.5 H* Hgb 9.7 L 8.9 L Neutrophils % (Manual) Sodium 129 L Potassium Creatinine TSH 3rd Generation Vancomycin Trough Rheumatoid Factor ESTEFANIA Screen 02/05/17 02/05/17 02/06/17 16:48 16:48 03:44 WBC Hgb Neutrophils % (Manual) Sodium Potassium Creatinine TSH 3rd Generation Vancomycin Trough 7.9 Rheumatoid Factor Negative ESTEFANIA Screen Negative 02/06/17 02/06/17 02/07/17 06:00 06:00 05:16 WBC 63.1 H* Hgb 6.9 L Neutrophils % (Manual) Sodium 130 L Potassium 3.4 L Creatinine TSH 3rd Generation Vancomycin Trough Rheumatoid Factor ESTEFANIA Screen 02/07/17 02/07/17 02/07/17 05:16 05:16 20:05 WBC 40.2 H* Hgb 6.7 L Neutrophils % (Manual) Sodium Potassium Creatinine TSH 3rd Generation 0.6581 Vancomycin Trough 27.5 Rheumatoid Factor ESTEFANIA Screen 02/08/17 02/09/17 02/09/17 05:00 05:52 05:52 WBC 32.3 H Hgb 6.0 L Neutrophils % (Manual) 39 L 31 L Sodium Potassium 3.5 Creatinine 1.16 H TSH 3rd Generation Vancomycin Trough Rheumatoid Factor ESTEFANIA Screen 02/10/17 02/11/17 02/11/17 04:20 05:03 05:03 WBC 27.5 H 33.9 H Hgb 7.0 L 7.8 L Neutrophils % (Manual) Sodium Potassium Creatinine TSH 3rd Generation Vancomycin Trough 36.7 H* Rheumatoid Factor ESTEFANIA Screen 02/12/17 02/19/17 02/19/17 07:08 04:46 04:46 WBC 80.2 H* Hgb Neutrophils % (Manual) Sodium Potassium 3.0 L Creatinine 1.35 H TSH 3rd Generation Vancomycin Trough 24.1 Rheumatoid Factor ESTEFANIA Screen 02/20/17 02/20/17 02/21/17 05:17 05:17 05:33 WBC 75.7 H* Hgb Neutrophils % (Manual) Sodium Potassium 2.9 L* 3.5 Creatinine 1.30 H 1.16 H TSH 3rd Generation Vancomycin Trough Rheumatoid Factor ESTEFANIA Screen 02/21/17 02/22/17 02/22/17 05:33 05:47 05:47 WBC 86.8 H* 81.7 H* Hgb 8.5 L Neutrophils % (Manual) Sodium Potassium 3.4 L Creatinine 1.14 H TSH 3rd Generation Vancomycin Trough Rheumatoid Factor ESTEFANIA Screen Phys Exam - Physical Examination Constitutional: NAD HEENT: PERRLA, oral pharynx no lesions Neck: no JVD, supple few scattered rhonchi Respiratory: no wheezing Cardiovascular: RRR Gastrointestinal: soft, non-tender, no distention, positive bowel sounds Musculoskeletal: pulses present, edema present Neurological: normal sensation, moves all 4 limbs Skin: normal turgor, cap refill <2 seconds Dx/Plan (1) Ileus Code(s): K56.7 - ILEUS, UNSPECIFIED Status: Suspected Comment: KUB negative for overt obstruction, + BM's currently and no emesis, npo x ice chips. surgery following. SBFT showed ileus or PSBO, repeat films neg for high grade obstruction. NGT pulled, diet to advance as tolerated. 02/21 added reglan as a propulsive agent, advancing diet, resolved (2) Septic hip Code(s): M00.9 - PYOGENIC ARTHRITIS, UNSPECIFIED Status: Acute Comment: Local care, ? d/c Ancef in next 24h (3) Status post incision and drainage Code(s): Z98.890 - OTHER SPECIFIED POSTPROCEDURAL STATES Status: Acute Comment: see above #1 (4) Hypothyroidism Code(s): E03.9 - HYPOTHYROIDISM, UNSPECIFIED Status: Chronic Qualifiers: Hypothyroidism type: acquired Qualified Code(s): E03.9 - Hypothyroidism, unspecified Comment: Continue Levothyroxine (5) Myelodysplasia (myelodysplastic syndrome) Code(s): D46.9 - MYELODYSPLASTIC SYNDROME, UNSPECIFIED Status: Chronic Comment: Oncology has seen, BMBx in OR 02/18 pending result. 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 BMBx back on 02/21, onc reviewed. MDS per Hematology service without plans for intervention. (6) Normocytic anemia Code(s): D64.9 - ANEMIA, UNSPECIFIED Status: Acute Comment: Likely due to myelodysplastic process, transfuse 1u PRBC's today, repeat CBC in am (7) ANTOINETTE (acute kidney injury) Code(s): N17.9 - ACUTE KIDNEY FAILURE, UNSPECIFIED Status: Acute Comment: I think this was a Vanc+Zosyn effect. off both. IVF upped by surgery while NPO and NGT to LIWS. Cr down to 1.35 on 02/19 and 1.3 on 02/20, 1.16 on 02/21 to 1.13 02/22. IVF's d/c'd (8) Hypokalemia Code(s): E87.6 - HYPOKALEMIA Status: Acute Comment: KCL 40meq TID, d/c Lasix , repeat K+ level in am - Plan PT/OT, psychologist social, out of bed/ambulate, DVT proph w/SCDs Stable overall -: KCL 40meq TID -: OOB/ambulate with PT -: D/C Lasix -: AM lab: BMP * Plan for transfer to [facility] rehab when K+ levels stabilize
[2017-02-26] MEDS: Latanoprost 0.005% Ophth Soln 2.5 ml Bottle L EYE SCH (21:16)
[2017-02-27 05:41] LABS: Anion Gap 9 mmol/L (10-20); BUN (Urea Nitrogen) 23 mg/dL (9.8-20.1); Calc. Creatinine Clearance 42 mL/min (70-130); Calcium 8.5 mg/dL (7.8-10.44); Carbon Dioxide 30 mmol/L (23-31); Chloride 114 mmol/L (98-107); Estimated GFR-MDRD 55; Glucose 111 mg/dL (83-110); Potassium 3.9 mmol/L (3.5-5.1); Sodium 149 mmol/L (136-145)
[2017-02-27] MEDS: CEFAZOLIN 1 GM, Syringe 2.5 ML in Sterile Water 7.5 ML SLOW IVP SCH ×3 (06:08→21:14)
[2017-02-27] MEDS: Timolol 0.5% Ophth Soln 5 ml Bottle EA EYE SCH ×2 (08:33→21:13)
[2017-02-27] MEDS: Dorzolamide HCl 2% Ophth Soln 10 ml Bottle EA EYE SCH ×2 (08:33→21:12)
[2017-02-27] MEDS: Brimonidine Tartrate 0.2% Ophth Soln 5 ml Bottle EA EYE SCH ×2 (08:34→21:09)
[2017-02-27] MEDS ORDERED: Furosemide 40 MG/4 ML VIAL ONE (09:16)
--- NOTE | 2017-02-27 09:16 | PDOC.PN ---
- Subjective Encounter Start Date: 02/27/17 Encounter Start Time: 09:15 Patient seen and examined. No new complaints. No overnight events. called by the nurse this am due to altered mentation. she was hypoxic last night and hard to wake up this morning. No N/v. No pain meds. No IV fluids running leg swelling present. pt woke up for me but was not able to stay awake. Transferred to CCU. - Objective MAR Reviewed: Yes Vital Signs & Weight: Vital Signs (12 hours) Temp Pulse Resp BP BP Pulse Ox 02/27/17 08:51 97.4 F L 74 20 147/68 H 94 L 02/27/17 08:33 97 147/68 H 02/27/17 04:49 97.9 F 99 16 158/72 H 95 02/27/17 00:20 98.3 F 80 16 126/71 94 L 02/26/17 21:22 98.1 F 80 16 119/65 93 L 02/26/17 21:16 98.1 F 80 16 119/65 95 Weight Admit Weight 143 lb Weight 143 lb I&O: 02/26/17 02/27/17 02/28/17 06:59 06:59 06:59 Intake Total 400 120 Output Total 10 Balance 390 120 Result Diagrams: 02/26/17 12:48 02/27/17 04:41 Additional Labs: Accuchecks 02/27/17 08:55 POC Glucose 121 H Phys Exam - Physical Examination acute distress and somnolent this am HEENT: sclera anicteric Neck: supple crackles present tachycardic Gastrointestinal: soft Musculoskeletal: edema present Neurological: non-focal Deviation from normal: somnolent and hard to wake up. Skin: no rash Dx/Plan (1) Altered mental status Code(s): R41.82 - ALTERED MENTAL STATUS, UNSPECIFIED Status: Acute (2) Edema Code(s): R60.9 - EDEMA, UNSPECIFIED Status: Acute (3) Fluid overload Code(s): E87.70 - FLUID OVERLOAD, UNSPECIFIED Status: Acute (4) ANTOINETTE (acute kidney injury) Code(s): N17.9 - ACUTE KIDNEY FAILURE, UNSPECIFIED Status: Acute Comment: I think this was a Vanc+Zosyn effect. off both. IVF upped by surgery while NPO and NGT to LIWS. Cr down to 1.35 on 02/19 and 1.3 on 02/20, 1.16 on 02/21 to 1.13 02/22. IVF's d/c'd (5) Septic hip Code(s): M00.9 - PYOGENIC ARTHRITIS, UNSPECIFIED Status: Acute Comment: Local care, ? d/c Ancef in next 24h (6) Hypothyroidism Code(s): E03.9 - HYPOTHYROIDISM, UNSPECIFIED Status: Chronic Qualifiers: Hypothyroidism type: acquired Qualified Code(s): E03.9 - Hypothyroidism, unspecified Comment: Continue Levothyroxine (7) Myelodysplasia (myelodysplastic syndrome) Code(s): D46.9 - MYELODYSPLASTIC SYNDROME, UNSPECIFIED Status: Chronic Comment: Oncology has seen, BMBx in OR 02/18 pending result. 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 BMBx back on 02/21, onc reviewed. MDS per Hematology service without plans for intervention. (8) Ileus Code(s): K56.7 - ILEUS, UNSPECIFIED Status: Suspected Comment: KUB negative for overt obstruction, + BM's currently and no emesis, npo x ice chips. surgery following. SBFT showed ileus or PSBO, repeat films neg for high grade obstruction. NGT pulled, diet to advance as tolerated. 02/21 added reglan as a propulsive agent, advancing diet, resolved - Plan * . Transfer to CCU. lasix 40 mg IV today. consult PCCM supportive care. will repeat cultures. AM labs.
--- NOTE | 2017-02-27 09:53 | RAD ---
PORTABLE CHEST: Date: 02-27-17 Provided Clinical History: Status post code green. FINDINGS: Comparison 02-25-17. Cardiac and mediastinal silhouette is unchanged in appearance. Bibasilar pleural parenchymal opacities redemonstrated, accentuated by lung hyperinflation. There is no evidence for p neumothorax. IMPRESSION: Persistent bibasilar pleural and parenchymal opacities. POS: [facility]
[2017-02-27] MEDS: Polyethylene Glycol 3350 17 GM Packet PO SCH (10:18)
[2017-02-27] MEDS: Potassium Chloride 20 MEQ TAB PO SCH (10:18)
[2017-02-27] MEDS: Metoclopramide HCl 10 MG TAB PO SCH (10:19)
[2017-02-27 10:57] LABS: Troponin I 0.026 ng/mL (< 0.028)
--- NOTE | 2017-02-27 11:27 | CON ---
DATE OF CONSULTATION: 02/27/2017 Forty minutes of critical care time. REASON FOR CONSULTATION: Acute respiratory failure. HISTORY OF PRESENT ILLNESS: This is an 86-year-old female who apparently has been in the hospital fo r the majority of the last month for treatment of the issues related to her right hip, I believe it w as septic at the time of admission. Dr. Saldaña took her to the operating room for drainage. Her c ourse over the last several weeks has been complicated by an ileus and acute kidney injury. This mor iggy she was found to be poorly responsive. She was brought to the ICU where she received bag mask v entilation and subsequently woke up. She is now on BiPAP ventilation. PAST MEDICAL HISTORY: 1. Myelodysplastic syndrome. 2. Diabetes mellitus. 3. Hyperlipidemia. 4. Glaucoma. 5. Macular degeneration. 6. Osteoarthritis. 7. Hypothyroidism. 8. Bilateral carotid artery stenosis. 9. Peptic ulcer disease. PAST SURGICAL HISTORY: 1. Right hip incision, drainage, and subsequent removal of hardware. 2. Hysterectomy. 3. Bladder suspension. 4. Tonsillectomy. 5. History of cataract removal. 6. Corneal transplant. ALLERGIES: None. INPATIENT MEDICATIONS: Acetaminophen, albuterol, DuoNeb, Alphagan eyedrops, cefazolin, dorzolamide, Motrin, Xalatan eyedrops, Reglan, Zofran, MiraLax, K-Dur, Ultram. SOCIAL HISTORY: Nonsmoker, does not consume alcohol, has 5 children. REVIEW OF SYSTEMS: The patient is currently on BiPAP and cannot give review of systems, therefore 10 point review of systems cannot be reviewed in detail. PHYSICAL EXAMINATION: VITAL SIGNS: Heart rate 95, blood pressure 96/48, O2 sat in the low 90s, respiratory rate 14. GENERAL: The patient is arousable. HEENT: Pupils react. Sclerae are anicteric. Oropharynx dry. NECK: No JVD, or bruits. CARDIOVASCULAR: S1, S2, complicated by a 2/6 systolic murmur. LUNGS: Crackles bilaterally. ABDOMEN: Soft, nontender, nondistended. EXTREMITIES: No clubbing or cyanosis. She has yeast type infection in the groin area. LABORATORY AND X-RAY FINDINGS: Sodium 149, potassium 3.9, chloride 114, CO2 30, BUN 23, creatinine 0 .9, glucose 111. ABG, pH 7.32, PCO2 of 53, PO2 66, that was on BiPAP 5/3. White blood cell count 11 7, hemoglobin 8.9, hematocrit 30, platelet count 201. Chest x-ray shows bilateral pulmonary edema an d effusions. ASSESSMENT: 1. Acute respiratory failure - likely related to fluid overload. 2. Rule out sepsis. 3. Recent removal of infected right hip hardware. 4. Multiple other medical problems as listed above. PLAN: 1. The patient will be treated with BiPAP. 2. Empiric antibiotics after cultures drawn. 3. Diuresis. 4. Withhold all sedative medications. She was given a dose of Narcan in the ICU, but did not result in any improvement in her mental status.
[2017-02-27 16:39] LABS: Actual Bicarbonate (HCO3a) 27.3 mEq/L (22-26); Base Excess (BEa) 1.1 mEq/L (0 (+/-) 2.5); CO2 Tension 53.5 mmHg (35.0-45.0); Calcium, Ionized 1.3 mmol/L (1.12-1.30); Hematocrit-ABG 23.7 % (36.0-47.0); Hemoglobin (Hb) 7.1 g/dL (12.0-16.0); O2 Tension (PaO2) 65.9 mmHg (80.0-100.0); pH, Arterial 7.33 (7.35-7.45)
[2017-02-27 16:41] LABS: ALV-art Gradient 83.525 (0-20); Puncture Site LRA
[2017-02-27 17:55] LABS: Bilirubin Negative (Negative); Blood, Urine Trace (Negative); Clarity TURBID (Clear); Glucose, Urine (Dipstick) Negative (Negative); Leukocyte Negative (Negative); Nitrite Negative (Negative); Protein, Urine (Dipstick) 30 mg/dL (Neg-Trace); Specific Gravity, Urine 1.016 (1.002-1.036); Urobilinogen 0.2 mg/dL (0.2-1.0); pH, Urine 5.5 (5.0-9.0)
[2017-02-27 17:59] LABS: Bacteria/HPF None Seen HPF (None Seen); Squamous Epithelial 0-3 HPF (0-3)
[2017-02-27 18:00] LABS: Pathc Cast-AUWi Flag 2.84 (0-2.49)
[2017-02-27 18:13] LABS: Crystals/HPF 4+ URIC ACID HPF (Negative); Hyaline Casts/LPF 0-3 HYALINE CAST LPF (0-3 Hyaline); Other Casts/LPF None Seen LPF (0-3 Hyaline); Yeast-All Forms None Seen HPF (None Seen)
[2017-02-27] MEDS ORDERED: Furosemide 40 MG/4 ML VIAL SLOW IVP SCH (21:00)
[2017-02-27] MEDS: Latanoprost 0.005% Ophth Soln 2.5 ml Bottle L EYE SCH (21:13)
[2017-02-28] MEDS: CEFAZOLIN 1 GM, Syringe 2.5 ML in Sterile Water 7.5 ML SLOW IVP SCH ×3 (05:19→21:16)
[2017-02-28 05:42] LABS: Hemoglobin 6.9 g/dL (12.0-16.0); Mean Corpuscular HGB CONC 29.7 g/dL (32.0-36.0); Mean Corpuscular Hemoglobin 28.8 pg (27.0-31.0); Mean Corpuscular Volume 96.9 fl (81.0-99.0); Mean Platelet Volume 12.7 fL (7.4-10.4); Platelet Count 144 thou/uL (130-400); RBC Distribution Width 17.2 % (11.5-14.5); Red Blood Cell (RBC) Count 2.39 mill/uL (4.20-5.40); White Blood Cell (WBC) Count 73.5 thou/uL (4.8-10.8)
[2017-02-28 05:46] LABS: ALT (SGPT) Less than 7 U/L (8-55); AST (SGOT) 39 U/L (5-34); Albumin 2.6 g/dL (3.4-4.8); Alkaline Phosphatase 117 U/L (40-150); Anion Gap 13 mmol/L (10-20); BUN (Urea Nitrogen) 26 mg/dL (9.8-20.1); Bilirubin, Total 0.4 mg/dL (0.2-1.2); Calc. Creatinine Clearance 42 mL/min (70-130); Calcium 8.3 mg/dL (7.8-10.44); Carbon Dioxide 29 mmol/L (23-31); Chloride 113 mmol/L (98-107); Estimated GFR-MDRD 54; Globulin 3.1 g/dL (2.4-3.5); Glucose 83 mg/dL (83-110); Potassium 3.1 mmol/L (3.5-5.1); Protein, Total 5.7 g/dL (6.0-8.3); Sodium 152 mmol/L (136-145)
[2017-02-28] MEDS ORDERED: CCU Electrolyte Replacement 1 EACH FS ONE (06:12)
[2017-02-28 06:13] LABS: Band 20 % (5-11); Hypochromia SLIGHT = 6-15 cells (100X) (0-5/hpf); Lymphocytes 2 % (21-51); MDiff Complete? YES; Metamyelocyte 39 % (0-0); Monocytes 21 % (0-10); Myelocyte 3 % (0-0); Neutrophil 13 % (42-75); Nucleated RBC 1 % (0); PLT Morphology Comment Appears Adequate; Polychromasia SLIGHT = 2-3 cells (100X) (0-2/hpf); Reactive Lymphocytes 2 % (0-10)
--- NOTE | 2017-02-28 06:17 | PDOC.PULCC ---
CCU Progress Note: Subj/Obj - Subjective Date: 02/28/17 Time: 06:15 Subjective: She is now awake and talks a lot. She has had several 20 second severe bradycardic spells, with HR down into 20s. Transcutaneous PM currently on, but we haven't had to use it. She is breathing better and I was able to take bipap off this AM - ROS Review of Systems: cough, congestion, shortness of breath - Objective Allergies/Adverse Reactions: Allergies Allergy/AdvReac Type Severity Reaction Status Date / Time No Known Drug Allergies Allergy Verified 02/04/17 22:55 Medications: Current Medications Acetaminophen (Tylenol) 1,000 mg PO Q6H PRN PRN Reason: Moderate to Severe Pain (6-10) Last Admin: 02/25/17 08:55 Dose: 1,000 mg Albuterol Sulfate (Ventolin) 2.5 mg NEB Q2H PRN PRN Reason: SOB &/or Wheezing Last Admin: 02/24/17 14:04 Dose: 2.5 mg Albuterol/Ipratropium (Duoneb) 3 ml NEB [id number] PRN PRN Reason: SOB &/or Wheezing Last Admin: 02/26/17 03:36 Dose: 3 ml Brimonidine Tartrate (Alphagan 0.2% Ophth Soln) 0 drop EA EYE BID PRIMO Last Admin: 02/27/17 21:09 Dose: 1 drp Dorzolamide HCl (Trusopt 2% Ophth Soln) 1 drop EA EYE BID PRIMO Last Admin: 02/27/17 21:12 Dose: 1 drp Furosemide (Lasix) 40 mg SLOW IVP DAILY PRIMO Cefazolin Sodium 1 gm/ Syringe (2.5 ml/ Sterile Water) 10 mls @ 120 mls/hr SLOW IVP Q8HR PRIMO Last Admin: 02/28/17 05:19 Dose: 10 mls Levofloxacin 750 mg/ Device 150 mls @ 100 mls/hr IVPB 1000 PRIMO Last Admin: 02/27/17 12:02 Dose: 150 mls Fluconazole/Sodium Chloride (200 mg/ Device) 100 mls @ 100 mls/hr IVPB 1100 PRIMO Latanoprost (Xalatan 0.005% Ophth Soln) 1 drop L EYE HS PRIMO Last Admin: 02/27/17 21:13 Dose: 1 drop Miscellaneous Medication (Ccu Electrolyte Replacement) 1 each FS ONE ONE Stop: 02/28/17 06:13 Ondansetron HCl (Zofran) 4 mg IVP Q6H PRN PRN Reason: Nausea/Vomiting Last Admin: 02/19/17 17:55 Dose: 4 mg Timolol Maleate (Timoptic 0.5% Ophth Soln) 1 drop EA EYE BID PRIMO Last Admin: 02/27/17 21:13 Dose: 1 drop MAR Reviewed: Yes Vital Signs and I&O: Vital Signs Temp 98.4 F 02/28/17 04:00 Pulse 96 02/28/17 02:30 Resp 21 H 02/27/17 20:00 BP 125/53 L 02/27/17 21:13 Pulse Ox 96 02/27/17 20:00 Intake & Output 02/27/17 02/27/17 02/28/17 06:59 18:59 06:59 Intake Total 120 Output Total 1180 1910 Balance 120 -1180 -1910 Weight 143 lb 166 lb 3.657 oz Intake: Oral 120 Output: Output, [place] 1180 1910 Other: *Amount Reported-IN IV Fluid 145 Voiding Method Diaper Diaper Indwelling Catheter # Unmeasured Voids 1 # Bowel Movements 1 1 Vent Setting: currently on Bipap CCU Progress Note: Exam - Physical Exam Constitutional: NAD HEENT: PERRLA, sclera anicteric Neck: no JVD Cardiovascular: RRR, no significant murmur Deviation from normal: bradycardic strips reviewed. Episodic Deviation from normal: a few crackles in both bases Gastrointestinal: soft, non-tender Musculoskeletal: edema present Neurological: non-focal, normal sensation, moves all 4 limbs Psychiatric: normal affect Deviation from normal: mildly disoriented Skin: no rash - Labs Result Diagrams: 02/28/17 05:15 02/28/17 05:15 Lab results: Laboratory Results - last 24 hr 02/18/17 02/18/17 02/27/17 14:02 14:02 08:55 WBC RBC Hgb Hct MCV MCH MCHC RDW Plt Count MPV Neutrophils % (Manual) Band Neuts % (Manual) Lymphocytes % (Manual) Reactive Lymphs % Monocytes % (Manual) Metamyelocytes % (Man) Myelocytes % Neutrophils # Lymphocytes # Nucleated RBCs # (Man) Hypochromia Plt Morphology Comment Polychromasia Specimen Type Puncture Site Bicarbonate Actual ABG pH ABG pCO2 ABG pO2 ABG O2 Sat Calc/Rony ABG O2 Content ABG Base Excess ABG Hematocrit ABG Hemoglobin ABG Oxyhemoglobin ABG Carboxyhemoglobin ABG Methemoglobin ABG Deoxyhemoglobin Kana Test A-a O2 Gradient Sodium Potassium Chloride Ionized Calcium Mode of Support Mechanical Rate Inspired O2 Peak Inspir Pressure PEEP or CPAP Carbon Dioxide Anion Gap BUN Creatinine Estimated GFR (MDRD) Glucose POC Glucose 121 H Calcium Total Bilirubin AST ALT Alkaline Phosphatase Troponin I B-Natriuretic Peptide Serum Total Protein Albumin Globulin Albumin/Globulin Ratio Urine Color Urine Clarity Urine pH Ur Specific Barton Urine Protein Urine Glucose (UA) Urine Ketones Urine Blood Urine Nitrite Urine Bilirubin Urine Urobilinogen Ur Leukocyte Esterase Urine RBC Urine WBC Ur Squamous Epith Cells Urine Crystals Urine Bacteria Hyaline Casts Other Casts Urine Yeast Cytogenetics Report Flow Cytometry Interp 02/27/17 02/27/17 02/27/17 09:00 09:00 09:30 WBC RBC Hgb Hct MCV MCH MCHC RDW Plt Count MPV Neutrophils % (Manual) Band Neuts % (Manual) Lymphocytes % (Manual) Reactive Lymphs % Monocytes % (Manual) Metamyelocytes % (Man) Myelocytes % Neutrophils # Lymphocytes # Nucleated RBCs # (Man) Hypochromia Plt Morphology Comment Polychromasia Specimen Type ARTERIAL Puncture Site LRA Bicarbonate Actual 27.3 H ABG pH 7.33 L ABG pCO2 53.5 H ABG pO2 65.9 L ABG O2 Sat Calc/Rony 94.2 ABG O2 Content 9.2 L ABG Base Excess 1.1 ABG Hematocrit 23.7 L ABG Hemoglobin 7.1 L ABG Oxyhemoglobin 91.8 L ABG Carboxyhemoglobin 1.9 ABG Methemoglobin 0.7 ABG Deoxyhemoglobin 5.7 H Kana Test POSITIVE A-a O2 Gradient 83.525 H Sodium 150 H Potassium 4.1 Chloride 110 H Ionized Calcium 1.3 Mode of Support NIPPV Mechanical Rate 12 Inspired O2 30 Peak Inspir Pressure 10 PEEP or CPAP 5.0 Carbon Dioxide Anion Gap BUN Creatinine Estimated GFR (MDRD) Glucose POC Glucose Calcium Total Bilirubin AST ALT Alkaline Phosphatase Troponin I 0.026 B-Natriuretic Peptide 437.0 H Serum Total Protein Albumin Globulin Albumin/Globulin Ratio Urine Color Urine Clarity Urine pH Ur Specific Barton Urine Protein Urine Glucose (UA) Urine Ketones Urine Blood Urine Nitrite Urine Bilirubin Urine Urobilinogen Ur Leukocyte Esterase Urine RBC Urine WBC Ur Squamous Epith Cells Urine Crystals Urine Bacteria Hyaline Casts Other Casts Urine Yeast Cytogenetics Report Flow Cytometry Inter 02/27/17 02/28/17 02/28/17 17:44 05:15 05:15 WBC 73.5 H* RBC 2.39 L Hgb 6.9 L Hct 23.2 L MCV 96.9 MCH 28.8 MCHC 29.7 L RDW 17.2 H Plt Count 144 MPV 12.7 H Neutrophils % (Manual) 13 L Band Neuts % (Manual) 20 H Lymphocytes % (Manual) 2 L Reactive Lymphs % 2 Monocytes % (Manual) 21 H Metamyelocytes % (Man) 39 H Myelocytes % 3 H Neutrophils # Not Reportable Lymphocytes # Not Reportable Nucleated RBCs # (Man) 1 H Hypochromia SLIGHT = 6-15 cells Plt Morphology Comment Appears Adequate Polychromasia SLIGHT = 2-3 cells Specimen Type Puncture Site Bicarbonate Actual ABG pH ABG pCO2 ABG pO2 ABG O2 Sat Calc/Rony ABG O2 Content ABG Base Excess ABG Hematocrit ABG Hemoglobin ABG Oxyhemoglobin ABG Carboxyhemoglobin ABG Methemoglobin ABG Deoxyhemoglobin Kana Test A-a O2 Gradient Sodium 152 H Potassium 3.1 L Chloride 113 H Ionized Calcium Mode of Support Mechanical Rate Inspired O2 Peak Inspir Pressure PEEP or CPAP Carbon Dioxide 29 Anion Gap 13 BUN 26 H Creatinine 0.97 Estimated GFR (MDRD) 54 Glucose 83 POC Glucose Calcium 8.3 Total Bilirubin 0.4 AST 39 H ALT Less than 7 L Alkaline Phosphatase 117 Troponin I B-Natriuretic Peptide Serum Total Protein 5.7 L Albumin 2.6 L Globulin 3.1 Albumin/Globulin Ratio 0.8 L Urine Color YELLOW Urine Clarity TURBID Urine pH 5.5 Ur Specific Barton 1.016 Urine Protein 30 H Urine Glucose (UA) Negative Urine Ketones Negative Urine Blood Trace H Urine Nitrite Negative Urine Bilirubin Negative Urine Urobilinogen 0.2 Ur Leukocyte Esterase Negative Urine RBC 4-6 Urine WBC 7-10 H Ur Squamous Epith Cells 0-3 Urine Crystals 4+ URIC ACID Urine Bacteria None Seen Hyaline Casts 0-3 HYALINE CAST Other Casts None Seen Urine Yeast None Seen Cytogenetics Report Flow Cytometry Inter CCU Progress Note: A/P - Problems (1) Congestive heart failure (CHF) Current Visit: Yes Status: Acute Code(s): I50.9 - HEART FAILURE, UNSPECIFIED Qualifiers: Congestive heart failure type: diastolic Congestive heart failure chronicity: acute Qualified Code(s): I50.31 - Acute diastolic (congestive) heart failure (2) Acute respiratory failure with hypoxemia Current Visit: Yes Status: Acute Code(s): J96.01 - ACUTE RESPIRATORY FAILURE WITH HYPOXIA (3) Bradycardia Current Visit: Yes Status: Acute Code(s): R00.1 - BRADYCARDIA, UNSPECIFIED - Time Spent with Patient Time: 35 minutes CC time - Plan Plan: X-ray looks improved compared to yesterday Given developing hypernatremia, I will cut back on diuretics Replace potassium I will ask Cardiology to see. She may need pacemaker for severe bradycardia. On/Off Bipap as needed Continue IV levaquin as this could also be a hospital acquired PNA Discussed with family at length, yesterday
[2017-02-28] MEDS ORDERED: Potassium Chloride 20 MEQ TAB PO PRN (06:23)
[2017-02-28] MEDS ORDERED: Potassium Phosphate 9 MMOL in Sodium Chloride 0.9% 100 ML IVPB PRN (06:23)
[2017-02-28] MEDS ORDERED: CCU ELECTROLYTE REPLACEMENT PROTOCOL FS PRN (06:23)
[2017-02-28] MEDS ORDERED: Potassium Phosphate 12 MMOL in Sodium Chloride 0.9% 250 ML 250 ML IV PRN (06:23)
[2017-02-28] MEDS ORDERED: Potassium Chloride 40 MEQ in Premix Bag 1 BAG IVPB PRN (06:23)
[2017-02-28] MEDS ORDERED: Magnesium Oxide 400 MG TAB PO PRN ×2 (06:23)
[2017-02-28] MEDS ORDERED: Potassium Phosphate 15 MMOL in Sodium Chloride 0.9% 250 ML 250 ML IV PRN (06:23)
[2017-02-28] MEDS ORDERED: Magnesium 2 GM/NS 0.9% 100 ML 2 GM in Premix Bag 1 BAG IVPB PRN (06:23)
[2017-02-28] MEDS: Potassium Chloride 40 MEQ in Sodium Chloride 0.9% 250 ML 250 ML IVPB PRN ×2 (07:24→18:29)
[2017-02-28] MEDS: Dorzolamide HCl 2% Ophth Soln 10 ml Bottle EA EYE SCH ×2 (08:11→21:15)
[2017-02-28] MEDS: Brimonidine Tartrate 0.2% Ophth Soln 5 ml Bottle EA EYE SCH ×2 (08:13→21:14)
[2017-02-28] MEDS: Timolol 0.5% Ophth Soln 5 ml Bottle EA EYE SCH ×2 (08:13→21:15)
--- NOTE | 2017-02-28 08:50 | RAD ---
CHEST ONE VIEW: HISTORY: Ventilated patient. COMPARISON: Chest one view from the prior day. FINDINGS: There are layering bilateral pleural effusions. Bibasilar air space opacities are present. Defibrillator pads are over the left hemithorax. There is what appears to be a catheter of some sort projecting over the lower mediastinum. IMPRESSION: Interval redistribution of the large layering bilateral pleural effusions. Bibasilar opacities persis t. POS: [facility]
[2017-02-28] MEDS: Furosemide 40 MG/4 ML VIAL SLOW IVP SCH (10:12)
[2017-02-28] MEDS: Fluconazole In NaCl,Iso-Osm 200 MG in Premix Bag 1 BAG IVPB SCH ×2 (11:39)
[2017-02-28 15:37] LABS: Potassium 3.1 mmol/L (3.5-5.1)
--- NOTE | 2017-02-28 17:59 | PDOC.PN ---
- Subjective Encounter Start Date: 02/28/17 Encounter Start Time: 17:57 Subjective: Seen in ICU with o new complaint -still weak - Objective Vital Signs & Weight: Vital Signs (12 hours) Temp Pulse Pulse Pulse Resp BP BP 02/28/17 16:00 98.5 F 02/28/17 12:00 98.7 F 02/28/17 10:35 98 97 119/55 L 02/28/17 08:22 102 H 101 H 133/59 L 02/28/17 08:13 106 H 127/53 L 02/28/17 07:37 98.7 F 106 H 24 H 02/28/17 07:00 98.7 F BP Pulse Ox Pulse Ox Pulse Ox 02/28/17 16:00 02/28/17 12:00 02/28/17 10:35 122/60 96 97 02/28/17 08:22 142/82 H 96 96 02/28/17 08:13 02/28/17 07:37 106 H 02/28/17 07:00 Weight Admit Weight 143 lb Weight 166 lb 3.657 oz Most Recent Monitor Data Heart Rate from ECG 104 NIBP 140/63 NIBP BP-Mean 115 Respiration from ECG 20 SpO2 98 I&O: 02/27/17 02/28/17 03/01/17 06:59 06:59 06:59 Intake Total 120 987.5 Output Total 3090 1935 Balance 120 -3090 -947.5 Result Diagrams: 02/28/17 05:15 02/28/17 15:13 Phys Exam - Physical Examination Constitutional: NAD HEENT: PERRLA, moist MMs, sclera anicteric, TM's clear Neck: no nodes, no JVD, supple, full ROM decreased breat sounds bilaterally Cardiovascular: RRR, no significant murmur tachycardia Gastrointestinal: soft, non-tender, no distention, positive bowel sounds Musculoskeletal: pulses present Dx/Plan (1) ANTOINETTE (acute kidney injury) Code(s): N17.9 - ACUTE KIDNEY FAILURE, UNSPECIFIED Status: Acute Comment: I think this was a Vanc+Zosyn effect. off both. IVF upped by surgery while NPO and NGT to LIWS. Cr down to 1.35 on 02/19 and 1.3 on 02/20, 1.16 on 02/21 to 1.13 02/22. IVF's d/c'd (2) Acute blood loss anemia Code(s): D62 - ACUTE POSTHEMORRHAGIC ANEMIA Status: Acute Comment: unsure of source/site. likely hip or bowel. has not shown up form bowel. have not reimaged hip. Dr Saldaña to wash out today. trnasfused 2 units yesterday, up form 6.2 to 10.2, down to 8.5 today post op hematoma drainage (3) Arthritis of right hip Code(s): M16.11 - UNILATERAL PRIMARY OSTEOARTHRITIS, RIGHT HIP Status: Acute Comment: s/p I&D, bacterial culture neg so far. No path, cyto, tissue. pt feels markedly better. suspect noninfectious, RF neg, ESTEFANIA and ANCA pending. no AFB or fungal cultures or smears. hold abx fo rnow. no other effusions or pain at present. ESR 70s and CRP 15+. Cultures remained negative, fungal cx neg to date, no AFB cultures sent. feels markedly better and able to walk on. Would NOT rx for bacterial infection at this point. TO OR 02/18 for washout and look. WBC trending up, but little in the way of symptoms, but again, would not expect much symptoms after synovectomy (4) Normocytic anemia Code(s): D64.9 - ANEMIA, UNSPECIFIED Status: Acute Comment: Likely due to myelodysplastic process, transfuse 1u PRBC's today, repeat CBC in am (5) Right hip joint effusion Code(s): M25.451 - EFFUSION, RIGHT HIP Status: Acute Comment: drained. Now with hematoma drained, cultures pending. washout 02/18. follow up on findings. Cultures remaining negative (6) Septic hip Code(s): M00.9 - PYOGENIC ARTHRITIS, UNSPECIFIED Status: Acute Comment: Local care, ? d/c Ancef in next 24h (7) Hypothyroidism Code(s): E03.9 - HYPOTHYROIDISM, UNSPECIFIED Status: Chronic Qualifiers: Hypothyroidism type: acquired Qualified Code(s): E03.9 - Hypothyroidism, unspecified Comment: Continue Levothyroxine (8) Hypernatremia Code(s): E87.0 - HYPEROSMOLALITY AND HYPERNATREMIA Status: Acute (9) Acute respiratory failure with hypoxemia Code(s): J96.01 - ACUTE RESPIRATORY FAILURE WITH HYPOXIA Status: Acute (10) Bradycardia Code(s): R00.1 - BRADYCARDIA, UNSPECIFIED Status: Acute (11) Congestive heart failure (CHF) Code(s): I50.9 - HEART FAILURE, UNSPECIFIED Status: Acute Qualifiers: Congestive heart failure type: diastolic Congestive heart failure chronicity: acute Qualified Code(s): I50.31 - Acute diastolic (congestive) heart failure (12) Fluid overload Code(s): E87.70 - FLUID OVERLOAD, UNSPECIFIED Status: Acute (13) Hypokalemia Code(s): E87.6 - HYPOKALEMIA Status: Acute Comment: KCL 40meq TID, d/c Lasix , repeat K+ level in am (14) Myelodysplasia (myelodysplastic syndrome) Code(s): D46.9 - MYELODYSPLASTIC SYNDROME, UNSPECIFIED Status: Chronic Comment: Oncology has seen, BMBx in OR 02/18 pending result. 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 BMBx back on 02/21, onc reviewed. MDS per Hematology service without plans for intervention. - Plan plan discussed w/ family, continue antibiotics, PT/OT, social services director, respiratory therapy De-escalate loop diuresis due to worsening hypernatremia -: Encourage free water intake -: Replete potassium * .
[2017-02-28] MEDS: Latanoprost 0.005% Ophth Soln 2.5 ml Bottle L EYE SCH (21:15)
--- NOTE | 2017-02-28 22:36 | CON ---
DATE OF CONSULTATION: 02/28/2017 REASON FOR CONSULTATION: Bradycardia. HISTORY OF PRESENT ILLNESS: Ms. Menendez was admitted to the hospital on 02/04/2017. On 02/05/2017, she underwent surgery for a septic right hip. She had incision and drainage of the right hip. She i nitially presented with worsening right thigh and groin pain. She underwent incision and drainage of the hip, which was done successfully. The patient has been in the hospital since then. She was seen yesterday by Dr. Uriostegui for acute res piratory failure, ileus, and also kidney injury. On 02/27/2017, she was poorly responsive. She was brought to the intensive care unit. She received bag-mask ventilation and woke up. Since then, she has had some episodes of bradycardia here in the intensive care unit unrelated to difficulty breathin g. PAST MEDICAL HISTORY: 1. Myelodysplastic syndrome. 2. Diabetes. 3. Osteoarthritis. 4. History of carotid artery stenosis. PAST SURGICAL HISTORY: Right hip incision and drainage as mentioned, subsequent removal of hardware. ALLERGIES: None unknown. INPATIENT MEDICATIONS: Acetaminophen, DuoNeb, Alphagan eyedrops. No oral beta blockers. SOCIAL HISTORY: No smoking. REVIEW OF SYSTEMS: Constitutional: No significant weight gain or loss. Vision: No changes. Heari ng: No changes. Pulmonary: No cough or wheezing. Gastrointestinal: No nausea, vomiting, or diarr hea. Skin: No rashes. Neurologic: No unilateral weakness or numbness. Psychiatric: No unusual d epression or anxiety. Hematologic: No unusual bruising. Genitourinary: No burning with urination. PHYSICAL EXAMINATION: GENERAL: This is a pleasant elderly woman resting comfortably in no distress. VITAL SIGNS: Blood pressure is 129/60, pulse currently it is 100, sinus. HEENT: Sclerae anicteric. Mouth, mucous membranes moist. NECK: Supple, no lymphadenopathy. LUNGS: Clear, no wheezing. CARDIAC: Normal S1, normal S2. There is a high-pitched 3/6 crescendo-decrescendo murmur, sounds lik e aortic stenosis. There is no diastolic murmur, no S3. ABDOMEN: Soft, nontender. EXTREMITIES: No clubbing, cyanosis. There is [id number] edema. LABORATORY DATA AND X-RAY FINDINGS: Looking at the initial x-ray on 02/04/2017, I do not see any srikanth ryan there, so I am not sure what was meant by the mention of removal of hardware. The x-ray reveal s no fracture, no cortical irregularity, no periosteal reaction. The patient did have 3 episodes of bradycardia, one at 8:23 p.m., the heart rate was extremely low at that time with a heart rate in the 20s transiently, at 0027 another episode and there was 3-second pauses, and at 2:00 a.m., there was about 3.6-second pause. ASSESSMENT: 1. Initially admitted with infected right hip area which was treated with incision and drainage and subsequently antibiotics respiratory failure, possibly volume overload. 2. Aortic stenosis, thought to be moderate in 10/2016. 3. Bradycardic episodes as outlined above. PLAN: Repeat echocardiogram. We will continue to follow. Certainly, I do not want to place pacemak er until we are confident the infection is controlled.
[2017-03-01 05:46] LABS: Hemoglobin 7.1 g/dL (12.0-16.0); Mean Corpuscular HGB CONC 29.8 g/dL (32.0-36.0); Mean Corpuscular Hemoglobin 28.9 pg (27.0-31.0); Mean Platelet Volume 12.4 fL (7.4-10.4); Platelet Count 146 thou/uL (130-400); RBC Distribution Width 17.2 % (11.5-14.5); Red Blood Cell (RBC) Count 2.44 mill/uL (4.20-5.40); White Blood Cell (WBC) Count 81.7 thou/uL (4.8-10.8)
[2017-03-01 06:14] LABS: Band 24 % (5-11); Differential Comment Atypical Mono-like; Lymphocytes 5 % (21-51); MDiff Complete? YES; Metamyelocyte 5 % (0-0); Monocytes 31 % (0-10); Myelocyte 5 % (0-0); Neutrophil 26 % (42-75); PLT Morphology Comment Appears Adequate
[2017-03-01 06:17] LABS: Anion Gap 12 mmol/L (10-20); BUN (Urea Nitrogen) 24 mg/dL (9.8-20.1); Calc. Creatinine Clearance 47 mL/min (70-130); Calcium 8.2 mg/dL (7.8-10.44); Carbon Dioxide 32 mmol/L (23-31); Chloride 115 mmol/L (98-107); Estimated GFR-MDRD 52; Glucose 109 mg/dL (83-110); Potassium 3.5 mmol/L (3.5-5.1); Sodium 155 mmol/L (136-145)
[2017-03-01] MEDS: Dorzolamide HCl 2% Ophth Soln 10 ml Bottle EA EYE SCH ×2 (08:19→21:34)
[2017-03-01] MEDS: Furosemide 40 MG/4 ML VIAL SLOW IVP SCH (08:19)
[2017-03-01] MEDS: Brimonidine Tartrate 0.2% Ophth Soln 5 ml Bottle EA EYE SCH ×2 (08:20→21:36)
[2017-03-01] MEDS: Timolol 0.5% Ophth Soln 5 ml Bottle EA EYE SCH ×2 (08:20→21:36)
[2017-03-01] MEDS ORDERED: Levothyroxine Sodium 75 MCG TAB PO SCH (09:00)
--- NOTE | 2017-03-01 09:10 | RAD ---
UPRIGHT PORTABLE CHEST ONE VIEW: HISTORY: An 86-year-old female with respiratory insufficiency. COMPARISON: 02/28/2017. FINDINGS: There appears to be progressive bilateral interstitial and alveolar opacity changes throughout both l ungs with bilateral pleural effusions and cardiomegaly. IMPRESSION: Bilateral pleural effusions, vascular congestion, and interstitial and alveolar pulmonary and parench ymal changes with little change from prior study. Continued short-term follow-up. POS: [facility]
[2017-03-01] MEDS: D5 1/4 NS 1,000 ML IV SCH ×2 (09:34→23:07)
--- NOTE | 2017-03-01 11:22 | PRG ---
DATE OF SERVICE: 03/01/2017 PULMONARY OR CRITICAL CARE PROGRESS NOTE SUBJECTIVE: The patient did better over the last 24 hours. Did not require BiPAP last night. She i s still coughing up thick tenacious secretions. PHYSICAL EXAMINATION: VITAL SIGNS: Temperature is 98.5, pulse 93, blood pressure 139/60, total intake for 24 hours 1187, o utput 2410, weight 165 pounds. HEENT: Unremarkable. NECK: No JVD. LUNGS: Inspiratory crackles at both bases. CARDIOVASCULAR: S1 and S2, slightly tachycardic. ABDOMEN: Soft and nontender. EXTREMITIES: Without clubbing or cyanosis. She has trace edema. LABORATORY DATA AND IMAGING DATA: Sodium 155, potassium 3.5, chloride 115, CO2 30, BUN 24, creatinin e 1.0, glucose 109. White blood cell count 81.7, hemoglobin 7.1, hematocrit 23.7, platelet count 146 . Chest x-ray shows bilateral infiltrates. ASSESSMENT: 1. Bilateral pneumonia. 2. Congestive heart failure - acute systolic. 3. Hypernatremia. 4. Renal insufficiency. 5. Septic hip. 6. Episodes of bradycardia. PLAN: 1. Continue antibiotics. 2. Add some steroids to see if that will help. 3. D5 1/4 normal saline for the next 24 hours.
[2017-03-01] MEDS: Fluconazole In NaCl,Iso-Osm 200 MG in Premix Bag 1 BAG IVPB SCH ×2 (11:29)
--- NOTE | 2017-03-01 18:59 | PDOC.PN ---
- Subjective Encounter Start Date: 03/01/17 Encounter Start Time: 18:58 Subjective: seen and examined condition same - Objective Vital Signs & Weight: Vital Signs (12 hours) Temp Pulse Pulse Pulse Resp BP BP 03/01/17 16:00 98.9 F 03/01/17 14:15 95 88 147/73 H 03/01/17 12:00 98.7 F 03/01/17 08:27 92 103 H 128/48 L 03/01/17 08:20 92 163/69 H 03/01/17 07:43 98.5 F 105 H 15 03/01/17 07:00 98.4 F BP Pulse Ox Pulse Ox Pulse Ox 03/01/17 16:00 03/01/17 14:15 137/67 98 96 03/01/17 12:00 03/01/17 08:27 155/73 H 95 98 03/01/17 08:20 03/01/17 07:43 99 03/01/17 07:00 Weight Admit Weight 143 lb Weight 165 lb 5.547 oz Most Recent Monitor Data Heart Rate from ECG 90 NIBP 151/50 NIBP BP-Mean 105 Respiration from ECG 26 SpO2 95 I&O: 02/28/17 03/01/17 03/02/17 06:59 06:59 06:59 Intake Total 1187.5 1557 Output Total 3090 2410 2190 Balance -3090 -1222.5 -633 Result Diagrams: 03/01/17 05:20 03/01/17 05:20 Phys Exam - Physical Examination Constitutional: NAD HEENT: PERRLA, moist MMs, sclera anicteric Neck: no nodes, no JVD, supple, full ROM Respiratory: no wheezing, no rales, no rhonchi Cardiovascular: RRR, no significant murmur, no rub Gastrointestinal: soft, non-tender, no distention, positive bowel sounds Dx/Plan (1) ANTOINETTE (acute kidney injury) Code(s): N17.9 - ACUTE KIDNEY FAILURE, UNSPECIFIED Status: Acute Comment: I think this was a Vanc+Zosyn effect. off both. IVF upped by surgery while NPO and NGT to LIWS. Cr down to 1.35 on 02/19 and 1.3 on 02/20, 1.16 on 02/21 to 1.13 02/22. IVF's d/c'd (2) Acute blood loss anemia Code(s): D62 - ACUTE POSTHEMORRHAGIC ANEMIA Status: Acute Comment: unsure of source/site. likely hip or bowel. has not shown up form bowel. have not reimaged hip. Dr Saldaña to wash out today. trnasfused 2 units yesterday, up form 6.2 to 10.2, down to 8.5 today post op hematoma drainage (3) Arthritis of right hip Code(s): M16.11 - UNILATERAL PRIMARY OSTEOARTHRITIS, RIGHT HIP Status: Acute Comment: s/p I&D, bacterial culture neg so far. No path, cyto, tissue. pt feels markedly better. suspect noninfectious, RF neg, ESTEFANIA and ANCA pending. no AFB or fungal cultures or smears. hold abx fo rnow. no other effusions or pain at present. ESR 70s and CRP 15+. Cultures remained negative, fungal cx neg to date, no AFB cultures sent. feels markedly better and able to walk on. Would NOT rx for bacterial infection at this point. TO OR 02/18 for washout and look. WBC trending up, but little in the way of symptoms, but again, would not expect much symptoms after synovectomy (4) Normocytic anemia Code(s): D64.9 - ANEMIA, UNSPECIFIED Status: Acute Comment: Likely due to myelodysplastic process, transfuse 1u PRBC's today, repeat CBC in am (5) Right hip joint effusion Code(s): M25.451 - EFFUSION, RIGHT HIP Status: Acute Comment: drained. Now with hematoma drained, cultures pending. washout 02/18. follow up on findings. Cultures remaining negative (6) Septic hip Code(s): M00.9 - PYOGENIC ARTHRITIS, UNSPECIFIED Status: Acute Comment: Local care, ? d/c Ancef in next 24h (7) Hypothyroidism Code(s): E03.9 - HYPOTHYROIDISM, UNSPECIFIED Status: Chronic Qualifiers: Hypothyroidism type: acquired Qualified Code(s): E03.9 - Hypothyroidism, unspecified Comment: Continue Levothyroxine (8) Hypernatremia Code(s): E87.0 - HYPEROSMOLALITY AND HYPERNATREMIA Status: Acute (9) Acute respiratory failure with hypoxemia Code(s): J96.01 - ACUTE RESPIRATORY FAILURE WITH HYPOXIA Status: Acute (10) Bradycardia Code(s): R00.1 - BRADYCARDIA, UNSPECIFIED Status: Acute (11) Congestive heart failure (CHF) Code(s): I50.9 - HEART FAILURE, UNSPECIFIED Status: Acute Qualifiers: Congestive heart failure type: diastolic Congestive heart failure chronicity: acute Qualified Code(s): I50.31 - Acute diastolic (congestive) heart failure (12) Fluid overload Code(s): E87.70 - FLUID OVERLOAD, UNSPECIFIED Status: Acute (13) Hypokalemia Code(s): E87.6 - HYPOKALEMIA Status: Acute Comment: KCL 40meq TID, d/c Lasix , repeat K+ level in am (14) Myelodysplasia (myelodysplastic syndrome) Code(s): D46.9 - MYELODYSPLASTIC SYNDROME, UNSPECIFIED Status: Chronic Comment: Oncology has seen, BMBx in OR 02/18 pending result. 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 BMBx back on 02/21, onc reviewed. MDS per Hematology service without plans for intervention. - Plan plan discussed w/ family, PT/OT, social media community manager, respiratory therapy Code status is now DNR * .
[2017-03-01] MEDS: Latanoprost 0.005% Ophth Soln 2.5 ml Bottle L EYE SCH (21:35)
[2017-03-02] MEDS: D5 1/4 NS 1,000 ML IV SCH ×2 (00:14→16:27)
[2017-03-02 04:27] LABS: White Blood Cell (WBC) Count 70.3 thou/uL (4.8-10.8)
[2017-03-02 04:36] LABS: Anion Gap 13 mmol/L (10-20); BUN (Urea Nitrogen) 23 mg/dL (9.8-20.1); Calc. Creatinine Clearance 53 mL/min (70-130); Calcium 8.2 mg/dL (7.8-10.44); Carbon Dioxide 32 mmol/L (23-31); Chloride 109 mmol/L (98-107); Estimated GFR-MDRD 60; Glucose 190 mg/dL (83-110); Magnesium 1.7 mg/dL (1.6-2.6); Potassium 3.1 mmol/L (3.5-5.1); Sodium 151 mmol/L (136-145)
[2017-03-02 04:53] LABS: Anisocytosis SLIGHT = 6-15 cells (100X) (0-5/hpf); Band 26 % (5-11); Hemoglobin 7.7 g/dL (12.0-16.0); Hypochromia SLIGHT = 6-15 cells (100X) (0-5/hpf); Lymphocytes 10 % (21-51); MDiff Complete? YES; Mean Corpuscular Hemoglobin 28.3 pg (27.0-31.0); Mean Corpuscular Volume 97.7 fl (81.0-99.0); Mean Platelet Volume 8.9 fL (7.4-10.4); Metamyelocyte 22 % (0-0); Monocytes 13 % (0-10); Myelocyte 3 % (0-0); Neutrophil 25 % (42-75); PLT Morphology Comment Appears Adequate; Platelet Count 126 thou/uL (130-400); Polychromasia SLIGHT = 2-3 cells (100X) (0-2/hpf); RBC Distribution Width 17.4 % (11.5-14.5); Reactive Lymphocytes 1 % (0-10); Red Blood Cell (RBC) Count 2.72 mill/uL (4.20-5.40); Schistocytes SLIGHT = 2-5 cells (100X) (0-1/hpf)
[2017-03-02] MEDS: Levothyroxine Sodium 75 MCG TAB PO SCH (05:06)
[2017-03-02] MEDS: Potassium Chloride 40 MEQ in Sodium Chloride 0.9% 250 ML 250 ML IVPB PRN (05:41)
[2017-03-02] MEDS ORDERED: Furosemide 40 MG/4 ML VIAL SLOW IVP SCH (08:15)
--- NOTE | 2017-03-02 08:44 | PRG ---
DATE OF SERVICE: 03/02/2017 Ms. Menendez is doing well. She has had no further pauses in her heart rhythm. She has a productive cough. PHYSICAL EXAMINATION: VITAL SIGNS: Her blood pressure is elevated at 180 systolic now, pulse is 74. LUNGS: Some rhonchi. CARDIAC: Normal S1, normal S2. ABDOMEN: Soft, nontender. EXTREMITIES: No edema. LABORATORY DATA: Most recent white count of 17,000, hemoglobin 7.7, hematocrit 26.6. Chest x-ray sh ows pulmonary vascular congestion yesterday. ASSESSMENT: 1. Sinus pauses, no recurrence. 2. Recent infection. 3. Moderate aortic stenosis. PLAN: 1. We will give her another dose of Lasix IV. 2. Add losartan in view of the hypertension and hypokalemia. 3. Dr. Ye will be seeing the patient in next few days.
--- NOTE | 2017-03-02 08:50 | RAD ---
PORTABLE CHEST ONE VIEW: 03/02/2017 3:30 a.m. HISTORY: Respiratory distress. COMPARISON: Exam from the previous day. FINDINGS: The heart size is stable. Bilateral pleural effusions with infiltrates in the mid and lower lung zon es are again noted. No pneumothoraces are seen. POS: [facility]
[2017-03-02] MEDS: Brimonidine Tartrate 0.2% Ophth Soln 5 ml Bottle EA EYE SCH ×2 (08:53→20:16)
[2017-03-02] MEDS: Losartan 25 MG TAB PO SCH (08:53)
[2017-03-02] MEDS: Timolol 0.5% Ophth Soln 5 ml Bottle EA EYE SCH ×2 (08:55→20:17)
[2017-03-02] MEDS: Dorzolamide HCl 2% Ophth Soln 10 ml Bottle EA EYE SCH ×2 (08:55→20:17)
--- NOTE | 2017-03-02 11:09 | PRG ---
DATE OF SERVICE: 03/02/2017 Thirty-five minutes critical care time. SUBJECTIVE: The patient is doing better. She is awake and alert and her family is at bedside. OBJECTIVE: VITAL SIGNS: On exam, her temperature is 97.9, pulse 108, blood pressure 125/65, O2 saturation 94% o n 2 liters nasal cannula. HEENT: Unremarkable. NECK: No JVD. CHEST: Inspiratory crackles bilaterally. CARDIAC: S1 and S2, regular. ABDOMEN: Soft, nontender. EXTREMITIES: No edema. LABORATORY DATA: White blood cell count 70, hematocrit 26.6, and platelet count 126. Sodium 151, po tassium 3.1, chloride 109, CO2 of 32, BUN 23, creatinine 0.8, glucose 190. Cultures demonstrate no g rowth to date. ASSESSMENT: 1. Bilateral pneumonia. 2. Congestive heart failure - acute systolic. 3. Hypernatremia. 4. Renal insufficiency. 5. Septic hip. 6. Episodes of bradycardia, which have not recurred in a couple of days. PLAN: 1. Continue the IV antibiotics. 2. Continue D5 quarter normal saline. 3. Continue IV steroids. 4. Keep in ICU for at least 24 more hours.
[2017-03-02] MEDS: Fluconazole In NaCl,Iso-Osm 200 MG in Premix Bag 1 BAG IVPB SCH ×2 (11:43)
--- NOTE | 2017-03-02 12:56 | PDOC.PN ---
- Subjective Encounter Start Date: 03/02/17 Encounter Start Time: 12:54 Patient seen and examined. No new complaints. No overnight events. seen in ICU family at bedside feeling better. No pain reported. - Objective Resuscitation Status: Resuscitation Status DNR:Do Not Resuscitate MAR Reviewed: Yes Vital Signs & Weight: Vital Signs (12 hours) Temp Pulse Resp BP Pulse Ox 03/02/17 11:00 98.4 F 03/02/17 08:55 97 124/64 03/02/17 08:00 97.9 F 97 21 H 97 03/02/17 04:00 98.6 F Weight Admit Weight 143 lb Weight 158 lb 11.725 oz Most Recent Monitor Data Heart Rate from ECG 85 NIBP 138/44 NIBP BP-Mean 103 Respiration from ECG 21 SpO2 91 I&O: 03/01/17 03/02/17 03/03/17 06:59 06:59 06:59 Intake Total 1187.5 3071 600 Output Total 2410 2190 565 Balance -1222.5 881 35 Result Diagrams: 03/02/17 03:56 03/02/17 03:56 Phys Exam - Physical Examination Constitutional: NAD HEENT: sclera anicteric Neck: supple Respiratory: no wheezing, no rales Cardiovascular: RRR Gastrointestinal: soft Musculoskeletal: edema present Neurological: non-focal, moves all 4 limbs Psychiatric: normal affect, A&O x 3 Skin: no rash Dx/Plan (1) Altered mental status Code(s): R41.82 - ALTERED MENTAL STATUS, UNSPECIFIED Status: Acute (2) Edema Code(s): R60.9 - EDEMA, UNSPECIFIED Status: Acute (3) Fluid overload Code(s): E87.70 - FLUID OVERLOAD, UNSPECIFIED Status: Acute (4) ANTOINETTE (acute kidney injury) Code(s): N17.9 - ACUTE KIDNEY FAILURE, UNSPECIFIED Status: Acute Comment: I think this was a Vanc+Zosyn effect. off both. IVF upped by surgery while NPO and NGT to LIWS. Cr down to 1.35 on 02/19 and 1.3 on 02/20, 1.16 on 02/21 to 1.13 02/22. IVF's d/c'd (5) Septic hip Code(s): M00.9 - PYOGENIC ARTHRITIS, UNSPECIFIED Status: Acute Comment: Local care, ? d/c Ancef in next 24h (6) Hypothyroidism Code(s): E03.9 - HYPOTHYROIDISM, UNSPECIFIED Status: Chronic Qualifiers: Hypothyroidism type: acquired Qualified Code(s): E03.9 - Hypothyroidism, unspecified Comment: Continue Levothyroxine (7) Myelodysplasia (myelodysplastic syndrome) Code(s): D46.9 - MYELODYSPLASTIC SYNDROME, UNSPECIFIED Status: Chronic Comment: Oncology has seen, BMBx in OR 02/18 pending result. 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 BMBx back on 02/21, onc reviewed. MDS per Hematology service without plans for intervention. (8) Ileus Code(s): K56.7 - ILEUS, UNSPECIFIED Status: Suspected Comment: KUB negative for overt obstruction, + BM's currently and no emesis, npo x ice chips. surgery following. SBFT showed ileus or PSBO, repeat films neg for high grade obstruction. NGT pulled, diet to advance as tolerated. 02/21 added reglan as a propulsive agent, advancing diet, resolved - Plan cont current plan of care, plan discussed w/ family, social work faculty member, DVT proph w/SCDs * . looks better DNR Appreciate help from PCCM and cardio Monitor in ICU for one more day. replete electrolytes per protocol. continue free water as tolerated. AM labs.
[2017-03-02] MEDS: Latanoprost 0.005% Ophth Soln 2.5 ml Bottle L EYE SCH (20:17)
[2017-03-03] MEDS: Levothyroxine Sodium 75 MCG TAB PO SCH (05:05)
[2017-03-03 05:40] LABS: Hemoglobin 6.6 g/dL (12.0-16.0); Mean Corpuscular HGB CONC 28.4 g/dL (32.0-36.0); Mean Corpuscular Hemoglobin 28.1 pg (27.0-31.0); Mean Corpuscular Volume 99.1 fl (81.0-99.0); Mean Platelet Volume 12.3 fL (7.4-10.4); Platelet Count 141 thou/uL (130-400); RBC Distribution Width 17.9 % (11.5-14.5); Red Blood Cell (RBC) Count 2.34 mill/uL (4.20-5.40); White Blood Cell (WBC) Count 76.4 thou/uL (4.8-10.8)
[2017-03-03 05:41] LABS: Anion Gap 11 mmol/L (10-20); BUN (Urea Nitrogen) 24 mg/dL (9.8-20.1); Calc. Creatinine Clearance 58 mL/min (70-130); Calcium 8.2 mg/dL (7.8-10.44); Carbon Dioxide 32 mmol/L (23-31); Chloride 108 mmol/L (98-107); Estimated GFR-MDRD 70; Glucose 159 mg/dL (83-110); Magnesium 1.7 mg/dL (1.6-2.6); Sodium 148 mmol/L (136-145)
[2017-03-03 06:17] LABS: Band 40 % (5-11); Hypochromia SLIGHT = 6-15 cells (100X) (0-5/hpf); Lymphocytes 3 % (21-51); MDiff Complete? YES; Monocytes 28 % (0-10); Neutrophil 29 % (42-75); Nucleated RBC 2 % (0); PLT Morphology Comment Appears Adequate
[2017-03-03] MEDS: Potassium Chloride 40 MEQ in Sodium Chloride 0.9% 250 ML 250 ML IVPB PRN (06:50)
--- NOTE | 2017-03-03 08:55 | RAD ---
PORTABLE CHEST 1 VIEW: DATE: 03/03/17. TIME: 5:13 a.m. HISTORY: Respiratory distress. FINDINGS/IMPRESSION: No significant interval change is seen since the previous day's exam. POS: [facility]
[2017-03-03] MEDS ORDERED: Propofol 1,000 MG/100 ML VIAL IV ONE (09:20)
--- NOTE | 2017-03-03 09:54 | PRG ---
DATE OF SERVICE: 03/03/2017 SUBJECTIVE: Family has changed the patient's code status to DNR. She is still having occasional purvi ses with her cardiac rhythm. OBJECTIVE: VITAL SIGNS: Temperature 98.2, pulse 62, blood pressure 140/77. A 24-hour intake 2761, output 1170. HEENT: Unremarkable. NECK: No JVD. LUNGS: Poor air movement. No wheezing. CARDIAC: S1 and S2 now regular to bradycardic. ABDOMEN: Soft, nontender. EXTREMITIES: No edema. LABORATORY DATA: Sodium 148, potassium 3.0, chloride 108, CO2 32, BUN 24, creatinine 0.7, glucose 15 9, white blood cell count 76.4, hemoglobin 6.6, hematocrit 23.2, platelet count 141. X-RAY FINDINGS: Chest x-ray continues to show congestion bilaterally. ASSESSMENT: 1. Bilateral pneumonia. 2. Congestive heart failure - acute systolic. 3. Hypernatremia, which is improved. 4. Renal insufficiency. 5. Septic hip. 6. Episodic bradycardia. PLAN: I do not think Ms. Menendez's prognosis is very good. Aside from putting in a pacemaker, I do not think there is much else that could be done a better heart situation. She will be transferred ou t to telemetry. She will continue Levaquin, but I will stop the Diflucan. She will continue on a co urse normal saline for another 24 hours. Potassium is being replaced this morning, level will be rec hecked tomorrow. She will continue IV steroids. 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 I discussed this with Dr. Saldaña and looks to be consis tent with bone marrow biopsy taken several days ago. Prognosis, patient is quite poor.
[2017-03-03] MEDS: Losartan 25 MG TAB PO SCH (11:27)
[2017-03-03] MEDS: Timolol 0.5% Ophth Soln 5 ml Bottle EA EYE SCH ×2 (11:28→21:04)
[2017-03-03] MEDS: Dorzolamide HCl 2% Ophth Soln 10 ml Bottle EA EYE SCH ×2 (11:28→21:04)
[2017-03-03] MEDS: Brimonidine Tartrate 0.2% Ophth Soln 5 ml Bottle EA EYE SCH ×2 (11:29→21:04)
--- NOTE | 2017-03-03 12:33 | PDOC.PN ---
- Subjective Encounter Start Date: 03/03/17 Encounter Start Time: 12:31 Patient seen and examined. No new complaints. No overnight events. pt lethargic. family updated at bedside. c/o cough and leg swelling. - Objective Resuscitation Status: Resuscitation Status DNR:Do Not Resuscitate MAR Reviewed: Yes Vital Signs & Weight: Vital Signs (12 hours) Temp Pulse Resp BP Pulse Ox 03/03/17 11:28 66 129/75 03/03/17 08:00 97.8 F 66 26 H 93 L 03/03/17 03:00 98.2 F Weight Admit Weight 143 lb Weight 156 lb 15.506 oz Most Recent Monitor Data Heart Rate from ECG 97 NIBP 129/75 NIBP BP-Mean 96 Respiration from ECG 32 SpO2 95 I&O: 03/02/17 03/03/17 03/04/17 06:59 06:59 06:59 Intake Total 3071 2561 Output Total 2190 1170 226 Balance 881 1391 -226 Result Diagrams: 03/03/17 04:55 03/03/17 04:55 Phys Exam - Physical Examination Constitutional: NAD HEENT: sclera anicteric Neck: supple rales present Cardiovascular: RRR Gastrointestinal: soft Musculoskeletal: edema present Neurological: non-focal Psychiatric: normal affect, A&O x 3 Skin: no rash Dx/Plan (1) Altered mental status Code(s): R41.82 - ALTERED MENTAL STATUS, UNSPECIFIED Status: Acute (2) Edema Code(s): R60.9 - EDEMA, UNSPECIFIED Status: Acute (3) Fluid overload Code(s): E87.70 - FLUID OVERLOAD, UNSPECIFIED Status: Acute (4) ANTOINETTE (acute kidney injury) Code(s): N17.9 - ACUTE KIDNEY FAILURE, UNSPECIFIED Status: Acute Comment: I think this was a Vanc+Zosyn effect. off both. IVF upped by surgery while NPO and NGT to LIWS. Cr down to 1.35 on 02/19 and 1.3 on 02/20, 1.16 on 02/21 to 1.13 02/22. IVF's d/c'd (5) Septic hip Code(s): M00.9 - PYOGENIC ARTHRITIS, UNSPECIFIED Status: Acute Comment: Local care, ? d/c Ancef in next 24h (6) Hypothyroidism Code(s): E03.9 - HYPOTHYROIDISM, UNSPECIFIED Status: Chronic Qualifiers: Hypothyroidism type: acquired Qualified Code(s): E03.9 - Hypothyroidism, unspecified Comment: Continue Levothyroxine (7) Myelodysplasia (myelodysplastic syndrome) Code(s): D46.9 - MYELODYSPLASTIC SYNDROME, UNSPECIFIED Status: Chronic Comment: Oncology has seen, BMBx in OR 02/18 pending result. 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 BMBx back on 02/21, onc reviewed. MDS per Hematology service without plans for intervention. (8) Ileus Code(s): K56.7 - ILEUS, UNSPECIFIED Status: Suspected Comment: KUB negative for overt obstruction, + BM's currently and no emesis, npo x ice chips. surgery following. SBFT showed ileus or PSBO, repeat films neg for high grade obstruction. NGT pulled, diet to advance as tolerated. 02/21 added reglan as a propulsive agent, advancing diet, resolved - Plan cont current plan of care, plan discussed w/ family * . transferred to [facility]. edematous reduce IVF to 50cc/hr. continue oral free water if tolerated. Not eating much. ? f/u with Hem/Onc regarding the bone marrow results. replete K prognosis guarded. need goal of care clarification. palliative care consult in place. AM labs.
[2017-03-03] MEDS: D5 1/4 NS 1,000 ML IV SCH (13:16)
[2017-03-03] MEDS: Latanoprost 0.005% Ophth Soln 2.5 ml Bottle L EYE SCH (21:05)
[2017-03-04 05:21] LABS: Hemoglobin 6.5 g/dL (12.0-16.0); Mean Corpuscular HGB CONC 28.8 g/dL (32.0-36.0); Mean Corpuscular Hemoglobin 28.8 pg (27.0-31.0); Mean Corpuscular Volume 99.9 fl (81.0-99.0); Mean Platelet Volume 11.7 fL (7.4-10.4); Platelet Count 129 thou/uL (130-400); RBC Distribution Width 17.5 % (11.5-14.5); Red Blood Cell (RBC) Count 2.24 mill/uL (4.20-5.40); White Blood Cell (WBC) Count 71.2 thou/uL (4.8-10.8)
[2017-03-04 05:38] LABS: Anion Gap 11 mmol/L (10-20); BUN (Urea Nitrogen) 28 mg/dL (9.8-20.1); Calc. Creatinine Clearance 58 mL/min (70-130); Carbon Dioxide 32 mmol/L (23-31); Chloride 109 mmol/L (98-107); Estimated GFR-MDRD 71; Glucose 145 mg/dL (83-110); Potassium 3.6 mmol/L (3.5-5.1); Sodium 148 mmol/L (136-145)
[2017-03-04 05:54] LABS: Band 23 % (5-11); Lymphocytes 9 % (21-51); MDiff Complete? YES; Metamyelocyte 4 % (0-0); Monocytes 17 % (0-10); Myelocyte 8 % (0-0); Neutrophil 39 % (42-75); PLT Morphology Comment Appears Adequate
[2017-03-04] MEDS: Levothyroxine Sodium 75 MCG TAB PO SCH (06:22)
[2017-03-04] MEDS: D5 1/4 NS 1,000 ML IV SCH (08:49)
[2017-03-04] MEDS: Brimonidine Tartrate 0.2% Ophth Soln 5 ml Bottle EA EYE SCH ×2 (08:50→21:02)
[2017-03-04] MEDS: Dorzolamide HCl 2% Ophth Soln 10 ml Bottle EA EYE SCH ×2 (08:50→20:58)
[2017-03-04] MEDS: Timolol 0.5% Ophth Soln 5 ml Bottle EA EYE SCH ×2 (08:51→21:01)
[2017-03-04] MEDS: Losartan 25 MG TAB PO SCH (08:51)
--- NOTE | 2017-03-04 14:23 | PDOC.PN ---
- Subjective Encounter Start Date: 03/04/17 Encounter Start Time: 14:22 pt weak not eating much c/o cough - Objective Resuscitation Status: Resuscitation Status DNR:Do Not Resuscitate MAR Reviewed: Yes Vital Signs & Weight: Vital Signs (12 hours) Temp Pulse Resp BP BP Pulse Ox 03/04/17 11:49 97.5 F L 76 24 H 89/41 L 98 03/04/17 08:51 86 147/85 H 03/04/17 07:51 97.6 F 82 22 H 101/58 L 96 03/04/17 07:29 97.9 F 78 18 92 L 03/04/17 04:00 97.9 F 78 18 120/54 L 99 Weight Admit Weight 143 lb Weight 160 lb 8 oz Most Recent Monitor Data Heart Rate from ECG 97 NIBP 129/75 NIBP BP-Mean 96 Respiration from ECG 32 SpO2 95 I&O: 03/03/17 03/04/17 03/05/17 06:59 06:59 06:59 Intake Total 2561 700 Output Total 1170 526 Balance 1391 174 Result Diagrams: 03/04/17 04:44 03/04/17 04:44 Phys Exam - Physical Examination Constitutional: NAD HEENT: sclera anicteric Neck: supple Respiratory: no wheezing, no rales Cardiovascular: no significant murmur Gastrointestinal: soft Musculoskeletal: edema present Neurological: non-focal, moves all 4 limbs Deviation from normal: lethargic Skin: no rash Dx/Plan (1) Altered mental status Code(s): R41.82 - ALTERED MENTAL STATUS, UNSPECIFIED Status: Acute (2) Edema Code(s): R60.9 - EDEMA, UNSPECIFIED Status: Acute (3) Fluid overload Code(s): E87.70 - FLUID OVERLOAD, UNSPECIFIED Status: Acute (4) ANTOINETTE (acute kidney injury) Code(s): N17.9 - ACUTE KIDNEY FAILURE, UNSPECIFIED Status: Acute Comment: I think this was a Vanc+Zosyn effect. off both. IVF upped by surgery while NPO and NGT to LIWS. Cr down to 1.35 on 02/19 and 1.3 on 02/20, 1.16 on 02/21 to 1.13 02/22. IVF's d/c'd (5) Septic hip Code(s): M00.9 - PYOGENIC ARTHRITIS, UNSPECIFIED Status: Acute Comment: Local care, ? d/c Ancef in next 24h (6) Hypothyroidism Code(s): E03.9 - HYPOTHYROIDISM, UNSPECIFIED Status: Chronic Qualifiers: Hypothyroidism type: acquired Qualified Code(s): E03.9 - Hypothyroidism, unspecified Comment: Continue Levothyroxine (7) Myelodysplasia (myelodysplastic syndrome) Code(s): D46.9 - MYELODYSPLASTIC SYNDROME, UNSPECIFIED Status: Chronic Comment: Oncology has seen, BMBx in OR 02/18 pending result. 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 BMBx back on 02/21, onc reviewed. MDS per Hematology service without plans for intervention. (8) Ileus Code(s): K56.7 - ILEUS, UNSPECIFIED Status: Suspected Comment: KUB negative for overt obstruction, + BM's currently and no emesis, npo x ice chips. surgery following. SBFT showed ileus or PSBO, repeat films neg for high grade obstruction. NGT pulled, diet to advance as tolerated. 02/21 added reglan as a propulsive agent, advancing diet, resolved - Plan * . continue free water will stop IV fluids encourage feeds palliative care consult poor prognosis family to arrive tomorrow. need clarification of goals of care. AM labs.
--- NOTE | 2017-03-04 15:55 | PDOC.CTH ---
<Jil Marshall - Last Filed: 03/04/17 16:01> Cardiology Progress Note - Subjective The pt seen and examined. No overnight events. No cardiac complaints. - Objective Vital Signs Temp Pulse Resp BP BP Pulse Ox 03/04/17 15:49 98.4 F 68 20 143/71 H 94 L 03/04/17 11:49 97.5 F L 76 24 H 89/41 L 98 03/04/17 08:51 86 147/85 H 03/04/17 07:51 97.6 F 82 22 H 101/58 L 96 03/04/17 07:29 97.9 F 78 18 92 L 03/04/17 04:00 97.9 F 78 18 120/54 L 99 Admit Weight 143 lb Weight 160 lb 8 oz 03/03/17 03/04/17 03/05/17 06:59 06:59 06:59 Intake Total 2561 700 Output Total 1170 526 Balance 1391 174 - Physical Examination General/Neuro: other: (intermittent confused) Lungs: other: (coase and diminished at bases) Heart: RRR Abdomen: soft Extremities: other: (3 + pitting edema in Bilat ankles) - Telemetry Telemetry Rhythm: SR 70-80s - Labs Result Diagrams: 03/04/17 04:44 03/04/17 04:44 Troponin/CKMB Troponin I 0.026 ng/mL (< 0.028) 02/27/17 09:00 - Assessment/Plan 1. Hx of Bradycardia - Several episodes of Bradycardia, HR down to 40s for 10- 20 sec.; cont. monitor 2. Acute Resp. failure - stable with NC; managed by Sound Installation Worker 3. Septic Rt hip with s/p I&D - managed by PCP 4. HTN - stable with current medication 5. Myelodysplasia - managed by oncology 6. ANTOINETTE - improved; cont. monitor 7. Ileus - tolerate PO; 8. Hypothyroidism - on Thyroid medication 9. Edema - IV fluid was stopped today MAR reviewed Review of Systems - Review of Systems Constitutional: reports: see HPI EENTM: reports: see HPI Respiratory: reports: see HPI Cardiac (ROS): reports: see HPI ABD/GI: reports: see HPI : reports: see HPI Musculoskeletal: reports: see HPI <Jordon Ye - Last Filed: 03/04/17 19:59> Cardiology Progress Note - Objective Vital Signs Temp Pulse Resp BP BP Pulse Ox 03/04/17 15:49 98.4 F 68 20 143/71 H 94 L 03/04/17 11:49 97.5 F L 76 24 H 89/41 L 98 03/04/17 08:51 86 147/85 H Admit Weight 143 lb Weight 160 lb 8 oz 03/03/17 03/04/17 03/05/17 06:59 06:59 06:59 Intake Total 2561 700 1210 Output Total 1170 526 950 Balance 1391 174 260 - Labs Result Diagrams: 03/04/17 04:44 03/04/17 04:44 Troponin/CKMB Troponin I 0.026 ng/mL (< 0.028) 02/27/17 09:00 - Assessment/Plan Pt. was seen and eval. by me. I agree with the A/P by the STUDENT SUPPORT ADVISOR. She is resting comfortably. The HR the majority of the time is stable. She remains asymptomatic with the bradycardia.
[2017-03-04] MEDS ORDERED: Furosemide 40 MG/4 ML VIAL SLOW IVP SCH (18:00)
--- NOTE | 2017-03-04 18:09 | PRG ---
DATE OF SERVICE: 03/04/2017 SERVICE: Pulmonary Medicine. INTERVAL HISTORY: The patient is doing okay from a respiratory standpoint. Her white blood cell cou nt remains extraordinarily elevated. She denies any current fevers, chills, nausea, vomiting or diar claudio. She continues to cough almost continuously and is bringing up a little bit of sputum, but swal lows it down, and so we do not know the character of that. Otherwise, there has been no change to he r condition. PHYSICAL EXAMINATION: VITAL SIGNS: Afebrile, pulse 68, blood pressure 143/71, respirations 20, saturation 98% on 3-03/05 lit ers nasal cannula. GENERAL: Patient is awake, alert, no apparent distress. LUNGS: Excellent air entry with no prolonged expiratory phase. Rhonchi and crackles are present thr oughout bilateral lung cordero. No rhonchi clear with cough. HEART: Normal rate, regular. ABDOMEN: Soft, nontender, nondistended. Bowel sounds are positive. MUSCULOSKELETAL: No cyanosis or clubbing. There is diffuse 2+ pitting throughout which is more dram atically demonstrated in the sacral region. GENITOURINARY: She has Carroll catheter in place. NEUROLOGIC: Grossly nonfocal. LABORATORY DATA: 1. WBC 71,000, hemoglobin 6.5, platelets 129,000. A pH 7.33, pCO2 of 53, pO2 of 65. Sodium 148, po tassium 3.6, creatinine 0.77. Basic metabolic profile is otherwise unremarkable. Magnesium 1.7. Ur inalysis is unremarkable. ANCA and ESTEFANIA are negative. Rheumatoid factor is also negative. Fungal cu lture stain is negative to date. Flow cytometry demonstrates a bone marrow which was suggestive of c hronic myelodysplastic/myeloproliferative neoplasm though the immunophenotype did not demonstrate a m onoclonal proliferation of cells. 2. Influenza A is positive and B is negative. Urine culture and blood cultures x2 are unremarkable. ASSESSMENT: 1. Acute hypoxic respiratory failure. 2. Community-acquired pneumonia, secondary to influenza A. 3. Acute on chronic systolic heart failure. 4. Hypernatremia. 5. Renal insufficiency. 6. Septic arthritis, possible. 7. Bradycardia, episodic. PLAN: At this point, her leukemoid reaction is likely secondary to her chronic blood condition super imposed with acute infectious/inflammatory processes. As such, we will continue our current supporti ve care. She is just got started on Tamiflu. We will work on getting the patient negative over the next 24-48 hours. We will trend her white blood cell count and I will give her a unit of blood. In 24-48 hours, if her white blood cell count does not continue to improve, a tagged white blood cell sc an should be entertained. Potassium will be replaced today. Pulmonary or Critical Care will continu e to follow while she remains in this location.
[2017-03-04] MEDS: Oseltamivir 75 MG CAP PO SCH (20:54)
[2017-03-04] MEDS: Latanoprost 0.005% Ophth Soln 2.5 ml Bottle L EYE SCH (21:03)
[2017-03-05 04:51] LABS: Anion Gap 11 mmol/L (10-20); BUN (Urea Nitrogen) 32 mg/dL (9.8-20.1); Calc. Creatinine Clearance 58 mL/min (70-130); Calcium 8.4 mg/dL (7.8-10.44); Carbon Dioxide 33 mmol/L (23-31); Chloride 107 mmol/L (98-107); Estimated GFR-MDRD 71; Glucose 111 mg/dL (83-110); Magnesium 1.7 mg/dL (1.6-2.6); Phosphorus 3.9 mg/dL (2.3-4.7); Sodium 147 mmol/L (136-145)
[2017-03-05 04:56] LABS: White Blood Cell (WBC) Count 63.9 thou/uL (4.8-10.8)
[2017-03-05 05:18] LABS: Band 23 % (5-11); Differential Comment Atypical Mono-like; Lymphocytes 1 % (21-51); MDiff Complete? YES; Mean Corpuscular HGB CONC 30.7 g/dL (32.0-36.0); Mean Corpuscular Hemoglobin 29.6 pg (27.0-31.0); Mean Corpuscular Volume 96.3 fl (81.0-99.0); Mean Platelet Volume 12.3 fL (7.4-10.4); Metamyelocyte 4 % (0-0); Monocytes 26 % (0-10); Myelocyte 1 % (0-0); Neutrophil 39 % (42-75); PLT Morphology Comment Appears Adequate; Platelet Count 125 thou/uL (130-400); RBC Distribution Width 16.5 % (11.5-14.5); Red Blood Cell (RBC) Count 3.03 mill/uL (4.20-5.40)
[2017-03-05] MEDS: Levothyroxine Sodium 75 MCG TAB PO SCH (05:50)
[2017-03-05] MEDS: Losartan 25 MG TAB PO SCH (08:36)
[2017-03-05] MEDS: Furosemide 40 MG/4 ML VIAL SLOW IVP SCH (08:37)
[2017-03-05] MEDS: Oseltamivir 75 MG CAP PO SCH ×2 (08:37→21:34)
[2017-03-05] MEDS: Brimonidine Tartrate 0.2% Ophth Soln 5 ml Bottle EA EYE SCH ×2 (08:38→21:32)
[2017-03-05] MEDS: Dorzolamide HCl 2% Ophth Soln 10 ml Bottle EA EYE SCH ×2 (08:38→21:33)
[2017-03-05] MEDS: Timolol 0.5% Ophth Soln 5 ml Bottle EA EYE SCH ×2 (08:38→21:34)
--- NOTE | 2017-03-05 10:59 | PDOC.PN ---
- Subjective Encounter Start Date: 03/05/17 Encounter Start Time: 10:57 Patient seen and examined. No new complaints. No overnight events lethargic no family available. - Objective Resuscitation Status: Resuscitation Status DNR:Do Not Resuscitate MAR Reviewed: Yes Vital Signs & Weight: Vital Signs (12 hours) Temp Pulse Resp BP BP Pulse Ox 03/05/17 08:38 88 151/68 H 03/05/17 08:25 97.6 F 88 20 151/68 H 96 03/05/17 06:02 103 H 22 H 145/94 H 97 03/05/17 04:02 97.5 F L 64 22 H 158/73 H 92 L 03/05/17 02:11 73 24 H 143/72 H 93 L 03/05/17 01:03 97.7 F 81 20 137/69 99 03/05/17 00:05 72 24 H 132/55 L 95 Weight Admit Weight 143 lb Weight 157 lb 2 oz Most Recent Monitor Data Heart Rate from ECG 97 NIBP 129/75 NIBP BP-Mean 96 Respiration from ECG 32 SpO2 95 I&O: 03/04/17 03/05/17 03/06/17 06:59 06:59 06:59 Intake Total 700 1870 Output Total 526 2150 Balance 174 -280 Result Diagrams: 03/05/17 04:14 03/05/17 04:14 Phys Exam - Physical Examination Constitutional: NAD HEENT: sclera anicteric Neck: supple Respiratory: no wheezing, no rales Cardiovascular: RRR Gastrointestinal: soft Musculoskeletal: no edema Neurological: non-focal, moves all 4 limbs Psychiatric: normal affect Skin: no rash Dx/Plan (1) Altered mental status Code(s): R41.82 - ALTERED MENTAL STATUS, UNSPECIFIED Status: Acute (2) Edema Code(s): R60.9 - EDEMA, UNSPECIFIED Status: Acute (3) Fluid overload Code(s): E87.70 - FLUID OVERLOAD, UNSPECIFIED Status: Acute (4) ANTOINETTE (acute kidney injury) Code(s): N17.9 - ACUTE KIDNEY FAILURE, UNSPECIFIED Status: Acute Comment: I think this was a Vanc+Zosyn effect. off both. IVF upped by surgery while NPO and NGT to LIWS. Cr down to 1.35 on 02/19 and 1.3 on 02/20, 1.16 on 02/21 to 1.13 02/22. IVF's d/c'd (5) Septic hip Code(s): M00.9 - PYOGENIC ARTHRITIS, UNSPECIFIED Status: Acute Comment: Local care, ? d/c Ancef in next 24h (6) Hypothyroidism Code(s): E03.9 - HYPOTHYROIDISM, UNSPECIFIED Status: Chronic Qualifiers: Hypothyroidism type: acquired Qualified Code(s): E03.9 - Hypothyroidism, unspecified Comment: Continue Levothyroxine (7) Myelodysplasia (myelodysplastic syndrome) Code(s): D46.9 - MYELODYSPLASTIC SYNDROME, UNSPECIFIED Status: Chronic Comment: Oncology has seen, BMBx in OR 02/18 pending result. 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 BMBx back on 02/21, onc reviewed. MDS per Hematology service without plans for intervention. (8) Ileus Code(s): K56.7 - ILEUS, UNSPECIFIED Status: Suspected Comment: KUB negative for overt obstruction, + BM's currently and no emesis, npo x ice chips. surgery following. SBFT showed ileus or PSBO, repeat films neg for high grade obstruction. NGT pulled, diet to advance as tolerated. 02/21 added reglan as a propulsive agent, advancing diet, resolved - Plan cont current plan of care, continue antibiotics, PT/OT, drug abuse social worker, DVT proph w/heparin * . continue supportive care started on Tamiflu yesterday. check ua and urine culture nystatin prn Appreciated input from pulmonology and cardiology AM labs
--- NOTE | 2017-03-05 13:40 | PDOC.CTH ---
Cardiology Progress Note - Subjective No new issues. Continues to have episodes of bradycardia but mostly while sleeping now. - Objective Vital Signs Temp Pulse Resp BP BP Pulse Ox 03/05/17 08:38 88 151/68 H 03/05/17 08:25 97.6 F 88 20 151/68 H 96 03/05/17 06:02 103 H 22 H 145/94 H 97 03/05/17 04:02 97.5 F L 64 22 H 158/73 H 92 L 03/05/17 02:11 73 24 H 143/72 H 93 L Admit Weight 143 lb Weight 157 lb 2 oz 03/04/17 03/05/17 03/06/17 06:59 06:59 06:59 Intake Total 700 1870 Output Total 526 2150 Balance 174 -280 - Physical Examination General/Neuro: NAD Neck: no JVD present Lungs: unlabored respirations Heart: RRR Abdomen: NT/ND Extremities: + edema B (1+) - Telemetry Telemetry Rhythm: NSR - Labs Result Diagrams: 03/05/17 04:14 03/05/17 04:14 Troponin/CKMB Troponin I 0.026 ng/mL (< 0.028) 02/27/17 09:00 - Assessment/Plan 1. Hx of Bradycardia 2. Acute Resp. failure 3. Septic Rt hip with s/p I&D 4. HTN 5. Myelodysplasia - managed by oncology 6. ANTOINETTE 7. Ileus. 8. Hypothyroidism. 9. Edema - Improved. PLAN: - Bradycardia is asymptomatic and mostly while sleeping. - No indication for temporary pacing - Not a good candidate for a PPM due to current infection and weakened state. - Palliative care will see today.
[2017-03-05 14:27] LABS: Bilirubin Negative (Negative); Blood, Urine Large (Negative); Clarity CLOUDY (Clear); Glucose, Urine (Dipstick) Negative (Negative); Leukocyte Trace (Negative); Nitrite Negative (Negative); Protein, Urine (Dipstick) Negative (Neg-Trace); Specific Gravity, Urine 1.012 (1.002-1.036); Urobilinogen 0.2 mg/dL (0.2-1.0); pH, Urine 5.5 (5.0-9.0)
[2017-03-05 14:28] LABS: Bacteria/HPF None Seen HPF (None Seen); Pathc Cast-AUWi Flag 2.43 (0-2.49); Squamous Epithelial 0-3 HPF (0-3)
[2017-03-05 14:31] LABS: Yeast-AUWi Flag 179.8 (0-25.0)
[2017-03-05 14:43] LABS: Crystals/HPF 1+ URIC ACID HPF (Negative)
[2017-03-05 14:44] LABS: Yeast-All Forms 1+ HPF (None Seen)
[2017-03-05 14:45] LABS: Hyaline Casts/LPF 4-6 HYALINE CAST LPF (0-3 Hyaline); Other Casts/LPF 0-3 COARSE GRAN LPF (0-3 Hyaline)
--- NOTE | 2017-03-05 21:02 | PRG ---
DATE OF SERVICE: 03/05/2017 SERVICE: Pulmonary Medicine. INTERVAL HISTORY: The patient is doing fine from respiratory standpoint. She does apparently have r espiratory virus panel that was positive for respiratory syncytial virus. Going back in the history, it sounds like she may have come in to the hospital with this condition. Outside of that, there has been no interval change to her condition. Her mentation is doing fairly well today and indicates sh e is breathing comfortably. Her only complaint that is, her mouth is dry. There are no other overni ght events. PHYSICAL EXAMINATION: VITAL SIGNS: Afebrile currently. Pulse 82, blood pressure 145/75, respirations 20, saturation 92% o n 3 liters nasal cannula. GENERAL: The patient is awake and alert, in no apparent distress. LUNGS: Decreased air entry. Dependent crackles are present. HEART: Normal rate, regular. ABDOMEN: Soft, nontender, nondistended. Bowel sounds are positive. MUSCULOSKELETAL: No cyanosis or clubbing. Lower extremity pitting is improving a little bit. GENITOURINARY: Carroll catheter in place. NEUROLOGIC: Grossly nonfocal. LABORATORY DATA: WBC is down trending to 63.9, hemoglobin 9.0, platelets 125,000. Band count is sta ble at 23%, neutrophil count is 39%, which is also stable. Monocyte count is responding. Sodium 147 . Basic metabolic profile is otherwise unremarkable. Creatinine 0.77. Phosphorus and magnesium fal l within normal limits. Influenza A is positive from yesterday. Urine culture, blood cultures x2 ar e unremarkable. ASSESSMENT: 1. Acute hypoxic respiratory failure. 2. Community-acquired pneumonia, secondary to influenza A. 3. Acute on chronic systolic heart failure. 4. Hypernatremia. 5. Acute kidney injury, resolved. 6. Septic arthritis, possible. 7. Bradycardia, resolved. PLAN: We will continue our efforts at diuresing the patient till she arrives to euvolemia. With her blood transfusion, hopefully a leukemoid reaction will slowly start to improve. Pulmonary, we will continue to follow for an additional 24 hours. If the white blood cell count fails to normalize, tag red blood cell scan can be considered.
[2017-03-05] MEDS: Latanoprost 0.005% Ophth Soln 2.5 ml Bottle L EYE SCH (21:33)
[2017-03-05] MEDS: Heparin 5,000 UNITS/ML VIAL SC SCH (21:33)
[2017-03-05] MEDS: Nystatin Cream 15 GM TUBE TOP SCH (22:12)
[2017-03-06] MEDS: Levothyroxine Sodium 75 MCG TAB PO SCH (05:00)
[2017-03-06 05:26] LABS: White Blood Cell (WBC) Count 55.3 thou/uL (4.8-10.8)
[2017-03-06 05:36] LABS: Anion Gap 13 mmol/L (10-20); BUN (Urea Nitrogen) 31 mg/dL (9.8-20.1); Calc. Creatinine Clearance 61 mL/min (70-130); Calcium 8.3 mg/dL (7.8-10.44); Carbon Dioxide 31 mmol/L (23-31); Chloride 104 mmol/L (98-107); Estimated GFR-MDRD 75; Glucose 92 mg/dL (83-110); Potassium 3.4 mmol/L (3.5-5.1); Sodium 145 mmol/L (136-145)
[2017-03-06 06:14] LABS: Band 19 % (5-11); Hemoglobin 8.9 g/dL (12.0-16.0); Hypochromia SLIGHT = 6-15 cells (100X) (0-5/hpf); Lymphocytes 10 % (21-51); MDiff Complete? YES; Mean Corpuscular HGB CONC 30.2 g/dL (32.0-36.0); Mean Corpuscular Hemoglobin 29.1 pg (27.0-31.0); Mean Corpuscular Volume 96.5 fl (81.0-99.0); Mean Platelet Volume 12.2 fL (7.4-10.4); Metamyelocyte 10 % (0-0); Monocytes 24 % (0-10); Myelocyte 2 % (0-0); Neutrophil 32 % (42-75); Nucleated RBC 1 % (0); PLT Morphology Comment Appears Decreased; Platelet Count 119 thou/uL (130-400); RBC Distribution Width 16.7 % (11.5-14.5); Reactive Lymphocytes 3 % (0-10); Red Blood Cell (RBC) Count 3.05 mill/uL (4.20-5.40)
[2017-03-06] MEDS: Heparin 5,000 UNITS/ML VIAL SC SCH ×2 (09:03→22:00)
[2017-03-06] MEDS: Oseltamivir 75 MG CAP PO SCH ×2 (09:03→22:00)
[2017-03-06] MEDS: Furosemide 40 MG/4 ML VIAL SLOW IVP SCH (09:03)
[2017-03-06] MEDS: Nystatin Cream 15 GM TUBE TOP SCH ×2 (09:03→22:01)
[2017-03-06] MEDS: Losartan 25 MG TAB PO SCH (09:04)
[2017-03-06] MEDS: Brimonidine Tartrate 0.2% Ophth Soln 5 ml Bottle EA EYE SCH ×2 (09:04→21:59)
[2017-03-06] MEDS: Timolol 0.5% Ophth Soln 5 ml Bottle EA EYE SCH ×2 (09:04→22:01)
[2017-03-06] MEDS: Dorzolamide HCl 2% Ophth Soln 10 ml Bottle EA EYE SCH ×2 (09:05→21:59)
--- NOTE | 2017-03-06 12:31 | PDOC.CTH ---
Cardiology Progress Note - Subjective No new issues or concerns. No syncope or presyncope. No dizziness. - Objective Vital Signs Temp Pulse Resp BP Pulse Ox 03/06/17 09:04 97 03/06/17 09:00 97.2 F L 97 18 96 03/06/17 08:52 97.2 F L 97 18 139/80 96 03/06/17 04:00 97.9 F 71 18 135/62 94 L Admit Weight 143 lb Weight 157 lb 5 oz 03/05/17 03/06/17 03/07/17 06:59 06:59 06:59 Intake Total 1870 680 Output Total 2150 700 Balance -280 -20 - Physical Examination General/Neuro: NAD Neck: no JVD present Lungs: unlabored respirations Heart: RRR Abdomen: NT/ND Extremities: + edema B (trace) - Telemetry Telemetry Rhythm: S Simeon - Labs Result Diagrams: 03/06/17 04:20 03/06/17 04:20 Troponin/CKMB Troponin I 0.026 ng/mL (< 0.028) 02/27/17 09:00 - Assessment/Plan 1. Bradycardia, asymptomatic 2. Influenza type A 3. Moderate aortic valve stenosis. 4. Septic right hip s/p I&D. PLAN: - Bradycardia is asymptomatic and mostly while sleeping. - No indication for temporary pacing - Not a good candidate for a PPM due to current infection and weakened state. - Replace K. - Will sign off. Please call with any questions.
--- NOTE | 2017-03-06 14:49 | PDOC.PN ---
- Subjective Encounter Start Date: 03/06/17 Encounter Start Time: 14:48 Subjective: no new complaints - Objective Resuscitation Status: Resuscitation Status DNR:Do Not Resuscitate MAR Reviewed: Yes Vital Signs & Weight: Vital Signs (12 hours) Temp Pulse Resp BP Pulse Ox 03/06/17 12:00 98.2 F 96 18 150/70 H 88 L 03/06/17 09:04 97 03/06/17 09:00 97.2 F L 97 18 96 03/06/17 08:52 97.2 F L 97 18 139/80 96 03/06/17 04:00 97.9 F 71 18 135/62 94 L Weight Admit Weight 143 lb Weight 157 lb 5 oz Most Recent Monitor Data Heart Rate from ECG 97 NIBP 129/75 NIBP BP-Mean 96 Respiration from ECG 32 SpO2 95 I&O: 03/05/17 03/06/17 03/07/17 06:59 06:59 06:59 Intake Total 1870 680 Output Total 2150 700 Balance -280 -20 Result Diagrams: 03/06/17 04:20 03/06/17 04:20 Phys Exam - Physical Examination Constitutional: NAD HEENT: PERRLA, moist MMs, sclera anicteric Neck: supple, full ROM Respiratory: no wheezing, clear to auscultation bilateral Cardiovascular: RRR Gastrointestinal: soft, non-tender, positive bowel sounds Musculoskeletal: edema present Neurological: moves all 4 limbs Psychiatric: normal affect Skin: no rash Dx/Plan (1) Arthritis of right hip Code(s): M16.11 - UNILATERAL PRIMARY OSTEOARTHRITIS, RIGHT HIP Status: Acute Comment: s/p I&D, bacterial culture neg so far. No path, cyto, tissue. pt feels markedly better. suspect noninfectious, RF neg, ESTEFANIA and ANCA pending. no AFB or fungal cultures or smears. hold abx fo rnow. no other effusions or pain at present. ESR 70s and CRP 15+. Cultures remained negative, fungal cx neg to date, no AFB cultures sent. feels markedly better and able to walk on. Would NOT rx for bacterial infection at this point. TO OR 02/18 for washout and look. WBC trending up, but little in the way of symptoms, but again, would not expect much symptoms after synovectomy (2) Ileus Code(s): K56.7 - ILEUS, UNSPECIFIED Status: Suspected Comment: KUB negative for overt obstruction, + BM's currently and no emesis, npo x ice chips. surgery following. SBFT showed ileus or PSBO, repeat films neg for high grade obstruction. NGT pulled, diet to advance as tolerated. 02/21 added reglan as a propulsive agent, advancing diet, resolved (3) Normocytic anemia Code(s): D64.9 - ANEMIA, UNSPECIFIED Status: Acute Comment: Likely due to myelodysplastic process, transfuse 1u PRBC's today, repeat CBC in am (4) Right hip joint effusion Code(s): M25.451 - EFFUSION, RIGHT HIP Status: Acute Comment: drained. Now with hematoma drained, cultures pending. washout 02/18. follow up on findings. Cultures remaining negative (5) Septic hip Code(s): M00.9 - PYOGENIC ARTHRITIS, UNSPECIFIED Status: Acute Comment: Local care, ? d/c Ancef in next 24h (6) Status post incision and drainage Code(s): Z98.890 - OTHER SPECIFIED POSTPROCEDURAL STATES Status: Acute Comment: see above #1 (7) Hypothyroidism Code(s): E03.9 - HYPOTHYROIDISM, UNSPECIFIED Status: Chronic Qualifiers: Hypothyroidism type: acquired Qualified Code(s): E03.9 - Hypothyroidism, unspecified Comment: Continue Levothyroxine (8) Myelodysplasia (myelodysplastic syndrome) Code(s): D46.9 - MYELODYSPLASTIC SYNDROME, UNSPECIFIED Status: Chronic Comment: Oncology has seen, BMBx in OR 02/18 pending result. 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 BMBx back on 02/21, onc reviewed. MDS per Hematology service without plans for intervention. (9) ANTOINETTE (acute kidney injury) Code(s): N17.9 - ACUTE KIDNEY FAILURE, UNSPECIFIED Status: Acute Comment: I think this was a Vanc+Zosyn effect. off both. IVF upped by surgery while NPO and NGT to LIWS. Cr down to 1.35 on 02/19 and 1.3 on 02/20, 1.16 on 02/21 to 1.13 02/22. IVF's d/c'd (10) Acute respiratory failure with hypoxemia Code(s): J96.01 - ACUTE RESPIRATORY FAILURE WITH HYPOXIA Status: Acute (11) Altered mental status Code(s): R41.82 - ALTERED MENTAL STATUS, UNSPECIFIED Status: Acute (12) Bradycardia Code(s): R00.1 - BRADYCARDIA, UNSPECIFIED Status: Acute (13) Congestive heart failure (CHF) Code(s): I50.9 - HEART FAILURE, UNSPECIFIED Status: Acute Qualifiers: Congestive heart failure type: diastolic Congestive heart failure chronicity: acute Qualified Code(s): I50.31 - Acute diastolic (congestive) heart failure (14) Edema Code(s): R60.9 - EDEMA, UNSPECIFIED Status: Acute (15) Hypokalemia Code(s): E87.6 - HYPOKALEMIA Status: Acute Comment: KCL 40meq TID, d/c Lasix , repeat K+ level in am - Plan cont current plan of care, PT/OT improved condition disp to INPATIENT REHAB * .
[2017-03-06] MEDS: Latanoprost 0.005% Ophth Soln 2.5 ml Bottle L EYE SCH (22:01)
[2017-03-07] MEDS: Levothyroxine Sodium 75 MCG TAB PO SCH (05:08)
[2017-03-07] MEDS: Timolol 0.5% Ophth Soln 5 ml Bottle EA EYE SCH ×2 (08:43→20:15)
[2017-03-07] MEDS: Furosemide 40 MG/4 ML VIAL SLOW IVP SCH (08:43)
[2017-03-07] MEDS: Heparin 5,000 UNITS/ML VIAL SC SCH ×2 (08:43→20:14)
[2017-03-07] MEDS: Dorzolamide HCl 2% Ophth Soln 10 ml Bottle EA EYE SCH ×2 (08:43→20:13)
[2017-03-07] MEDS: Oseltamivir 75 MG CAP PO SCH ×2 (08:43→20:14)
[2017-03-07] MEDS: Losartan 25 MG TAB PO SCH (08:43)
[2017-03-07] MEDS: Brimonidine Tartrate 0.2% Ophth Soln 5 ml Bottle EA EYE SCH ×2 (08:44→20:15)
[2017-03-07] MEDS: Nystatin Cream 15 GM TUBE TOP SCH ×2 (08:44→20:16)
[2017-03-07 10:18] LABS: Fungus Culture Final report (.)
[2017-03-07 10:18] LABS: Fungus Culture Final report (.)
--- NOTE | 2017-03-07 14:44 | PRG ---
DATE OF SERVICE: 03/07/2017 SUBJECTIVE: The patient was seen and examined at the bedside. She is doing relatively well, althoug h she was found to have some shortness of breath and she requires slightly more O2 at this point. OBJECTIVE: VITAL SIGNS: Blood pressure is 131/60, pulse is 94, temperature is 99.2, respiratory rate is 18 and O2 saturation is 93% on 3.5 liters by nasal cannula. HEENT: Head is atraumatic and normocephalic. Pupils are responding to light properly. Sclerae is n onicteric. Oral mucosa is moist. NECK: Supple. LUNGS: Breath sounds slightly diminished at both bases. HEART: S1, S2 normal, regular. No S3, no S4. There is a systolic murmur most audible at the left s ternal border, 2/6. ABDOMEN: Soft, mildly distended. Bowel sounds are present. No organomegaly. EXTREMITIES: No clubbing, cyanosis or edema. Right hip is dressed with a dressing. NEUROLOGIC: She follows my commands. She is able to move all 4 extremities. There is no any motor deficits. IMPRESSION: 1. Right septic hip. 2. Hypothyroidism. 3. Myelodysplastic syndrome. 4. Acute kidney injury. 5. Acute respiratory failure with hypoxemia, improved. 6. Altered mental status, acute, improved. 7. Bradycardia. No indication for a pacing at this point. 8. History of congestive heart failure, acute diastolic. 9. Hypokalemia, improved. 10. Normocytic anemia. 11. Ileus. PLAN: To continue current regimen and as soon as we have confirmation from the insurance company [employer] t she can go to the rehab and she would be transferred there. Her O2 requirement was slightly high t his morning. We will obtain a chest x-ray to see whether there is worsening of some pleural effusion or any other process and we will continue her O2 supplementation as above.
--- NOTE | 2017-03-07 15:21 | RAD ---
PORTABLE UPRIGHT FRONTAL CHEST RADIOGRAPH: Date: 03-07-17 Comparison: 03-03-17 History: Worsening hypoxemia. FINDINGS: There is pulmonary vascular prominence with increased linear interstitial density in bilateral perihi lar regions, nonspecific and stable. There is no pneumothorax seen. There is focal opacity in both lung bases suggesting a combination of partial consolidation/collapse of the lower lobes and bilateral pleural effusions. These findings are stable when compared to . IMPRESSION: Significant persistent interstitial opacity in the perihilar regions with nonspecific persistent biba silar pleural and parenchymal opacity. Findings may be on the basis of infectious pneumonitis or pulm onary edema. Follow up to resolution is advised. POS: BRUNILDAH
[2017-03-07] MEDS: Latanoprost 0.005% Ophth Soln 2.5 ml Bottle L EYE SCH (20:14)
--- NOTE | 2017-03-07 22:34 | PRG ---
DATE OF SERVICE: 03/07/2017 SERVICE: Pulmonary Medicine. INTERVAL HISTORY: The patient is doing fine from a respiratory standpoint. She cannot provide any a dditional elements of the history. She denies any current fevers, chills. That being said, her hist ory is unreliable because of her underlying cognitive impairment. PHYSICAL EXAMINATION: VITAL SIGNS: Afebrile with a T-max of 99.2, pulse 80, blood pressure 134/61, respirations 18, satura tion 94% on 4 liters nasal cannula. GENERAL: Patient is awake, alert, in no apparent distress. LUNGS: Decent air entry with crackles present. I do not appreciate prolong expiratory phase. HEART: Normal rate, regular. ABDOMEN: Soft, nontender, nondistended. Bowel sounds are positive. MUSCULOSKELETAL: No cyanosis or clubbing. No pitting in the bilateral lower extremities. That larry burgess said, she has got 2+ pitting in the sacral region. GENITOURINARY: Carroll catheter in place. NEUROLOGIC: Grossly nonfocal. LABORATORY DATA: BNP 333, which is down trending gently compared to prior. Urine culture is growing yeast species. Nasal swab was positive for influenza A, but negative for B. All other culture resu lts are negative to date. IMAGING: Chest x-ray demonstrates persistent interstitial opacity in the perihilar regions. ASSESSMENT: 1. Acute hypoxic respiratory failure. 2. Community-acquired pneumonia, secondary to influenza A. 3. Acute on chronic systolic heart failure. 4. Hypernatremia. 5. Septic arthritis, possible. 6. Urinary tract infection secondary to possible yeast infection. PLAN: The patient will remain in the hospital for now. If the white blood cell count is not improvi ng significantly tomorrow, I think it would be reasonable to empirically treat her with a course of a ntifungal agents. Pulmonary Critical Care will continue to follow while she remains in this location for the time being.
[2017-03-08 05:30] LABS: White Blood Cell (WBC) Count 68.5 thou/uL (4.8-10.8)
[2017-03-08 05:38] LABS: Anion Gap 14 mmol/L (10-20); BUN (Urea Nitrogen) 18 mg/dL (9.8-20.1); Calc. Creatinine Clearance 64 mL/min (70-130); Carbon Dioxide 37 mmol/L (23-31); Chloride 99 mmol/L (98-107); Estimated GFR-MDRD 79; Glucose 100 mg/dL (83-110); Magnesium 1.3 mg/dL (1.6-2.6); Phosphorus 3.4 mg/dL (2.3-4.7); Sodium 147 mmol/L (136-145)
[2017-03-08 05:41] LABS: Potassium 2.7 mmol/L (3.5-5.1)
[2017-03-08 06:18] LABS: Anisocytosis SLIGHT = 6-15 cells (100X) (0-5/hpf); Band 14 % (5-11); Hemoglobin 9.1 g/dL (12.0-16.0); Lymphocytes 9 % (21-51); MDiff Complete? YES; Mean Corpuscular Hemoglobin 28.7 pg (27.0-31.0); Mean Platelet Volume 12.1 fL (7.4-10.4); Monocytes 32 % (0-10); Myelocyte 5 % (0-0); Neutrophil 40 % (42-75); Platelet Count 88 thou/uL (130-400); Polychromasia SLIGHT = 2-3 cells (100X) (0-2/hpf); RBC Distribution Width 17.1 % (11.5-14.5); Red Blood Cell (RBC) Count 3.18 mill/uL (4.20-5.40)
[2017-03-08] MEDS: Levothyroxine Sodium 75 MCG TAB PO SCH (06:33)
[2017-03-08] MEDS: Dorzolamide HCl 2% Ophth Soln 10 ml Bottle EA EYE SCH ×2 (08:00→22:37)
[2017-03-08] MEDS: Timolol 0.5% Ophth Soln 5 ml Bottle EA EYE SCH ×2 (08:00→22:36)
[2017-03-08] MEDS: Nystatin Cream 15 GM TUBE TOP SCH ×2 (08:00→22:30)
[2017-03-08] MEDS: Brimonidine Tartrate 0.2% Ophth Soln 5 ml Bottle EA EYE SCH ×2 (08:00→22:27)
[2017-03-08] MEDS: Oseltamivir 75 MG CAP PO SCH ×2 (08:01→22:29)
[2017-03-08] MEDS: Losartan 25 MG TAB PO SCH (08:01)
[2017-03-08] MEDS ORDERED: Magnesium Sulfate 4 GM in Sodium Chloride 0.9% 250 ML 250 ML IVPB SCH (08:45)
[2017-03-08] MEDS: Micafungin 100 MG in Sodium Chloride 0.9% 100 ML IVPB SCH (09:26)
[2017-03-08] MEDS: Heparin 5,000 UNITS/ML VIAL SC SCH ×2 (09:27→22:36)
[2017-03-08] MEDS: Furosemide 40 MG/4 ML VIAL SLOW IVP SCH (10:50)
[2017-03-08] MEDS ORDERED: Fluconazole In NaCl,Iso-Osm 200 MG in Premix Bag 1 BAG IVPB SCH ×2 (15:00)
--- NOTE | 2017-03-08 16:18 | PRG ---
DATE OF SERVICE: 03/08/2017 SUBJECTIVE: The patient is seen and examined at bedside. She does not have much complaints to offer , although she still has some dry cough. OBJECTIVE: VITAL SIGNS: Blood pressure is 127/58, pulse is 81, temperature is 97.0, respiratory rate is 16, and O2 saturations 96% on 3-1/2 liters by nasal cannula. HEENT: Normocephalic. PERRLA. NECK: Supple. LUNGS: Breath sounds diminished at both bases. CARDIOVASCULAR: S1, S2 normal. Systolic murmur present at the left sternal border, most audible 2/6 . ABDOMEN: Soft, nontender, nondistended. EXTREMITIES: Right hip is dressed with a dressing. NEUROLOGIC: Not changed since the day before. She moves her all four extremities. She follows comm ands. LABORATORY DATA: White count of 68.5, hemoglobin 9.1, hematocrit 31.4, platelet count is 88,000. He r sodium is 147, potassium 2.7. Microbiology: Urine culture is growing yeast spices less than 5000 colonies. IMPRESSION: 1. Right septic hip. 2. Hypothyroidism. 3. Myelodysplastic syndrome. 4. Acute kidney injury, improved. 5. Acute respiratory failure with hypoxemia, improved, but still requiring 3-1/2 liters of oxygen. 6. Altered mental status, acute, improved. 7. Bradycardia. No indication for pacing at this point per Cardiology. 8. History of congestive heart failure. 9. Hypokalemia, improved. 10. Normocytic anemia. 11. Ileus, improved. 12. Positive urine culture for yeast, less than 5000 colonies. PLAN: Start her on Diflucan as recommended by Dr. Amin 200 mg IV piggyback every 24 hours. Graham nue her physical therapy. We will continue her furosemide 40 mg slow IV push once a day. We will co ntinue her Synthroid for her hypothyroidism replacement and we will try to arrange residential fa cility as soon as that is arranged she is going to be transferred there.
[2017-03-08] MEDS: Latanoprost 0.005% Ophth Soln 2.5 ml Bottle L EYE SCH (22:28)
--- NOTE | 2017-03-08 23:28 | PRG ---
DATE OF SERVICE: 03/08/2017 SERVICE: Pulmonary Medicine. INTERVAL HISTORY: The patient is doing fine from a respiratory standpoint. She just got a shift fro m one side to the other side and so she is complaining of some right hip discomfort. Outside of that , otherwise there has been no interval changes in her condition. She remains presently demented. Reynaldo glaser has no complaints of shortness of breath, though she is presently breathing right now. PHYSICAL EXAMINATION: VITAL SIGNS: Afebrile, pulse is 78, blood pressure 110/55, respirations 14, saturation 95% on 3 lite rs nasal cannula. GENERAL: Patient is awake and alert, in no apparent distress. LUNGS: Excellent air entry. Dependent crackles are present. They are much improved. HEART: Normal rate, regular. ABDOMEN: Soft, nontender, nondistended. Bowel sounds are positive. MUSCULOSKELETAL: No cyanosis or clubbing. No pitting in the bilateral lower extremities. NEUROLOGIC: Grossly nonfocal. LABORATORY DATA: WBC 68.5, hemoglobin 9.1, platelets 88,000. Her monocyte count is increasing. Ban d count is actually decreasing as is the total neutrophil count. Urine culture is growing yeast. ASSESSMENT: 1. Acute hypoxic respiratory failure. 2. Community-acquired pneumonia, secondary to influenza A. 3. Acute on chronic systolic heart failure. 4. Hypernatremia. 5. Septic arthritis, possible. 6. Urinary tract infection secondary to possible yeast infection. PLAN: The patient is doing okay from a respiratory standpoint. It is not clear where this white blo od cell count is coming from. Antifungal coverage is going to empirically be initiated. If the [facility] e blood cell count fails to make a meaningful improvement, we will need to make certain hematology as a good plan in place to investigate this thing. I will follow intermittently during this hospital s [facility]. If assistance is needed over the weekend from Critical Care Services, please give a phone call.
[2017-03-09] MEDS: Levothyroxine Sodium 75 MCG TAB PO SCH (05:34)
[2017-03-09 06:17] LABS: Anion Gap 14 mmol/L (10-20); BUN (Urea Nitrogen) 15 mg/dL (9.8-20.1); Calc. Creatinine Clearance 63 mL/min (70-130); Calcium 8.4 mg/dL (7.8-10.44); Carbon Dioxide 36 mmol/L (23-31); Chloride 101 mmol/L (98-107); Estimated GFR-MDRD 82; Glucose 124 mg/dL (83-110); Phosphorus 1.6 mg/dL (2.3-4.7); Potassium 3.8 mmol/L (3.5-5.1); Sodium 147 mmol/L (136-145)
[2017-03-09 06:42] LABS: Band 9 % (5-11); Hemoglobin 8.7 g/dL (12.0-16.0); Hypochromia SLIGHT = 6-15 cells (100X) (0-5/hpf); Lymphocytes 12 % (21-51); MDiff Complete? YES; Mean Corpuscular HGB CONC 29.4 g/dL (32.0-36.0); Mean Corpuscular Hemoglobin 29.1 pg (27.0-31.0); Mean Platelet Volume 13.5 fL (7.4-10.4); Metamyelocyte 8 % (0-0); Monocytes 39 % (0-10); Myelocyte 2 % (0-0); Neutrophil 30 % (42-75); PLT Morphology Comment Appears Decreased; Platelet Count 77 thou/uL (130-400); RBC Distribution Width 17.1 % (11.5-14.5); White Blood Cell (WBC) Count 81.9 thou/uL (4.8-10.8)
[2017-03-09] MEDS: Nystatin Cream 15 GM TUBE TOP SCH ×2 (09:24→20:29)
[2017-03-09] MEDS: Furosemide 40 MG TAB PO SCH (09:27)
[2017-03-09] MEDS: Heparin 5,000 UNITS/ML VIAL SC SCH ×2 (09:27→20:29)
[2017-03-09] MEDS: Brimonidine Tartrate 0.2% Ophth Soln 5 ml Bottle EA EYE SCH ×2 (09:27→20:28)
[2017-03-09] MEDS: Dorzolamide HCl 2% Ophth Soln 10 ml Bottle EA EYE SCH ×2 (09:28→20:29)
[2017-03-09] MEDS: Oseltamivir 75 MG CAP PO SCH (09:29)
[2017-03-09] MEDS: Timolol 0.5% Ophth Soln 5 ml Bottle EA EYE SCH ×2 (09:29→20:28)
[2017-03-09] MEDS: Losartan 25 MG TAB PO SCH (09:29)
[2017-03-09] MEDS: Micafungin 100 MG in Sodium Chloride 0.9% 100 ML IVPB SCH (09:29)
[2017-03-09 18:54] LABS: Bilirubin Negative (Negative); Blood, Urine Large (Negative); Clarity CLOUDY (Clear); Glucose, Urine (Dipstick) Negative (Negative); Leukocyte Small (Negative); Nitrite Negative (Negative); Protein, Urine (Dipstick) 30 mg/dL (Neg-Trace); Specific Gravity, Urine 1.014 (1.002-1.036); Urobilinogen 0.2 mg/dL (0.2-1.0); pH, Urine 7.5 (5.0-9.0)
[2017-03-09 18:57] LABS: Bacteria/HPF 1+ HPF (None Seen); Hyaline Casts/LPF 0-3 HYALINE CAST LPF (0-3 Hyaline); Pathc Cast-AUWi Flag 0.27 (0-2.49); RBC/HPF GREATER THAN 50-TNTC HPF (0-3); Squamous Epithelial 0-3 HPF (0-3)
--- NOTE | 2017-03-09 19:01 | PRG ---
DATE OF SERVICE: 03/09/2017 SUBJECTIVE: The patient is seen and examined at the bedside. She is doing quite well. She does not have much complaints except for the food which does not taste while she is not in any pain. OBJECTIVE: VITAL SIGNS: Blood pressure is 118/57, O2 saturation 96% on 3.5 liters by nasal cannula, respiratory rate is 18, pulse is 92 and temperature is 97.7. HEENT: Her pupils are responding to light properly. Sclerae is nonicteric. Oral mucosa is moist. LUNGS: Several rales at the left base with few wheezes. HEART: S1 and S2 normal. No S3, no S4. Systolic murmur 3/6 at the left sternal border. ABDOMEN: Soft, nontender and nondistended. EXTREMITIES: No clubbing or cyanosis. NEUROLOGIC: She follows my commands. All 4 extremities are moving. LABORATORY AND IMAGING DATA: Showed a white count of 81.9, hemoglobin of 8.7, hematocrit 29.[address] atelet count is 77,000. Phosphorus is 1.6, glucose 124, sodium of 147, potassium of 3.8, chloride 10 1, CO2 of 36, BUN 15 and creatinine 0.68. Chest x-ray which was done on the 4th showed . IMPRESSION: 1. Community-acquired pneumonia secondary to influenza A. 2. Hypernatremia. 3. Septic arthritis. 4. Urinary tract infection secondary to possible yeast infection. 5. Acute on chronic systolic heart failure. 6. Myelodysplastic syndrome. 7. Hypothyroidism. 8. Bradycardia, without indication for pacing at this point since it happens only at night and patie nt is asymptomatic. 9. Normocytic anemia. 10. Elevated white count. PLAN: Dr. Amin recommended to treat the patient with antifungal as possible cause of her problem. He stopped the Diflucan and started her on micafungin IV daily and also ordered transfer to [facility] rehab. It is postponed until we treat her with antifungal and see whether this causes some improv ement of her white count. Also, since her phosphorus is running on the lower side, she is going to h ave 1 pack of phosphorus and we will continue the rest of the regimen as before.
[2017-03-09 19:03] LABS: Renal Epithelial None Seen HPF (0-3); Transitional Epithelial NONE SEEN HPF (0-3)
[2017-03-09] MEDS: Latanoprost 0.005% Ophth Soln 2.5 ml Bottle L EYE SCH (20:28)
[2017-03-10] MEDS: Levothyroxine Sodium 75 MCG TAB PO SCH (05:23)
[2017-03-10 06:14] LABS: Hemoglobin 8.1 g/dL (12.0-16.0); Mean Corpuscular HGB CONC 29.5 g/dL (32.0-36.0); Mean Corpuscular Hemoglobin 29.2 pg (27.0-31.0); Mean Corpuscular Volume 99.1 fl (81.0-99.0); Mean Platelet Volume 13.3 fL (7.4-10.4); Platelet Count 67 thou/uL (130-400); RBC Distribution Width 17.3 % (11.5-14.5); Red Blood Cell (RBC) Count 2.79 mill/uL (4.20-5.40); White Blood Cell (WBC) Count 94.2 thou/uL (4.8-10.8)
[2017-03-10 06:24] LABS: Anion Gap 11 mmol/L (10-20); BUN (Urea Nitrogen) 14 mg/dL (9.8-20.1); Calc. Creatinine Clearance 68 mL/min (70-130); Calcium 8.4 mg/dL (7.8-10.44); Carbon Dioxide 37 mmol/L (23-31); Chloride 100 mmol/L (98-107); Estimated GFR-MDRD Greater than 90; Glucose 78 mg/dL (83-110); Magnesium 1.7 mg/dL (1.6-2.6); Potassium 3.1 mmol/L (3.5-5.1); Sodium 145 mmol/L (136-145)
[2017-03-10 06:28] LABS: Band 8 % (5-11); Lymphocytes 4 % (21-51); MDiff Complete? YES; Metamyelocyte 3 % (0-0); Monocytes 39 % (0-10); Myelocyte 4 % (0-0); Neutrophil 42 % (42-75); PLT Morphology Comment Appears Decreased
[2017-03-10] MEDS: Heparin 5,000 UNITS/ML VIAL SC SCH ×2 (07:10→20:59)
[2017-03-10] MEDS: Nystatin Cream 15 GM TUBE TOP SCH ×2 (07:17→20:53)
[2017-03-10] MEDS: Furosemide 40 MG TAB PO SCH (08:36)
[2017-03-10] MEDS: Brimonidine Tartrate 0.2% Ophth Soln 5 ml Bottle EA EYE SCH ×3 (08:36→21:01)
[2017-03-10] MEDS: Losartan 25 MG TAB PO SCH (08:36)
[2017-03-10] MEDS: Timolol 0.5% Ophth Soln 5 ml Bottle EA EYE SCH ×3 (09:41→21:01)
[2017-03-10] MEDS: Micafungin 100 MG in Sodium Chloride 0.9% 100 ML IVPB SCH (09:41)
[2017-03-10] MEDS: Dorzolamide HCl 2% Ophth Soln 10 ml Bottle EA EYE SCH ×3 (10:33→21:01)
--- NOTE | 2017-03-10 14:20 | PDOC.PN ---
- Subjective Encounter Start Date: 03/10/17 Encounter Start Time: 07:40 Pt seen for followup re: leukocytosis. Denies chest pain, shortness of breath, fevers or chills. - Objective Resuscitation Status: Resuscitation Status DNR:Do Not Resuscitate MAR Reviewed: Yes Vital Signs & Weight: Vital Signs (12 hours) Temp Pulse Pulse Pulse Resp BP BP 03/10/17 12:15 82 83 138/68 132/73 03/10/17 11:20 97.5 F L 76 20 03/10/17 08:35 97.8 F 102 H 20 03/10/17 07:53 97.8 F 102 H 20 03/10/17 04:00 97.9 F 95 20 BP Pulse Ox 03/10/17 12:15 03/10/17 11:20 120/57 L 97 03/10/17 08:35 94 L 03/10/17 07:53 154/67 H 94 L 03/10/17 04:00 135/60 97 Weight Admit Weight 143 lb Weight 148 lb 9.6 oz Most Recent Monitor Data Heart Rate from ECG 97 NIBP 129/75 NIBP BP-Mean 96 Respiration from ECG 32 SpO2 95 I&O: 03/09/17 03/10/17 03/11/17 06:59 06:59 06:59 Intake Total 1440 1420 Output Total 2650 1350 Balance -1210 70 Result Diagrams: 03/10/17 04:08 03/10/17 04:08 EKG Reviewed by me: Yes (Tele: NSR) Phys Exam - Physical Examination Constitutional: NAD HEENT: moist MMs Neck: supple Respiratory: clear to auscultation bilateral Cardiovascular: RRR Neurological: moves all 4 limbs Psychiatric: normal affect Dx/Plan (1) Leukocytosis Code(s): D72.829 - ELEVATED WHITE BLOOD CELL COUNT, UNSPECIFIED Status: Acute (2) Hypothyroidism Code(s): E03.9 - HYPOTHYROIDISM, UNSPECIFIED Status: Chronic Qualifiers: Hypothyroidism type: acquired Qualified Code(s): E03.9 - Hypothyroidism, unspecified Comment: Continue Levothyroxine (3) Myelodysplasia (myelodysplastic syndrome) Code(s): D46.9 - MYELODYSPLASTIC SYNDROME, UNSPECIFIED Status: Chronic - Plan * . Worsening leucocytosis, likely due to MDS. May need oncology re-eval next week. Continue antifungals. Likely for Inpt rehab once acute issues resolved. Review of Systems - Review of Systems Constitutional: weakness Cardiovascular: negative: chest pain, palpitations, orthopnea, paroxysmal nocturnal dyspnea, edema, light headedness Gastrointestinal: negative: Nausea, Vomiting, Abdominal Pain, Diarrhea, Constipation, Melena, Hematochezia - Medications/Allergies Allergies/Adverse Reactions: Allergies Allergy/AdvReac Type Severity Reaction Status Date / Time No Known Drug Allergies Allergy Verified 02/04/17 22:55 Medications: Current Medications Acetaminophen (Tylenol) 1,000 mg PO Q6H PRN PRN Reason: Moderate to Severe Pain (6-10) Last Admin: 02/25/17 08:55 Dose: 1,000 mg Albuterol Sulfate (Ventolin) 2.5 mg NEB Q2H PRN PRN Reason: SOB &/or Wheezing Last Admin: 02/24/17 14:04 Dose: 2.5 mg Albuterol/Ipratropium (Duoneb) 3 ml NEB [id number] PRN PRN Reason: SOB &/or Wheezing Brimonidine Tartrate (Alphagan 0.2% Ophth Soln) 0 drop EA EYE BID [facility] Last Admin: 03/10/17 08:36 Dose: 1 drp Dorzolamide HCl (Trusopt 2% Ophth Soln) 1 drop EA EYE BID [facility] Last Admin: 03/10/17 10:33 Dose: 1 drp Furosemide (Lasix) 40 mg PO DAILY-AC [facility] Last Admin: 03/10/17 08:36 Dose: 40 mg Heparin Sodium (Porcine) (Heparin) 5,000 units SC BID [facility] Last Admin: 03/10/17 07:10 Dose: Not Given Magnesium Sulfate 1 gm/ Sodium (Chloride) 102 mls @ 102 mls/hr IV PRN PRN PRN Reason: MAG LEVEL 1.4 - 2.0 Last Admin: 03/03/17 06:50 Dose: 102 mls Magnesium Sulfate 2 gm/ Device 100 mls @ 100 mls/hr IVPB ASDIR PRN PRN Reason: MAGNESIUM < 1.4 Last Admin: 02/28/17 08:56 Dose: 100 mls Micafungin Sodium 100 mg/ (Sodium Chloride) 100 mls @ 100 mls/hr IVPB DAILY [facility] Last Admin: 03/10/17 09:41 Dose: 100 mls Latanoprost (Xalatan 0.005% Ophth Soln) 1 drop L EYE HS [facility] Last Admin: 03/09/17 20:28 Dose: 1 drop Levothyroxine Sodium (Synthroid) 75 mcg PO 0600 [facility] Last Admin: 03/10/17 05:23 Dose: 75 mcg Losartan Potassium (Cozaar) 50 mg PO DAILY [facility] Last Admin: 03/10/17 08:36 Dose: 50 mg Ccu Electrolyte (Replacement Protocol) 0 each FS PRN PRN PRN Reason: FOR ELECTROLYTE REPLACEMENT Nystatin (Mycostatin Cream) 1 gm TOP BID [facility] Last Admin: 03/10/17 07:17 Dose: Not Given Ondansetron HCl (Zofran) 4 mg IVP Q6H PRN PRN Reason: Nausea/Vomiting Last Admin: 02/19/17 17:55 Dose: 4 mg Timolol Maleate (Timoptic 0.5% Ophth Soln) 1 drop EA EYE BID [facility] Last Admin: 03/10/17 09:41 Dose: 1 drop
[2017-03-10] MEDS: Latanoprost 0.005% Ophth Soln 2.5 ml Bottle L EYE SCH ×2 (20:51→21:01)
[2017-03-11 05:34] LABS: Band 15 % (5-11); Hemoglobin 8.5 g/dL (12.0-16.0); Large Platelets SLIGHT; Lymphocytes 7 % (21-51); MDiff Complete? YES; Mean Corpuscular HGB CONC 28.9 g/dL (32.0-36.0); Mean Corpuscular Hemoglobin 28.7 pg (27.0-31.0); Mean Corpuscular Volume 99.1 fl (81.0-99.0); Mean Platelet Volume 10.6 fL (7.4-10.4); Metamyelocyte 5 % (0-0); Monocytes 37 % (0-10); Myelocyte 5 % (0-0); Neutrophil 31 % (42-75); PLT Morphology Comment Appears Decreased; Platelet Count 77 thou/uL (130-400); RBC Distribution Width 17.2 % (11.5-14.5); Red Blood Cell (RBC) Count 2.97 mill/uL (4.20-5.40); White Blood Cell (WBC) Count 96.6 thou/uL (4.8-10.8)
[2017-03-11] MEDS: Levothyroxine Sodium 75 MCG TAB PO SCH (05:39)
[2017-03-11 05:41] LABS: Anion Gap 13 mmol/L (10-20); BUN (Urea Nitrogen) 13 mg/dL (9.8-20.1); Calc. Creatinine Clearance 64 mL/min (70-130); Calcium 8.4 mg/dL (7.8-10.44); Carbon Dioxide 36 mmol/L (23-31); Chloride 99 mmol/L (98-107); Estimated GFR-MDRD 85; Glucose 69 mg/dL (83-110); Magnesium 1.6 mg/dL (1.6-2.6); Phosphorus 3.7 mg/dL (2.3-4.7); Potassium 2.9 mmol/L (3.5-5.1); Sodium 145 mmol/L (136-145)
--- NOTE | 2017-03-11 08:08 | PDOC.PN ---
- Subjective Encounter Start Date: 03/11/17 Encounter Start Time: 08:06 Subjective: "icky mouth", OW no complaints - Objective Resuscitation Status: Resuscitation Status DNR:Do Not Resuscitate Vital Signs & Weight: Vital Signs (12 hours) Temp Pulse Resp BP Pulse Ox 03/11/17 07:35 98.3 F 100 26 H 153/67 H 95 03/11/17 04:00 97.6 F 85 14 123/58 L 95 03/11/17 00:00 97.9 F 86 16 122/59 L 94 L 03/10/17 21:01 84 03/10/17 20:40 98.7 F 84 22 H 92 L Weight Admit Weight 143 lb Weight 147 lb Most Recent Monitor Data Heart Rate from ECG 97 NIBP 129/75 NIBP BP-Mean 96 Respiration from ECG 32 SpO2 95 I&O: 03/10/17 03/11/17 03/12/17 06:59 06:59 06:59 Intake Total 1420 1300 Output Total 1350 1000 Balance 70 300 Result Diagrams: 03/11/17 04:10 03/11/17 04:10 Phys Exam - Physical Examination Constitutional: NAD oral monilia Neck: no JVD Respiratory: clear to auscultation bilateral Cardiovascular: RRR Gastrointestinal: soft, non-tender, positive bowel sounds Musculoskeletal: no edema Dx/Plan (1) Hypokalemia Code(s): E87.6 - HYPOKALEMIA Status: Acute Comment: KCL 40meq TID, d/c Lasix , repeat K+ level in am (2) Leukocytosis Code(s): D72.829 - ELEVATED WHITE BLOOD CELL COUNT, UNSPECIFIED Status: Acute (3) Normocytic anemia Code(s): D64.9 - ANEMIA, UNSPECIFIED Status: Acute Comment: Likely due to myelodysplastic process, transfuse 1u PRBC's today, repeat CBC in am (4) Septic hip Code(s): M00.9 - PYOGENIC ARTHRITIS, UNSPECIFIED Status: Acute Comment: Local care, ? d/c Ancef in next 24h (5) Status post incision and drainage Code(s): Z98.890 - OTHER SPECIFIED POSTPROCEDURAL STATES Status: Acute Comment: see above #1 (6) Hypothyroidism Code(s): E03.9 - HYPOTHYROIDISM, UNSPECIFIED Status: Chronic Qualifiers: Hypothyroidism type: acquired Qualified Code(s): E03.9 - Hypothyroidism, unspecified Comment: Continue Levothyroxine (7) Myelodysplasia (myelodysplastic syndrome) Code(s): D46.9 - MYELODYSPLASTIC SYNDROME, UNSPECIFIED Status: Chronic - Plan cont current plan of care discuss with dry pan feeder, hematology * .
[2017-03-11] MEDS: Heparin 5,000 UNITS/ML VIAL SC SCH ×2 (09:05→21:59)
[2017-03-11] MEDS: Losartan 25 MG TAB PO SCH (09:08)
[2017-03-11] MEDS: Furosemide 40 MG TAB PO SCH (09:09)
[2017-03-11] MEDS: Micafungin 100 MG in Sodium Chloride 0.9% 100 ML IVPB SCH (09:09)
[2017-03-11] MEDS: Brimonidine Tartrate 0.2% Ophth Soln 5 ml Bottle EA EYE SCH ×2 (09:10→21:57)
[2017-03-11] MEDS: Timolol 0.5% Ophth Soln 5 ml Bottle EA EYE SCH ×2 (09:10→22:03)
[2017-03-11] MEDS: Potassium Chloride 20 MEQ TAB PO SCH ×2 (09:10→17:55)
[2017-03-11] MEDS: Nystatin Cream 15 GM TUBE TOP SCH ×2 (09:11→22:02)
[2017-03-11] MEDS: Dorzolamide HCl 2% Ophth Soln 10 ml Bottle EA EYE SCH ×2 (09:11→21:58)
--- NOTE | 2017-03-11 10:41 | PRG ---
DATE OF SERVICE: 03/11/2017 SUBJECTIVE: Ms. Menendez is doing okay today. She is resting comfortably. No complaints of chest pain or pressure. PHYSICAL EXAMINATION: VITAL SIGNS: Blood pressure 153/67, pulse 100. LUNGS: Clear. CARDIAC: There is a 2/6 systolic murmur. ABDOMEN: Soft, nontender. EXTREMITIES: There is no edema. Reviewing the records, she did have a heart rate is in the 20s, on 03/08/2017. ASSESSMENT: 1. Paroxysmal episodes of bradycardia, sick sinus syndrome. 2. She has a very high white count 94,000. 3. Anemia, stable. 4. Hypokalemia, being treated. 5. She also has a moderate aortic stenosis. PLAN: Dr. Bernabe for Infectious Disease to see whether it is safe to place a pacemaker.
[2017-03-11] MEDS ORDERED: Magnesium Sulfate 2 GM in Sodium Chloride 0.9% 250 ML 250 ML IVPB SCH (16:30)
--- NOTE | 2017-03-11 16:52 | PRG ---
DATE OF SERVICE: 03/11/2017 SERVICE: Pulmonary Medicine. INTERVAL HISTORY: The patient is doing fine from a respiratory standpoint. Her strength is improvin g a little bit. She complains of right foot pain today. There is a little bit of edema in the bilat eral lower extremities, which is roughly symmetric. She is also demonstrating some foot drop. Whene mert I move her foot, she has some discomfort. There was no trauma to that region. This is growing s lowly during this hospital stay. PHYSICAL EXAMINATION: VITAL SIGNS: Afebrile, pulse 82, blood pressure 113/53, respirations 17, saturation 92% on 3.5 liter s nasal cannula. GENERAL: The patient is awake and alert, in no apparent distress. LUNGS: Decent air entry. No prolonged expiratory phase is present. Dependent crackles are evident. HEART: Normal rate, regular. ABDOMEN: Soft, nontender, nondistended. Bowel sounds are positive. MUSCULOSKELETAL: No cyanosis or clubbing. There is a foot drop in the bilateral lower extremities. There is decreasing edema to 2+ in the bilateral lower extremities. GENITOURINARY: Carroll catheter in place. NEUROLOGIC: Grossly nonfocal. LABORATORY DATA: WBC has increased and 96,000, hemoglobin 8.5 and stable. Platelets 77,000. Potass ium 2.9, sodium 145. Basic metabolic profile is unremarkable. Magnesium 1.6. Albumin 2.6, prealbum in 8.0. ASSESSMENT: 1. Acute hypoxic respiratory failure, improving. 2. Community-acquired pneumonia secondary to influenza A. 3. Acute on chronic systolic heart failure. 4. Hypernatremia. 5. Leukocytosis, monocytic predominant cell type. 6. Septic arthritis, unlikely. DISCUSSION AND PLAN: I am going to discontinue her antifungal therapy as this has had no impact on h er white blood cell count. From a purely respiratory perspective, there is nothing that is preventin g the patient from being transitioned out of the hospital. Magnesium and potassium have already been replaced today. We will continue focusing efforts on mobilizing the patient. Hopefully over the ne xt 24-48 hours, the patient will be able to leave the hospital.
[2017-03-11] MEDS: Latanoprost 0.005% Ophth Soln 2.5 ml Bottle L EYE SCH (21:59)
[2017-03-12 05:44] LABS: Anion Gap 11 mmol/L (10-20); BUN (Urea Nitrogen) 12 mg/dL (9.8-20.1); Calc. Creatinine Clearance 64 mL/min (70-130); Calcium 8.4 mg/dL (7.8-10.44); Carbon Dioxide 36 mmol/L (23-31); Chloride 100 mmol/L (98-107); Estimated GFR-MDRD 86; Glucose 97 mg/dL (83-110); Sodium 144 mmol/L (136-145)
[2017-03-12 05:51] LABS: Potassium 2.8 mmol/L (3.5-5.1)
[2017-03-12 06:08] LABS: Band 9 % (5-11); Hemoglobin 7.9 g/dL (12.0-16.0); Lymphocytes 8 % (21-51); MDiff Complete? YES; Mean Corpuscular HGB CONC 29.3 g/dL (32.0-36.0); Mean Corpuscular Hemoglobin 28.9 pg (27.0-31.0); Mean Corpuscular Volume 98.6 fl (81.0-99.0); Mean Platelet Volume 12.5 fL (7.4-10.4); Metamyelocyte 3 % (0-0); Monocytes 39 % (0-10); Myelocyte 4 % (0-0); Neutrophil 37 % (42-75); PLT Morphology Comment Appears Decreased; Platelet Count 83 thou/uL (130-400); RBC Distribution Width 16.9 % (11.5-14.5); Red Blood Cell (RBC) Count 2.73 mill/uL (4.20-5.40)
[2017-03-12] MEDS ORDERED: Potassium Chloride 40 MEQ in Sodium Chloride 0.9% 500 ML IVPB SCH (06:30)
[2017-03-12] MEDS ORDERED: Potassium Chloride 20 MEQ TAB PO SCH (06:30)
[2017-03-12] MEDS: Levothyroxine Sodium 75 MCG TAB PO SCH (06:38)
[2017-03-12] MEDS: Brimonidine Tartrate 0.2% Ophth Soln 5 ml Bottle EA EYE SCH ×2 (08:13→22:53)
[2017-03-12] MEDS: Dorzolamide HCl 2% Ophth Soln 10 ml Bottle EA EYE SCH ×2 (08:14→22:54)
[2017-03-12] MEDS: Potassium Chloride 20 MEQ TAB PO SCH ×2 (08:14→17:05)
[2017-03-12] MEDS: Timolol 0.5% Ophth Soln 5 ml Bottle EA EYE SCH ×2 (08:14→22:52)
[2017-03-12] MEDS: Losartan 25 MG TAB PO SCH (08:14)
[2017-03-12] MEDS: Furosemide 40 MG TAB PO SCH (08:15)
[2017-03-12] MEDS: Heparin 5,000 UNITS/ML VIAL SC SCH ×2 (08:16→22:55)
[2017-03-12] MEDS: Nystatin Cream 15 GM TUBE TOP SCH ×2 (08:16→22:56)
--- NOTE | 2017-03-12 08:35 | PDOC.PN ---
- Subjective Encounter Start Date: 03/12/17 Encounter Start Time: 08:33 Subjective: no fever, sweats, chills - Objective Resuscitation Status: Resuscitation Status DNR:Do Not Resuscitate Vital Signs & Weight: Vital Signs (12 hours) Temp Pulse Resp BP BP Pulse Ox 03/12/17 08:14 88 03/12/17 08:11 97.8 F 88 18 113/65 95 03/12/17 04:00 97.8 F 73 19 110/55 L 93 L 03/12/17 00:00 98.9 F 94 18 101/51 L 96 03/11/17 22:03 110 H 141/61 H Weight Admit Weight 143 lb Weight 148 lb 12.8 oz Most Recent Monitor Data Heart Rate from ECG 97 NIBP 129/75 NIBP BP-Mean 96 Respiration from ECG 32 SpO2 95 I&O: 03/11/17 03/12/17 03/13/17 06:59 06:59 06:59 Intake Total 1300 1210 Output Total 1000 1100 Balance 300 110 Result Diagrams: 03/12/17 04:14 03/12/17 15:04 Phys Exam - Physical Examination Constitutional: NAD Neck: no JVD Respiratory: clear to auscultation bilateral Cardiovascular: RRR, no significant murmur Gastrointestinal: soft, no distention, positive bowel sounds Musculoskeletal: edema present Dx/Plan (1) Hypokalemia Code(s): E87.6 - HYPOKALEMIA Status: Acute Comment: KCL 40meq TID, d/c Lasix , repeat K+ level in am (2) Leukocytosis Code(s): D72.829 - ELEVATED WHITE BLOOD CELL COUNT, UNSPECIFIED Status: Acute (3) Normocytic anemia Code(s): D64.9 - ANEMIA, UNSPECIFIED Status: Acute Comment: Likely due to myelodysplastic process, transfuse 1u PRBC's today, repeat CBC in am (4) Septic hip Code(s): M00.9 - PYOGENIC ARTHRITIS, UNSPECIFIED Status: Acute Comment: Local care, ? d/c Ancef in next 24h (5) Status post incision and drainage Code(s): Z98.890 - OTHER SPECIFIED POSTPROCEDURAL STATES Status: Acute Comment: see above #1 (6) Hypothyroidism Code(s): E03.9 - HYPOTHYROIDISM, UNSPECIFIED Status: Chronic Qualifiers: Hypothyroidism type: acquired Qualified Code(s): E03.9 - Hypothyroidism, unspecified Comment: Continue Levothyroxine (7) Myelodysplasia (myelodysplastic syndrome) Code(s): D46.9 - MYELODYSPLASTIC SYNDROME, UNSPECIFIED Status: Chronic (8) Bradycardia Code(s): R00.1 - BRADYCARDIA, UNSPECIFIED Status: Acute - Plan ID consult pending. -: Dr Winters would prefer to insert pacer in this hospitalization -: ID no infection, ok for pacer * .
--- NOTE | 2017-03-12 12:29 | CON ---
DATE OF CONSULTATION: 03/12/2017 REASON FOR CONSULTATION: Neutrophilia. HISTORY OF PRESENT ILLNESS: An 86-year-old who has a history of hypothyroidism and some bone marrow issues, who was admitted through the emergency room, because of worsening right hip pain, which developed fairly rapidly before admission. No headaches, fever, chills, no dyspnea, no abdominal pain, no diarrhea, some right knee pain, but also worse on the day of admission, inability to bear weight. Initial exam findings, blood pressure 130/60, pulse 99, respirations 16, temperature 99.1, O2 sat 100%. Pertinent findings on the exam, heart and lung examinations were normal, abdomen examination was normal, the lower extremities showed marked limitation in range of motion right hip due to pain. Consultations with various specialists were obtained. Her initial hematology results demonstrated a white cell count of 50,000; the previous one in October was 11,000 that showed predominance of neutrophils, but significant percentage of monocytes as well, and platelet count was within normal limits. Hemoglobin 7.9 with MCV 98. Patient underwent evaluation by Orthopedic Surgery and had incision and drainage of the right hip and there was some yellow, slightly cloudy fluid from the hip capsule and this was sent for culture and sensitivities. The patient developed a postoperative hematoma, which had to be washed out on 02/18/2017. Cultures from the hip showed coagulase-negative Staph , but only in nutrient broth only. No samples were submitted for cell count or crystal analysis. Patient has had numerous complications. She developed respiratory insufficiency and required intervention by Dr. Uriostegui. During that period of time, she was admitted to the ICU. She also developed some pauses and Dr. Winters was consulted and apparently there was a plan to insert a pacemaker. Because of the persistence of neutrophilia, which has worsened to 85 ,000, the patient had a bone marrow. 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 Currently, Ms. Menendez is awake. She is little bit hearing impaired, but she denies any headaches. REVIEW OF SYSTEMS: A 10-point review of systems as above was negative except for mild hip pain on the right side, which improved after the surgical procedure. PAST MEDICAL HISTORY: Hypothyroidism and some form of bone marrow disorder that she is not able to specify the nature of it. ALLERGIES: No known drug allergies. MEDICATION LIST: Tylenol, Ventolin, DuoNeb, Alphagan, Trusopt, Lasix, heparin, Xalatan, levothyroxine, losartan, magnesium, nystatin, ondansetron, potassium, timolol. FAMILY HISTORY: Noncontributory. PAST SURGICAL HISTORY: She had a hysterectomy, bladder suspension, tonsillectomy, cataract removal. SOCIAL HISTORY: Never a smoker. PHYSICAL EXAMINATION: VITAL SIGNS: T-max 98.9, blood pressure 113/65, pulse 88, respirations 18, O2 sat 95%. GENERAL: Appears in no distress. Carroll catheter in place and peripheral IV access. SKIN EXAMINATION: No areas of skin breakdown noted except for the surgical site in the right hip, which appears normal, no lymphadenopathy. HEENT: Ocular movements are conjugate. Pupils are equal and reactive. Oral cavity with no tolowa dee-ni' teeth left. NECK: Supple. LUNGS: With symmetric clear breath sounds. HEART: S1, S2, regular rate. ABDOMEN: Soft. Not distended. No ascites. No bladder distention. She is able to move her toes, some moderate pain in the right hip mobilization. LABORATORY DATA: White cell count is 85,000, hemoglobin 7.5, MCV 98, platelets 83 with 37% neutrophils, 9% bands, 8% lymphocytes, and 39% monocytes. The chemistry with a uric acid 7, potassium 2.8, and creatinine 0.65. She had cytogenetics report, which shows a normal karyotype and a flow cytometry interpretation showed negative Lyme disease serology and autoimmune panel negative as well. ASSESSMENT: 1. Hypothyroidism, myelodysplastic syndrome with possible myeloproliferative disorder. 2. Right hip pain. 3. Hyperuricemia, probably secondary to the myeloproliferative disorder. DISCUSSION: The coagulase-negative Staphylococcus in the hip culture is most likely a contaminant of the sample rather than a true pathogen in view of having been retrieved only from the broth. I believe that the reason for the inflammatory arthropathy is secondary to the myeloproliferative disorder with either crystal-induced arthropathy or autoimmune or direct involvement of the hip joint by the myeloproliferative disorder. 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 If pacemaker is felt to be needed, I feel that there is no reason from Infectious Diseases standpoint to hold that procedure at this point in time. Again, there is no reason from Infectious Diseases standpoint to hold that procedure at this time. [facility] CENTERValentino
--- NOTE | 2017-03-12 14:20 | PRG ---
DATE OF SERVICE: 03/12/2017 SUBJECTIVE: Ms. Menendez is doing well. She is resting comfortably, no complaints. She is not having chest pain or pressure. PHYSICAL EXAMINATION: VITAL SIGNS: Blood pressure 101/59, pulse 87 and regular. LUNGS: Clear. CARDIAC: Normal S1 and S2. ASSESSMENT: 1. Moderate aortic stenosis. 2. Intermittent severe bradycardia, heart rates down to 23 as recently as 03/08/2017. 3. No evidence of any active infection per Dr. Gunter. PLAN: We will discuss with Dr. Ye about placing a pacemaker insertion.
[2017-03-12] MEDS: Latanoprost 0.005% Ophth Soln 2.5 ml Bottle L EYE SCH (22:50)
[2017-03-13] MEDS ORDERED: CEFAZOLIN/Water 2 GM/20 ML SYRINGE SLOW IVP SCH (04:00)
[2017-03-13 05:35] LABS: Anion Gap 12 mmol/L (10-20); BUN (Urea Nitrogen) 12 mg/dL (9.8-20.1); Calc. Creatinine Clearance 61 mL/min (70-130); Calcium 8.6 mg/dL (7.8-10.44); Carbon Dioxide 34 mmol/L (23-31); Chloride 101 mmol/L (98-107); Estimated GFR-MDRD 80; Glucose 96 mg/dL (83-110); Potassium 3.6 mmol/L (3.5-5.1); Sodium 143 mmol/L (136-145)
[2017-03-13 06:09] LABS: Band 16 % (5-11); Hemoglobin 8.5 g/dL (12.0-16.0); Lymphocytes 2 % (21-51); MDiff Complete? YES; Mean Corpuscular HGB CONC 29.7 g/dL (32.0-36.0); Mean Corpuscular Hemoglobin 29.3 pg (27.0-31.0); Mean Corpuscular Volume 98.6 fl (81.0-99.0); Mean Platelet Volume 12.8 fL (7.4-10.4); Metamyelocyte 4 % (0-0); Monocytes 28 % (0-10); Myelocyte 6 % (0-0); Neutrophil 44 % (42-75); PLT Morphology Comment Appears Decreased; Platelet Count 89 thou/uL (130-400); RBC Distribution Width 17.1 % (11.5-14.5); Red Blood Cell (RBC) Count 2.89 mill/uL (4.20-5.40); White Blood Cell (WBC) Count 80.5 thou/uL (4.8-10.8)
[2017-03-13] MEDS: Levothyroxine Sodium 75 MCG TAB PO SCH (06:25)
[2017-03-13] MEDS: Furosemide 40 MG TAB PO SCH (06:26)
--- NOTE | 2017-03-13 08:25 | PDOC.PN ---
- Subjective Encounter Start Date: 03/13/17 Encounter Start Time: 08:25 Subjective: no fever, chills, etc - Objective Resuscitation Status: Resuscitation Status DNR:Do Not Resuscitate MAR Reviewed: Yes Vital Signs & Weight: Vital Signs (12 hours) Temp Pulse Resp BP BP Pulse Ox 03/13/17 07:00 97.8 F 92 16 130/59 L 97 03/13/17 04:00 98.4 F 90 15 147/63 H 96 03/13/17 00:00 97.6 F 95 17 103/57 L 99 03/12/17 22:52 91 115/55 L Weight Admit Weight 143 lb Weight 148 lb 4.8 oz Most Recent Monitor Data Heart Rate from ECG 97 NIBP 129/75 NIBP BP-Mean 96 Respiration from ECG 32 SpO2 95 I&O: 03/12/17 03/13/17 03/14/17 06:59 06:59 06:59 Intake Total 1210 2020 Output Total 1100 1050 Balance 110 970 Result Diagrams: 03/13/17 04:18 03/13/17 04:18 Phys Exam - Physical Examination Constitutional: NAD Respiratory: clear to auscultation bilateral Cardiovascular: RRR, no significant murmur episodes of bradycardia <30 Gastrointestinal: soft, non-tender Musculoskeletal: no edema Dx/Plan (1) Hypokalemia Code(s): E87.6 - HYPOKALEMIA Status: Acute Comment: KCL 40meq TID, d/c Lasix , repeat K+ level in am (2) Leukocytosis Code(s): D72.829 - ELEVATED WHITE BLOOD CELL COUNT, UNSPECIFIED Status: Acute (3) Normocytic anemia Code(s): D64.9 - ANEMIA, UNSPECIFIED Status: Acute Comment: Likely due to myelodysplastic process, transfuse 1u PRBC's today, repeat CBC in am (4) Septic hip Code(s): M00.9 - PYOGENIC ARTHRITIS, UNSPECIFIED Status: Acute Comment: Local care, ? d/c Ancef in next 24h (5) Status post incision and drainage Code(s): Z98.890 - OTHER SPECIFIED POSTPROCEDURAL STATES Status: Acute Comment: see above #1 (6) Hypothyroidism Code(s): E03.9 - HYPOTHYROIDISM, UNSPECIFIED Status: Chronic Qualifiers: Hypothyroidism type: acquired Qualified Code(s): E03.9 - Hypothyroidism, unspecified Comment: Continue Levothyroxine (7) Myelodysplasia (myelodysplastic syndrome) Code(s): D46.9 - MYELODYSPLASTIC SYNDROME, UNSPECIFIED Status: Chronic (8) Bradycardia Code(s): R00.1 - BRADYCARDIA, UNSPECIFIED Status: Acute - Plan cont current plan of care pacer planned, today? * .
[2017-03-13] MEDS: Potassium Chloride 20 MEQ TAB PO SCH ×2 (09:30→18:15)
[2017-03-13] MEDS: Losartan 25 MG TAB PO SCH (09:40)
[2017-03-13] MEDS: Brimonidine Tartrate 0.2% Ophth Soln 5 ml Bottle EA EYE SCH ×2 (09:40→20:58)
[2017-03-13] MEDS: Timolol 0.5% Ophth Soln 5 ml Bottle EA EYE SCH ×2 (09:41→20:58)
[2017-03-13] MEDS: Dorzolamide HCl 2% Ophth Soln 10 ml Bottle EA EYE SCH ×2 (09:41→20:58)
[2017-03-13] MEDS: Nystatin Cream 15 GM TUBE TOP SCH ×2 (09:42→21:00)
[2017-03-13] MEDS: Heparin 5,000 UNITS/ML VIAL SC SCH ×2 (09:42→21:00)
--- NOTE | 2017-03-13 14:13 | PRG ---
DATE OF SERVICE: 03/13/2017 The patient is pleasant, but very confused. PHYSICAL EXAMINATION: VITAL SIGNS: Temperature 97.7, pulse 85, respiration 16, O2 sat 91%, blood pressure 99/53. HEENT: Unremarkable. NECK: No JVD. LUNGS: Fairly clear. CARDIAC: S1 and S2 regular, without murmur. ABDOMEN: Soft. EXTREMITIES: No edema. ASSESSMENT: 1. Status post removal of septic hip hardware. 2. Myelodysplasia. 3. Episodic bradycardia. 4. Status post respiratory failure requiring mechanical ventilation. PLAN: She seems stable from a respiratory standpoint, she is continuing cardiac monitoring. She has moderate aortic stenosis and has had episodic bradycardia. She may eventually need a pacemaker inse rted. There are no further pulmonary concerns at this time. I will step back. Please recall if fur ther pulmonary assistance needed.
[2017-03-13] MEDS ORDERED: CEFAZOLIN/Water 2 GM/20 ML SYRINGE ONE (14:32)
[2017-03-13] MEDS ORDERED: CEFAZOLIN 1 GM VIAL ONE (14:32)
[2017-03-13] MEDS ORDERED: Gentamicin 80 MG/2 ML VIAL ONE (14:32)
--- NOTE | 2017-03-13 18:19 | RAD ---
PORTABLE CHEST ONE VIEW: Date: 03-13-17 Time: 4:22 p.m. History: Dislocation. FINDINGS/IMPRESSION: Comparison made with exam of 03-15-17. There has been interval placement of a left sided pacemaker device. No pneumothorax is seen. The hear t size is stable. There are bilateral pleural effusions. POS: [facility]
[2017-03-13] MEDS: Latanoprost 0.005% Ophth Soln 2.5 ml Bottle L EYE SCH (20:57)
[2017-03-14 04:58] LABS: Hemoglobin 8.4 g/dL (12.0-16.0); Mean Corpuscular HGB CONC 29.5 g/dL (32.0-36.0); Mean Corpuscular Hemoglobin 29.1 pg (27.0-31.0); Mean Corpuscular Volume 98.4 fl (81.0-99.0); Mean Platelet Volume 12.4 fL (7.4-10.4); Platelet Count 91 thou/uL (130-400); RBC Distribution Width 16.7 % (11.5-14.5); Red Blood Cell (RBC) Count 2.88 mill/uL (4.20-5.40); White Blood Cell (WBC) Count 73.1 thou/uL (4.8-10.8)
[2017-03-14 04:59] VITALS: BMI 25.0
[2017-03-14 05:13] LABS: Anion Gap 13 mmol/L (10-20); BUN (Urea Nitrogen) 15 mg/dL (9.8-20.1); Calc. Creatinine Clearance 56 mL/min (70-130); Calcium 8.5 mg/dL (7.8-10.44); Carbon Dioxide 33 mmol/L (23-31); Chloride 100 mmol/L (98-107); Estimated GFR-MDRD 74; Glucose 86 mg/dL (83-110); Potassium 3.5 mmol/L (3.5-5.1); Sodium 142 mmol/L (136-145)
[2017-03-14 05:17] LABS: Band 3 % (5-11); Lymphocytes 17 % (21-51); MDiff Complete? YES; Metamyelocyte 1 % (0-0); Monocytes 38 % (0-10); Neutrophil 41 % (42-75); PLT Morphology Comment Appears Decreased
[2017-03-14] MEDS: Levothyroxine Sodium 75 MCG TAB PO SCH (06:18)
--- NOTE | 2017-03-14 07:26 | CCL ---
CARDIOLOGY PROCEDURE NOTE: Date: 03/13/17 PROCEDURE: Single chamber pacemaker insertion. INDICATION FOR PROCEDURE: This is an 86-year-old female who was admitted with pneumonia. She has had episodes of severe bradyca rdia with heart rates less than 30. She was advised to undergo a single chamber pacemaker in the [facility] for backup pacing in this otherwise 86-year-old ill patient. DESCRIPTION OF PROCEDURE: The patient was taken to the cardiac laboratory chemist where she was prepped and draped in sterile fashion. Us ing modified Seldinger technique, a left subclavian vein was cannulated. Introducer sheath was placed and the lead was then placed into the right ventricle without difficulties or complications. The ful l dictated note can be found in the chart. She was implanted with a Sensia single chamber pacemaker f rom [employer] with a single screw-in lead in the right ventricle without difficulty or complications. The pacemaker was set with the upper rate at 120 and the lower rate was set at 60. No difficulties o r complications were encountered.
[2017-03-14] MEDS: Losartan 25 MG TAB PO SCH (08:49)
[2017-03-14] MEDS: Potassium Chloride 20 MEQ TAB PO SCH ×2 (08:49→18:31)
[2017-03-14] MEDS: Furosemide 40 MG TAB PO SCH (08:50)
[2017-03-14] MEDS: Brimonidine Tartrate 0.2% Ophth Soln 5 ml Bottle EA EYE SCH ×2 (08:51→21:42)
[2017-03-14] MEDS: Dorzolamide HCl 2% Ophth Soln 10 ml Bottle EA EYE SCH ×2 (08:58→21:43)
[2017-03-14] MEDS: Heparin 5,000 UNITS/ML VIAL SC SCH ×2 (08:59→21:47)
[2017-03-14] MEDS: Nystatin Cream 15 GM TUBE TOP SCH ×2 (09:00→22:08)
[2017-03-14] MEDS: Timolol 0.5% Ophth Soln 5 ml Bottle EA EYE SCH ×2 (09:06→21:45)
--- NOTE | 2017-03-14 15:06 | PDOC.PN ---
- Subjective Encounter Start Date: 03/14/17 Encounter Start Time: 15:05 Subjective: post pacer, doing well - Objective Resuscitation Status: Resuscitation Status DNR:Do Not Resuscitate Vital Signs & Weight: Vital Signs (12 hours) Temp Pulse Pulse Pulse Resp BP BP 03/14/17 11:25 97.8 F 87 20 03/14/17 09:53 97 91 98/53 L 03/14/17 09:06 109 H 129/60 03/14/17 08:00 97.9 F 109 H 24 H 03/14/17 03:32 98.1 F 92 22 H BP BP Pulse Ox Pulse Ox Pulse Ox 03/14/17 11:25 119/59 L 94 L 03/14/17 09:53 102/55 L 100 98 03/14/17 09:06 03/14/17 08:00 129/60 92 L 03/14/17 03:32 144/65 H 99 Weight Admit Weight 143 lb Weight 145 lb 14.4 oz Most Recent Monitor Data Heart Rate from ECG 97 NIBP 129/75 NIBP BP-Mean 96 Respiration from ECG 32 SpO2 95 I&O: 03/13/17 03/14/17 03/15/17 06:59 06:59 06:59 Intake Total 2020 700 120 Output Total 1050 1475 Balance 970 -775 120 Result Diagrams: 03/14/17 03:54 03/14/17 03:54 Phys Exam - Physical Examination Neck: no JVD Respiratory: clear to auscultation bilateral Cardiovascular: RRR, no significant murmur Gastrointestinal: soft, positive bowel sounds Musculoskeletal: edema present Dx/Plan (1) Hypokalemia Code(s): E87.6 - HYPOKALEMIA Status: Acute Comment: KCL 40meq TID, d/c Lasix , repeat K+ level in am (2) Leukocytosis Code(s): D72.829 - ELEVATED WHITE BLOOD CELL COUNT, UNSPECIFIED Status: Acute (3) Normocytic anemia Code(s): D64.9 - ANEMIA, UNSPECIFIED Status: Acute Comment: Likely due to myelodysplastic process, transfuse 1u PRBC's today, repeat CBC in am (4) Septic hip Code(s): M00.9 - PYOGENIC ARTHRITIS, UNSPECIFIED Status: Acute Comment: Local care, ? d/c Ancef in next 24h (5) Status post incision and drainage Code(s): Z98.890 - OTHER SPECIFIED POSTPROCEDURAL STATES Status: Acute Comment: see above #1 (6) Hypothyroidism Code(s): E03.9 - HYPOTHYROIDISM, UNSPECIFIED Status: Chronic Qualifiers: Hypothyroidism type: acquired Qualified Code(s): E03.9 - Hypothyroidism, unspecified Comment: Continue Levothyroxine (7) Myelodysplasia (myelodysplastic syndrome) Code(s): D46.9 - MYELODYSPLASTIC SYNDROME, UNSPECIFIED Status: Chronic (8) Bradycardia Code(s): R00.1 - BRADYCARDIA, UNSPECIFIED Status: Acute (9) HTN (hypertension) Code(s): I10 - ESSENTIAL (PRIMARY) HYPERTENSION Status: Acute - Plan cont lasix, losartan, L thyroxine -: awaitng rehab bed * .
[2017-03-14] MEDS: Latanoprost 0.005% Ophth Soln 2.5 ml Bottle L EYE SCH (21:42)
[2017-03-15 05:55] LABS: Anion Gap 13 mmol/L (10-20); BUN (Urea Nitrogen) 15 mg/dL (9.8-20.1); Calc. Creatinine Clearance 58 mL/min (70-130); Calcium 8.2 mg/dL (7.8-10.44); Carbon Dioxide 31 mmol/L (23-31); Chloride 102 mmol/L (98-107); Estimated GFR-MDRD 78; Glucose 115 mg/dL (83-110); Potassium 3.2 mmol/L (3.5-5.1); Sodium 143 mmol/L (136-145)
[2017-03-15 06:37] LABS: Band 26 % (5-11); Hemoglobin 8.1 g/dL (12.0-16.0); Hypochromia SLIGHT = 6-15 cells (100X) (0-5/hpf); Lymphocytes 7 % (21-51); MDiff Complete? YES; Mean Corpuscular HGB CONC 31.7 g/dL (32.0-36.0); Mean Corpuscular Hemoglobin 30.6 pg (27.0-31.0); Mean Corpuscular Volume 96.8 fl (81.0-99.0); Metamyelocyte 22 % (0-0); Monocytes 21 % (0-10); Myelocyte 8 % (0-0); Neutrophil 16 % (42-75); PLT Morphology Comment Appears Decreased; Platelet Count 86 thou/uL (130-400); RBC Distribution Width 16.6 % (11.5-14.5); Red Blood Cell (RBC) Count 2.64 mill/uL (4.20-5.40); White Blood Cell (WBC) Count 70.9 thou/uL (4.8-10.8)
[2017-03-15] MEDS: Potassium Chloride 20 MEQ TAB PO SCH (08:11)
[2017-03-15] MEDS: Furosemide 40 MG TAB PO SCH (08:11)
[2017-03-15] MEDS: Levothyroxine Sodium 75 MCG TAB PO SCH (08:11)
[2017-03-15] MEDS: Heparin 5,000 UNITS/ML VIAL SC SCH (09:58)
[2017-03-15] MEDS: Nystatin Cream 15 GM TUBE TOP SCH (09:59)
[2017-03-15] MEDS: Brimonidine Tartrate 0.2% Ophth Soln 5 ml Bottle EA EYE SCH (09:59)
[2017-03-15] MEDS: Losartan 25 MG TAB PO SCH (09:59)
[2017-03-15] MEDS: Dorzolamide HCl 2% Ophth Soln 10 ml Bottle EA EYE SCH (09:59)
[2017-03-15] MEDS: Timolol 0.5% Ophth Soln 5 ml Bottle EA EYE SCH (10:00)
--- NOTE | 2017-03-15 13:51 | DIS ---
TRANSFER OF CARE NOTE DATE OF DISCHARGE: 03/15/2017 PRIMARY CARE PROVIDER: Listed as Dr. Anthony Cardoza at one point and Dr. Rosamaria Huston in another. DISCHARGE DISPOSITION: She is being discharged to [facility] rehab. FINAL DIAGNOSES: 1. Symptomatic bradycardia requiring pacemaker. 2. Acute respiratory failure with hypoxemia. 3. Acute kidney injury. 4. Altered mental status. 5. Arthritis of the right hip. 6. Congestive heart failure. 7. Volume overload. 8. Hypertension. 9. Hypernatremia. 10. Hypokalemia. 11. Myelodysplastic syndrome. 12. Normocytic anemia. 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 14. Right hip joint effusion. 15. Hypothyroidism. DISCHARGE MEDICATIONS: Timolol 0.5% half drop each eye b.i.d., Xalatan 0.005% 1 drop each eye b.i.d. , Brinzolamide-brimonidine, Simbrinza 1 drop each eye b.i.d., Ventolin nebulizer 2.5 mg neb q.2h. p.r .n., Lasix 40 mg a day, hydrocodone 7.5/325 one or two tablets every 4 hours as needed for pain, DuoN eb 3 mL q.6., Synthroid 75 mcg a day, losartan 50 mg a day, potassium chloride 20 mEq a day. ALLERGIES: None. PENDING AT THE TIME OF DISCHARGE: Nothing. CODE STATUS: DNR. HOSPITAL COURSE: The patient originally admitted to the hospital by Dr. Rigo Saldaña on 02/06/20 17. She was taken to the operating room for incision and drainage of presumed septic right hip. Hip fluid x4, one out of four positive for coagulase negative staph. Blood cultures negative. [facility] t laboratory at that time; her white count was 50,000 with metamyelocytes and myelocytes, hemoglobin 9.7, platelet count 249,000. Her initial sodium was 129, potassium 3.6, creatinine 0.66. BUN 11, C- reactive protein was high at 15.8. On 02/06/2017, [facility] was consulted for acute arthritis and high white count. She had a history of elevated white counts, and had a peripheral smear consistent with myelodysplastic s yndrome, had not had a biopsy. On 02/10/2017, she was postop 5 days on vancomycin and Zosyn. No fev er, etc. White count was 27.5, hemoglobin 22.4. Her sodium normalized at 136, BUN and creatinine we re 13 and 1.16. On 02/12/2017 lower extremity MRI was done showing loculated fluid. On 02/11/2017 s he complained of abdominal pain, made n.p.o. Acute abdominal series suggested ileus, follow up abdom inal series on 02/15/2017 revealed interval placement of nasogastric tube with a question of a bowel obstruction, placed on IV fluids and pain medicines. On 02/15/2017 she had a consultation with Dr. Eboni Reza, General Surgery. On 02/16/2017 decision was made that there was no necessary interven tion in the hip. Ileus was still the diagnosis, small bowel follow through was obtained 02/17/2017, was still consistent with partial obstruction or ileus. On 02/18/2017 consultation with Hematology/O ncology. The patient was anemic and was transfused at that point. On 02/18/2017 the patient went ba ck to the operating room with Dr. Saldaña for incision and drainage of hematoma, right iliac crest b one marrow aspirate and biopsy. The patient was still suffering from either small-bowel obstruction or ileus. On 02/27/2017 a Josue Jack was called for respiratory distress. Dr. Maciej Uriostegui, pulmon ologist was consulted. She was moved to the ICU and placed on BiPAP, diagnosis of acute respiratory failure and volume overload was made post chest x-ray showed bilateral pulmonary edema and effusions. On 02/28/2017 she was awake, talkative, but had had spells of severe bradycardia with heart rates i n the 20s. Chest x-ray on 03/01/2017 demonstrated continuing pulmonary edema. On 02/28/2017 she was seen in consultation by Dr. Hal Winters for bradycardia. The patient improved with diuresis. On 03/07/2017 chest x-ray demonstrated very significant clearing of her lung cordero. Her white count co ntinued to be severely high, diagnosis of acute hypoxic respiratory failure with community-acquired p neumonia with acute on chronic heart failure was made. At this time the white count was running arou nd 70,000. Chemistry: Sodium 147, potassium 2.9. Renal function normal. When I first saw the lauren ent on 03/11/2017 she complained of an icky mouth, otherwise, no complaints. Vital signs were stable , afebrile, pulse ox was 94-95 on room air. In discussion with Dr. Winters about her high white count and need for pacemaker, Dr. Gunter was consulted. After review he stated there was no reason to worr y about an infectious process at this time, a pacemaker could be placed. On 03/13/2017 the patient u nderwent placement of a cardiac pacemaker by Dr. Ab Ye. At this point, the patient is alert, sebastián ented, cooperative. Temperature 95, pulse 99, respirations 17, O2 sat 94, blood pressure 119/64. Ch est is clear to exam. Heart has a regular rate and rhythm. CURRENT LABORATORY: Sodium 143, potassium 3.2, BUN 15, creatinine 0.71. White count 80,500, hemoglo bin 8.5. The patient is being transferred to [facility] for continuing physical therapy, oc cupational therapy as she recovers from this illness. The patient will be followed up at [facility]. Post-discharge, she will be followed up by Dr. Cardoza or Dr. Rosamaria Huston in [place]. Forty minutes spent preparing this discharge.
--- NOTE | 2017-03-15 16:35 | PRG ---
DATE OF SERVICE: 03/15/2017 SUBJECTIVE: Ms. Menendez is doing well. She is about to be transferred to [facility] for further re habilitation. She feels weak, but no chest pain or pressure. PHYSICAL EXAMINATION: VITAL SIGNS: Blood pressure 129/68, pulse is in 90s, in sinus. LUNGS: Clear. CARDIAC: Normal S1 and S2. She does have aortic stenosis murmur as before. ASSESSMENT: 1. Aortic stenosis not severe, but on echocardiogram was moderate peak gradient of 40 mmHg systolic, mean gradient 20 mmHg systolic. 2. Bradycardiac syndrome, paroxysmal with long pauses. 3. Status post-single chamber pacemaker. PLAN: Okay to be released. I would need to see her back in the office in a few months. Ultimately, we will probably need transcutaneous aortic valve replacement, but not indicated at this point, his aortic stenosis is not severe enough to justify that at this stage.
[2017-03-15 18:27] VITALS: BP 131/59; TEMP 98
== END 2017-03-15 15:44 | DRG 480 ==
LOC: ERS 16:18 → SDC/OP 18:53 → SURG A 21:00 → CCU 02-27 09:11 → IMCU/EMU 03-03 12:29 → 2NO 03-05 15:24
PROVIDERS: ADMIT Orthopaedic Surgery; ATTEND Orthopaedic Surgery
PROC: 0S9900Z Drainage of Right Hip Joint with Drainage Device, Open Approach (ICD-10-PCS; principal; 2017-02-05)
PROC: 07DR3ZX Extraction of Iliac Bone Marrow, Percutaneous Approach, Diagnostic (ICD-10-PCS; 2017-02-18)
PROC: 0H9HX0Z Drainage of Right Upper Leg Skin with Drainage Device, External Approach (ICD-10-PCS; 2017-02-18)
PROC: 5A09357 Assistance with Respiratory Ventilation, Less than 24 Consecutive Hours, Continuous Positive Airway Pressure (ICD-10-PCS; 2017-02-27)
PROC: 30233N1 Transfusion of Nonautologous Red Blood Cells into Peripheral Vein, Percutaneous Approach (ICD-10-PCS; 2017-03-04)
PROC: 0JH604Z Insertion of Pacemaker, Single Chamber into Chest Subcutaneous Tissue and Fascia, Open Approach (ICD-10-PCS; 2017-03-13)
PROC: 02HK3JZ Insertion of Pacemaker Lead into Right Ventricle, Percutaneous Approach (ICD-10-PCS; 2017-03-13)
DX: M11.8 Other specified crystal arthropathies (principal); J96.01 Acute respiratory failure with hypoxia; K56.609 Unspecified intestinal obstruction, unspecified as to partial versus complete obstruction; I50.43 Acute on chronic combined systolic (congestive) and diastolic (congestive) heart failure; N17.9 Acute kidney failure, unspecified; I49.5 Sick sinus syndrome; C93.10 Chronic myelomonocytic leukemia not having achieved remission; D62 Acute posthemorrhagic anemia; J10.01 Influenza due to other identified influenza virus with the same other identified influenza virus pneumonia; E87.0 Hyperosmolality and hypernatremia; K56.7 Ileus, unspecified; I13.0 Hypertensive heart and chronic kidney disease with heart failure and stage 1 through stage 4 chronic kidney disease, or unspecified chronic kidney disease; L76.32 Postprocedural hematoma of skin and subcutaneous tissue following other procedure; B37.49 Other urogenital candidiasis; D71 Functional disorders of polymorphonuclear neutrophils; I35.0 Nonrheumatic aortic (valve) stenosis; F03.90 Unspecified dementia, unspecified severity, without behavioral disturbance, psychotic disturbance, mood disturbance, and anxiety; D46.9 Myelodysplastic syndrome, unspecified; E87.6 Hypokalemia; E03.9 Hypothyroidism, unspecified; M16.11 Unilateral primary osteoarthritis, right hip; N18.9 Chronic kidney disease, unspecified; M25.451 Effusion, right hip; E79.0 Hyperuricemia without signs of inflammatory arthritis and tophaceous disease; H40.9 Unspecified glaucoma; H35.30 Unspecified macular degeneration; Z94.7 Corneal transplant status; Z66 Do not resuscitate; Y83.9 Surgical procedure, unspecified as the cause of abnormal reaction of the patient, or of later complication, without mention of misadventure at the time of the procedure; Y92.234 Operating room of hospital as the place of occurrence of the external cause
CPT/HCPCS: 33207; 36415; 36416; 36430; 71010; 71045; 74000; 74020; 74022; 74176; 74250; 80048; 80053; 80076; 80202; 81001; 81003; 81015; 82040; 82805; 83605; 83630; 83735; 83880; 84100; 84134; 84443; 84484; 84550; 85007; 85025; 85027; 85060; 85097; 85652; 86021; 86038; 86140; 86430; 86850; 86900; 86901; 87040; 87070; 87086; 87102; 87205; 87206; 88184; 88237; 88264; 88280; 88305; 88311; 88313; 93005; 93010; 93306; 93798; 94640; 94660; 96374; A4216; C1786; C1898; C9113; G8978-GP-CK; G8978-GP-CL; G8978-GP-CM; G8979-GP-CI; G8979-GP-CJ; G8987-GO-CK; G8987-GO-CM; G8988-GO-CI; G8988-GO-CK; G8996-GN-CI; G8996-GN-CJ; G8997-GN-CI; J0131; J0690; J1100; J1450; J1580; J1644; J1650; J1940; J1956; J2001; J2248; J2270; J2405; J2543; J2704; J2765; J2920; J3010; J3370; J3475; J3480; J7042; J7050; J7611; J7620; P9016; S0020